=== PATIENT | female | born 1975 | race African-American/Black ===

== ENCOUNTER 2022-09-21 19:31 | Inpatient (IN) | payer OTHER, MEDICAID, SELFPAY ==
--- NOTE | ~2022-09-21 | XR_ITS ---
EXAMINATION: XR chest 1V portable Exam Date/Time: 09/26/2022 19:40 AIRCRAFT SYSTEMS REPAIRER HISTORY: PICC placement Comparison: CT abdomen and pelvis, same date. RESULT: Lines, tubes, and devices: New right upper extremity PICC, tip terminating at the cavoatrial junctio n. Lungs and pleura: Bibasilar atelectasis, otherwise clear. Cardiomediastinal silhouette: Stable. Other: No acute osseous or upper abdominal finding. IMPRESSION: Right upper extremity PICC, in good position. Reviewed, dictated and finalized at location K. RAFT SYSTEMS REPAIRER
--- NOTE | ~2022-09-21 | CT_ITS ---
EXAMINATION: CT guide absc cath placement DATE: 09/27/2022 14:39 INDICATION: Abdominal abscess. TECHNIQUE: The procedure including the risks, benefits, and alternatives was discussed with the patie nt. Risks discussed included bleeding and infection. The patient understood the risks and benefits an d agreed to proceed. The skin overlying the abdomen was prepped and draped in usual sterile fashion. Anesthetic was administered with 1% lidocaine subcutaneously. Moderate sedation was achieved with 1 mg Versed IV and 100 mcg fentanyl IV. An 18 gauge trochar needle was inserted into the abdominal absc ess with CT guidance. The needle was exchanged over a wire for 6 Togolese and 8 Togolese dilators and the n for an 8.5 Togolese pigtail catheter. The catheter was stitched to the skin, and a sterile dressing w as applied. The mA was adjusted according to patient size. Iterative reconstruction technique was emp loyed. The dose-length product was 327.63 mGy-cm. There were no immediate complications. FINDINGS: CT images demonstrate the catheter within the abdominal abscess. 5 mL fluid was aspirated f or testing. IMPRESSION: 1. Successful CT-guided abdominal abscess drainage. 2. 5 mL opaque, calloway fluid was sent for aerobic and anaerobic cultures. Reviewed, dictated and finalized at location A. TRIC TRACK SWITCH MAINTAINER
--- NOTE | ~2022-09-21 | CT_ITS ---
EXAMINATION: CT abdomen pelvis wo con DATE: 09/26/2022 10:01 INDICATION: diverticulitis c microperf TECHNIQUE: Computed tomography (CT) of the abdomen and pelvis was performed without intravenous contr ast. Automated exposure control and iterative reconstruction technique were employed. The dose-length product was 439.34 mGy-cm. COMPARISON: 09/22/2022. FINDINGS: Lower thorax: Bibasilar atelectasis. Liver: Normal. Biliary/Gallbladder: Gallbladder is absent. No bile duct dilation. Pancreas: No mass or duct dilation. Spleen: Normal. Adrenals:No mass. Kidneys: No mass, stone, or hydronephrosis. GI tract: Similar short segment wall thickening in the left/mid abdominal sigmoid colon. Inflammatory change involving an adjacent loop of small bowel. No small or large bowel dilation. Mild asymmetric wall thickening of the adjacent appendix, likely reactive. Mesentery/Peritoneum: Small volume free air in the upper, nondependent abdomen and mesentery. Increas ed inflammatory change in the mid/lower abdominal mesentery, with a new fluid and gas collection mirian uring 3.1 x 3.7x 4.2 cm adjacent to the thickened portion of the sigmoid in the area of prior micrope rforation. Inflammatory changes involve adjacent bowel loops, the adjacent appendix, and likely the p elvic organs. Retroperitoneum: No mass. Pelvis: Bladder wall thickening and surrounding inflammatory change. No significant free pelvic fluid . Soft Tissues: Soft tissues and body wall unremarkable. Bones: No acute osseous finding. IMPRESSION: Worsening findings of acute, complicated diverticulitis, with perforation, new small volume pneumoper itoneum, worsening inflammatory change, and a new 4.2 cm pericolonic gas and fluid collection which m ay represent early pericolonic abscess. Reviewed, dictated and finalized at location K. RVISOR RECLAMATION IMPRESSION: Worsening findings of acute, complicated diverticulitis, with perforation, new small volume pneumoperitoneum, worsening inflammatory change, and a new 4.2 cm pericolonic gas and fluid collection which may represent early pericolonic absc ess.
--- NOTE | ~2022-09-21 | CT_ITS ---
CT Abdomen and Pelvis with contrast. History: Periumbilical pain. Spiral CT of the abdomen and pelvis was performed after the administration of intravenous contrast. 1 00 cc of Omnipaque 350 was administered intravenously without complication. Dose reduction technique was used on this scan by utilizing automated exposure control and iterative reconstruction technique. The dose-length product (DLP) was 434.55 mGy-cm. Findings: Scans through the lung bases are clear. Small hiatal hernia noted. Several tiny scattered hepatic cysts are noted. Cholecystectomy clips present. The spleen, pancreas, adrenals and kidneys are within normal limits. No evidence of aortic aneurysm. No lymphadenopathy i s seen. There is no evidence of bowel obstruction. There is wall thickening of the sigmoid colon with pericol onic inflammatory change and several tiny bubbles of extraluminal air in this region. No mature/drain able abscess. There is also wall thickening of several adjacent small bowel loops, most likely reacti ve. Images through the pelvis were performed. Urinary bladder unremarkable. No adnexal mass evident. No a scites is seen. Impression: Inflammatory process in the left lower quadrant, most compatible with acute sigmoid diverticulitis wi th microperforation and small bubbles of free air, and surrounding inflammatory changes. Probable sec ondary, reactive wall thickening of adjacent small bowel loops. Primary small bowel enteritis felt to be less likely. No abscess evident at this time. Reviewed, dictated and finalized at [facility]. SERVICE CONTINUITY SUPERVISOR Impression: Inflammatory process in the left lower quadrant, most compatible with acute sig moid diverticulitis with microperforation and small bubbles of free air, and de [place] santos rrounding inflammatory changes. Probable secondary, reactive wall thickening of adjacent small bowel loops. Primary small bowel enteritis felt to be less like ly. No abscess evident at this time.
[2022-09-21 20:03] VITALS: BP 156/100; PULSE 82; RESP 18; TEMP 36.9; O2SAT 100
--- NOTE | 2022-09-21 22:19 | ED.ABDPAIN ---
HPI - Abdominal Pain General Chief Complaint: Abdominal Pain <JESUS Mcclain Last Filed: 09/22/22 02:50> Stated Complaint: abd pain <JESUS Mcclain Last Filed: 09/22/22 02:50> Time Seen by Provider: 09/21/22 22:05 <JESUS Mcclain Last Filed: 09/22/22 02:50> History of Present Illness HPI narrative: Patient is a 47-year-old female here for evaluation of abdominal pain over the past day. Patient states the pain is sharp and stabbing in nature and is located around her umbilicus. She also notes countless episodes of nausea and vomiting over the past day and has been unable to tolerate any p.o. Reports subjective fevers but has not taken her temperature. No diarrhea, constipation, urinary symptoms. Denies history of previous similar sensation. No history of abdominal surgeries. <JESUS Mcclain Last Filed: 09/22/22 02:50> Related Data Allergies/Adverse Reactions: Allergies Allergy/AdvReac Type Severity Reaction Status Date / Time No Known Allergies Allergy Verified 09/21/22 20:11 <JESUS Mcclain Last Filed: 09/22/22 02:50> Review of Systems Review of Systems: Gen: Reports chills. Eyes: Denies eye pain or visual change ENT: Denies congestion Respiratory: Denies shortness of breath or cough CV: Denies chest pain or palpitations GI: Reports abdominal pain, nausea and vomiting : denies burning, urgency, frequency or hematuria Musculoskeletal: Denies back pain or muscle pain Neuro: Denies numbness, tingling, weakness or focal weakness Skin: Denies rash Except as documented, all other systems reviewed and negative <JESUS Mcclain Last Filed: 09/22/22 02:50> Exam Narrative: APPEARANCE: Ill-appearing, lying on side of stretcher with drool coming out of the mouth holding emesis bag Head: Normocephalic and atraumatic. EYES: PERRLA/EOMI, conjunctivae clear NOSE: No nasal drainage EARS: External ear normal in appearance THROAT: Oropharynx is clear. Mucous membranes are moist. NECK: Supple. No adenopathy, no masses. RESPIRATORY: Airway patent, respirations nonlabored. Clear to auscultation bilaterally, no rales, rhonchi, wheezing. CARDIOVASCULAR: Regular rate and rhythm without murmurs, rubs, or gallops. ABDOMINAL: Tender to palpation in the epigastric/periumbilical region, involuntary guarding. MUSCULOSKELETAL: Extremities are warm and well-perfused. Moves all extremities well. No edema. NEURO: Normal speech. No focal neurologic deficits. SKIN: Skin is warm and dry. No rashes. PSYCHIATRIC: Normal affect/mood. <Za Garber PA-C - Last Filed: 09/22/22 02:50> Course CLOTH WASHER OPERATOR/PA Physician Supervision For this encounter, I have reviewed the mid-level provider documentation, treatment plan and medical decision making. I have had [id number] time with the patient. Physical exam revealed a 47-year-old female with a diffusely tender abdomen. Worse in the left lower quadrant. CT abdomen pelvis showed colitis with microperforations. Suspect diverticulitis. Patient was started on IV antibiotics, given fluid resuscitation and pain medication. Coordination of care involved calls to the surgeon Dr. Bae as well as the hospitalist Dr. Tucker. Patient will be admitted to the hospital for further management.All questions answered. Patient in agreement w/ disposition. <Royer Mcdaniel MD - Last Filed: 09/22/22 03:36> Vital Signs Vital signs: Vital Signs Temperature 98.5 F 09/21/22 20:03 Pulse Rate 82 09/21/22 20:03 Respiratory Rate 18 09/21/22 20:03 Blood Pressure 156/100 H 09/21/22 20:03 Pulse Oximetry 100 09/21/22 20:03 Oxygen Delivery Room Air 09/21/22 20:03 Temperature 98.5 F 09/21/22 20:03 Pulse Rate 80 09/22/22 02:34 Respiratory Rate 19 09/22/22 02:34 Blood Pressure 119/89 09/22/22 02:34 Pulse Oximetry 93 09/22/22 02:34 Oxygen Delivery Room Air
[2022-09-21 22:50] LABS: Basophils Absolute Auto 0.1 K/mm3 (0.0-0.1); Basophils Percent Auto 0.4 % (0.2-1.2); Eosinophils Percent Auto 0.1 % (0-4.4); Hematocrit 35.1 % (37.0-47.0); Hemoglobin 11.9 g/dL (12.0-15.0); Immature Granulocyte Absolute 0.07 K/mm3 (0.00-0.031); Immature Granulocyte Percent A 0.5 % (0-0.5); Lymphocytes Absolute Auto 0.42 K/mm3 (0.9-3.2); Lymphocytes Percent Auto 2.9 % (18.3-44.2); Mean Corpuscular HGB Conc 33.9 g/dl (32-36); Mean Corpuscular Volume 85.6 fl (80-100); Mean Platelet Volume 9.2 fl (7.4-10.4); Monocytes Absolute Auto 0.4 K/mm3 (0.1-0.6); Monocytes Percent Auto 2.4 % (2.6-8.5); Neutrophils Absolute Auto 13.6 K/mm3 (1.3-6.7); Neutrophils Percent Auto 93.7 % (45.5-73.1); Platelet Count Result 400 k/mm3 (150-375); White Blood Count 14.5 K/mm3 (4.5-10.0)
[2022-09-21 23:00] VITALS: BP 130/74; PULSE 80; RESP 14; O2SAT 98
[2022-09-21] MEDS: LACTATED RINGERS 1,000 ML 999 ML IV CONT (23:31)
[2022-09-21] MEDS: MORPHINE SULFATE (*CRX) 4 MG/ML INJ IV PUSH (23:33)
[2022-09-21] MEDS: FAMOTIDINE 20 MG/2 ML VIAL IV PUSH (23:33)
[2022-09-21] MEDS: ONDANSETRON INJ 4 MG/2 ML VIAL IV PUSH (23:33)
--- NOTE | 2022-09-22 | PC.NURSE ---
RN asked pt. for UA, pt. states she cannot go.
[2022-09-22 00:17] LABS: Alanine Aminotransferase 22 U/L (6-35); Albumin Level 4.9 g/dL (3.5-5.1); Alkaline Phosphatase 89 U/L (38-126); Anion Gap 9 mmol/L (8-16); Aspartate Amino Transferase 26 U/L (14-36); Bilirubin,Total 0.7 mg/dL (0.2-1.3); Blood Urea Nitrogen 14 mg/dL (7-17); Calcium 9.9 mg/dL (8.4-10.2); Carbon Dioxide 27 mmol/L (22-30); Chloride 101 mmol/L (98-107); Estimated CRCL calculation 83 ml/min; Estimated Glomerular Filt Rate > 60; Glucose 160 mg/dL (65-110); Lipase 32 U/L (23-300); Potassium 3.8 mmol/L (3.4-5.0); Sodium 137 mmol/L (137-145)
[2022-09-22 00:21] VITALS: BP 173/91; PULSE 75; RESP 14; O2SAT 100
[2022-09-22] MEDS: LACTATED RINGERS 1,000 ML 999 ML IV CONT (00:45)
[2022-09-22] MEDS: MORPHINE SULFATE (*CRX) 2 MG/ML INJ IV PUSH (00:45)
--- NOTE | 2022-09-22 01:00 | PC.NURSE ---
Pt. unable to provided urine sample.
[2022-09-22] MEDS: HYDROmorphone HCL INJ (*CRX) 1 MG/ML SYR IV PUSH ×5 (02:27→18:16)
[2022-09-22 02:29] LABS: Appearance Urine Clear (Clear); Bilirubin Urine Negative (Negative); Blood Urine Trace-lysed (Negative); Color Urine Yellow (Yellow); Glucose Urine UA Negative (Negative); Ketones Urine Negative (Negative); Leukocyte Esterase Ur Negative LEU/UL (Negative); Nitrate Urine Negative (Negative); Protein Urine 1+ mg/dL (Negative); Urobilinogen Urine 0.2 mg/dL (<2.0)
[2022-09-22 02:34] VITALS: BP 119/89; PULSE 80; RESP 19; O2SAT 93
[2022-09-22 02:35] LABS: Bacteria Urine Trace /hpf; Mucus Urine Rare /lpf; RBC Urine 0-2 /hpf (0-2); WBC Urine 0-3 /hpf
[2022-09-22 02:46] LABS: Add Urine Microscopic? YES
--- NOTE | 2022-09-22 02:46 | PM.IMHP ---
H&P: HPI History of Present Illness Date/Time: 09/22/22 02:46 Chief Complaint: Abdominal pain Narrative: 47-year-old female with known significant past medical history presents to the emergency room with abdominal pain for the last 2 weeks which has been worse in the last 3 days with nausea and vomiting, pain is diffusely localized. Denies any fevers, rigors, chills, denies any melena, bright red blood per rectum, no hematemesis. A CT of abdomen and pelvis was reported as: Impression: Inflammatory process in the left lower quadrant, most compatible with acute sigmoid diverticulitis with microperforation and small bubbles of free air, and surrounding inflammatory changes. Probable secondary, reactive wall thickening of adjacent small bowel loops. Primary small bowel enteritis felt to be less likely. No abscess evident at this time. Review of Systems Review of Systems: Abdominal pain, nausea, vomiting. Constitutional: Constitutional: Denies chills, Denies fever(s), Denies malaise, Denies night sweats and Reports poor appetite Eyes: Eyes: Denies change in vision ENT: Denies dysphagia and Denies odynophagia Cardiovascular: Cardiovascular: Denies chest pain, Denies leg edema, Denies lightheadedness and Denies palpitations Respiratory: Respiratory: Denies chest congestion, Denies cough, Denies excessive phlegm production, Denies pain on inspiration and Denies dyspnea on exertion Gastrointestinal: Gastrointestinal: Reports abdominal pain, Denies melena, Denies hematochezia, Denies coffee ground emesis, Denies dyspepsia, Denies diarrhea, Reports nausea and Reports vomiting Genitourinary: Genitourinary: Denies dysuria Musculoskeletal: Musculoskeletal: Denies back pain, Denies joint swelling and Denies muscle weakness Integumentary/Breasts: Skin/Breast: Denies rash Neurologic: Denies focal weakness and Denies Sensory deficit (Neuro) Psychiatric: Psychiatric: Reports no additional psychiatric complaints and Reports as per HPI Endocrine: Endocrine: Denies cold intolerance, Denies flushing, Denies heat intolerance, Denies polyphagia, Denies polydipsia and Denies palpitations Hematologic/Lymphatic: Hematologic/Lymphatic: Reports no additional hematologic/lymphatic complaints and Reports as per HPI Allergic/Immunologic: Allergic/Immunologic: Reports no additional allergic/immunologic complaints and Reports as per HPI [facility] Past Medical History Medical History No significant past medical history Surgical History Surgical History History of ankle surgery History of laparoscopic cholecystectomy History of tubal ligation Social History Social History Smoking status: Never smoker Second hand tobacco smoke exposure: No Alcohol intake: current Substance use: former Substance use type: marijuana Lack of Transportation: No Lack of Food: Never True Current Housing: I Have Housing Concerned About Future Housing: No Difficulty Paying Gas/Electric Bills: No Difficulty Paying for Meds: No Currently Unemployed: No Education: High School Diploma/GED Difficulty w/ Childcare or Family Care: No Occupation/Education: occupation Additional occupation/education comments: Works for [employer] Spiritual care concerns: No Meds Home Medications and Allergies Home Medications Medication Instructions Recorded Confirmed Type No Home Medications 09/22/22 09/22/22 History Allergies Allergy/AdvReac Type Severity Reaction Status Date / Time No Known Allergies Allergy Verified 09/21/22 20:11 Vital Signs Vital Signs - 24 hr 09/21/22 20:03 09/21/22 23:00 09/22/22 00:21 Temperature 98.5 F Pulse Rate 82 80 75 Respiratory Rate 18 14 14 Blood Pressure 156/100 H 130/74 173/91 H Pulse Oximetry 100 98 100 Oxygen Delivery Room
[2022-09-22 03:02] LABS: Lactic Acid Reflex 1.5 mmol/L (0.7-2.0)
[2022-09-22 03:30] LABS: Influenza A QL RT-PCR Negative (Negative); Influenza B QL RT-PCR Negative (Negative); SARS-CoV-2 RNA PCR Negative
[2022-09-22] MEDS: LACTATED RINGERS 1,000 ML 150 ML IV CONT (03:55)
[2022-09-22 04:39] VITALS: BMI 29.0
[2022-09-22 06:00] VITALS: BP 165/84; PULSE 78; RESP 14; TEMP 36.9; O2SAT 100
--- NOTE | 2022-09-22 09:45 | PM.IMPN ---
Progress Note: A&P Assessment and Plan (1) Diverticulitis: Code(s): K57.92 - Diverticulitis of intestine, part unspecified, without perforation or abscess without bleeding Status: Acute Assessment and Plan: CT of the abdomen and pelvis shows inflammatory process in the lower left quadrant compatible with acute sigmoid diverticulitis with micro perforation small bubbles of free air and inflammatory changes continue IV Zosyn for now general surgery consult Pain medications on board IV fluids NPO for now (2) Abdominal pain: Code(s): R10.9 - Unspecified abdominal pain Status: Acute Assessment and Plan: Likely secondary to diverticulitis Supportive care pain medications available (3) Nausea and vomiting: Code(s): R11.2 - Nausea with vomiting, unspecified Status: Acute Assessment and Plan: NPO except for ice chips seems to be resolved (4) Hypertension: Code(s): I10 - Essential (primary) hypertension Status: Acute Assessment and Plan: blood pressure slightly high at 148/72 on no home medications continue trend most likely elevated due to patient's pain and diverticulitis Time Spent With Patient Time: 51 minutes Time with patient: Greater than 35 minutes Subjective Date/time seen: 09/22/22944 Interval history: 09/22/22944 Patient seems to be ok. She is still having some pretty severe abdominal pain, which she rates a 10/10. She also stated that it starts in the middle then radiates all over. She denies any chest pain, shortness a breath, nausea, vomiting, diarrhea constipation. She stated that she does feel very weak. 09/22/22? 02:46 47-year-old female with known significant past medical history presents to the emergency room with abdominal pain for the last 2 weeks which has been worse in the last 3 days with nausea and vomiting Review of Systems Review of Systems: All systems reviewed & are unremarkable except as noted in HPI and below Exam Narrative: General: well-nourished, well-appearing 47-year-old female, sitting up in bed, comfortable, NARD Neuro: awake, alert and oriented x4, speech clear, no focal neuro deficits noted HEENMT: normocephalic, atraumatic, EOMI, sclerae anicteric, moist oral mucosa Respiratory: Clear to auscultation bilaterally without crackles, rhonchi or wheezes, nonlabored breathing Cardio: regular rate, regular rhythm with S1-S2 Abdomen: nondistended, no bowel sounds, soft, tender to palpation Extremities: no edema, erythema, or tenderness to palpation, DP pulses 2+ bilaterally Skin: no rashes or lesions, warm and dry Psych: appropriate mood and affect, judgment and insight intact Objective Data Vital Signs Vital Signs: Vital Signs - 24 hr 09/21/22 20:03 09/21/22 23:00 09/22/22 00:21 Temperature 98.5 F Pulse Rate 82 80 75 Respiratory Rate 18 14 14 Blood Pressure 156/100 H 130/74 173/91 H Pulse Oximetry 100 98 100 Oxygen Delivery Room Air 09/22/22 02:34 09/22/22 06:00 09/22/22 11:02 Temperature 98.4 F Pulse Rate 80 78 Respiratory Rate 19 14 Blood Pressure 119/89 165/84 H Pulse Oximetry 93 100 94 Oxygen Delivery Room Air 09/22/22 08:30 09/22/22 14:00 Temperature 97.7 F Pulse Rate 83 Respiratory Rate 14 Blood Pressure 148/72 H Pulse Oximetry 100 Oxygen Delivery Room Air Intake/Output Intake/Output: Intake & Output 09/19/22 09/20/22 09/21/22 09/22/22 23:59 23:59 23:59 23:59 Intake Total 2100 Balance 2100 Meds/Results Medications: Active Medications Generic Name Dose Route Start Last Admin Trade Name Freq PRN Reason Stop Dose Admin Hydromorphone HCl 1 mg 09/22/22 11:32 09/22/22 13:24 Hydromorphone Hcl Inj (*Crx) 1 Mg/Ml Syr IV PUSH 1 mg Q2H PRN Administration Pain Rated 7-10 Hydromorphone HCl 0.5 mg 09/22/22 11:28 Hydromorphone Hcl I
--- NOTE | 2022-09-22 09:54 | PM.CNGS ---
Assessment and Plan Assessment and plan (1) Diverticulitis of intestine with perforation without abscess: Code(s): K57.80 - Diverticulitis of intestine, part unspecified, with perforation and abscess without bleeding Status: Acute Assessment and Plan: CT reviewed and showed evidence of sigmoid diverticulitis with microperforation. No organized abscess noted. This is her first episode of diverticulitis. I discussed the CT results and pathophysiology of this disease process with the patient. We would recommend to continue with conservative management at this time. Continue broad-spectrum IV antibiotics, IV fluids, bowel rest, and analgesics as needed. I discussed with the patient that we try to avoid surgery in the acute phase as it comes with a higher risk of a colostomy, but this may need to be considered if she is getting worse with conservative treatment. Will continue to monitor with serial abdominal exams and labs. Plan I have discussed the patient's case and plan of care with Dr. Bae. Thank you for allowing us to see the patient in consultation and we will continue to follow along with you. History of Present Illness Consult details Consult date: 09/22/22 Reason for consult: other (Diverticulitis with perforation) Requesting physician: Za Garber PA-C Narrative: This is an otherwise healthy 47-year-old woman who presented to the ER overnight with complaints of lower abdominal pain, vomiting, and diarrhea x 2 days. She reports having a 3 day episode of vomiting and diarrhea about 3 weeks ago. This resolved with time. She had some upper abdominal cramping pain and thought she had gastroenteritis at that time. Her symptoms improved and she was feeling back to her baseline up until two days ago. She reports eating a large amount of pasta and chicken wings for a late dinner on Tuesday night. She woke up Tuesday morning with some suprapubic abdominal pain and general malaise. She initially thought this was due to her large meal the night before. She went to work and throughout the day her pain became more severe and she developed nausea, vomiting, and diarrhea. She went home and had innumerable episodes of vomiting and diarrhea through the night. She additionally reports generalized weakness after all the vomiting, and chills. Yesterday, her symptoms persisted and her significant other eventually called EMS. In the ER, she was found to have a white blood cell count of 14,500. CT scan of the abdomen and pelvis showed an inflammatory process in the left lower quadrant, consistent with acute sigmoid diverticulitis with microperforation and small bubbles of free air and surrounding inflammatory changes. No organized abscess seen. She was admitted to the Hospitalist service and started on IV Zosyn, IV fluids, analgesics, and made NPO. Our service has been consulted for the diverticulitis with microperforation. She is now seen on the medical floor. She is still having lower abdominal pain most focally in the suprapubic area. She has not noticed any improvement. No more vomiting since being admitted to the medical floor. She denies nausea this morning. She has not had any further diarrhea since admission. She does reports some blood-streaked appearance to her diarrhea but no hematochezia or melena. No coffee-ground or bloody emesis. She denies previous episodes of diverticulitis. No previous colonoscopy. No other specific complaints at this time. Review of Systems Review of Systems: All systems reviewed & are unremarkable except as noted in HPI and below Constitutional: Constitutional: Reports no additional constitutional complaints, Reports chills, Denies fever(s), Reports malaise and Reports weakness Eyes: Eyes: Reports no additional eye complaints ENT: Reports system reviewed and no additional complaints, except as documented and Denies dizziness Cardiovascular: Cardiovascular: Reports no additional cardiovascular complaints, Den
[2022-09-22 11:02] VITALS: O2SAT 94
[2022-09-22 11:16] LABS: Basophils Percent Auto 0.1 % (0.2-1.2); Hematocrit 31.5 % (37.0-47.0); Hemoglobin 10.8 g/dL (12.0-15.0); Immature Granulocyte Absolute 0.06 K/mm3 (0.00-0.031); Immature Granulocyte Percent A 0.4 % (0-0.5); Lymphocytes Absolute Auto 0.75 K/mm3 (0.9-3.2); Lymphocytes Percent Auto 5.4 % (18.3-44.2); Mean Corpuscular HGB Conc 34.3 g/dl (32-36); Mean Corpuscular Hemoglobin 28.3 pg (26-34); Mean Corpuscular Volume 82.7 fl (80-100); Mean Platelet Volume 8.7 fl (7.4-10.4); Monocytes Absolute Auto 0.6 K/mm3 (0.1-0.6); Monocytes Percent Auto 4.2 % (2.6-8.5); Neutrophils Absolute Auto 12.4 K/mm3 (1.3-6.7); Neutrophils Percent Auto 89.9 % (45.5-73.1); Platelet Count Result 338 k/mm3 (150-375); Red Blood Count 3.81 M/mm3 (4.2-5.4); Red Cell Distribution Width 14.7 % (11.5-14.5); White Blood Count 13.8 K/mm3 (4.5-10.0)
[2022-09-22 11:28] LABS: Alanine Aminotransferase 20 U/L (6-35); Albumin Level 4.5 g/dL (3.5-5.1); Alkaline Phosphatase 82 U/L (38-126); Anion Gap 5 mmol/L (8-16); Aspartate Amino Transferase 23 U/L (14-36); Bilirubin,Total 0.7 mg/dL (0.2-1.3); Blood Urea Nitrogen 11 mg/dL (7-17); Calcium 9.5 mg/dL (8.4-10.2); Carbon Dioxide 30 mmol/L (22-30); Chloride 102 mmol/L (98-107); Estimated CRCL calculation 82 ml/min; Estimated Glomerular Filt Rate > 60; Glucose 129 mg/dL (65-110); Magnesium 2.1 mg/dL (1.6-2.3); Potassium 3.5 mmol/L (3.4-5.0); Sodium 137 mmol/L (137-145)
[2022-09-22] MEDS: LACTATED RINGERS 1,000 ML 100 ML IV CONT (13:24)
[2022-09-22 14:00] VITALS: BP 148/72; PULSE 83; RESP 14; TEMP 36.5; O2SAT 100
--- NOTE | 2022-09-22 20:17 | PC.NURSE ---
Pt continues to have pain. Pt has been treated with IV tylenol and IV dilaudid. Pt was moved from 330-2 to 301 due to needing a private room. Pt is compliant with care. Pt is A&O 4. Pt participates and contributes in plan of care. Pt has no complaints at this time. Will continue to monitor pt.
[2022-09-22 22:00] VITALS: BP 140/86; PULSE 86; RESP 18; TEMP 36.3; O2SAT 100
[2022-09-22] MEDS: HYDROmorphone HCL INJ (*CRX) 1 MG/ML SYR 0.5 MG IV PUSH (22:00)
--- NOTE | 2022-09-22 22:17 | PC.NURSE ---
Spoke with Dr. Tucker at this time asking for something for this patient to help her sleep. New orders received for trazadone 50 mg po once
[2022-09-22] MEDS: traZODone HCL 50 MG TABLET PO (22:41)
[2022-09-23] MEDS: HYDROmorphone HCL INJ (*CRX) 1 MG/ML SYR IV PUSH ×7 (01:18→20:10)
[2022-09-23] MEDS: LACTATED RINGERS 1,000 ML 100 ML IV CONT (01:19)
[2022-09-23 06:00] VITALS: BP 134/94; PULSE 84; RESP 18; TEMP 36.4; O2SAT 100
[2022-09-23 06:15] LABS: Mean Corpuscular HGB Conc 33.3 g/dl (32-36); Mean Corpuscular Hemoglobin 27.8 pg (26-34); Mean Corpuscular Volume 83.3 fl (80-100); Platelet Count Result 321 k/mm3 (150-375); Red Cell Distribution Width 14.6 % (11.5-14.5); White Blood Count 10.3 K/mm3 (4.5-10.0)
[2022-09-23 06:41] LABS: Anion Gap 5 mmol/L (8-16); Blood Urea Nitrogen 9 mg/dL (7-17); Calcium 8.7 mg/dL (8.4-10.2); Carbon Dioxide 28 mmol/L (22-30); Chloride 101 mmol/L (98-107); Estimated CRCL calculation 82 ml/min; Estimated Glomerular Filt Rate > 60; Glucose 106 mg/dL (65-110); Potassium 3.2 mmol/L (3.4-5.0); Sodium 134 mmol/L (137-145)
[2022-09-23] MEDS: ENOXAPARIN 40 MG/0.4 ML SYRINGE SUB-Q (08:30)
--- NOTE | 2022-09-23 10:18 | PM.PNGS ---
Progress Note: A&P Assessment and Plan (1) Diverticulitis of intestine with perforation without abscess: Code(s): K57.80 - Diverticulitis of intestine, part unspecified, with perforation and abscess without bleeding Status: Acute Assessment and Plan: Still having a fair amount of abdominal pain and tenderness. WBC trending down, afebrile, and no tachycardia. Will try to add IV Ibuprofen to help with pain control. Will keep NPO with IV fluids Continue IV Zosyn Repeat labs tomorrow. May need to consider repeating a CT scan in the next 1-2 days if no improvement in her abdominal pain or exam Plan I have discussed the patient's case and plan of care with Dr. Bae. Subjective Subjective Date/Time Seen: 09/23/22 10:18 Patient reports: no new complaints, still having pain, flatus, no bowel movement and afebrile Interval history: Patient seen this morning and still complaining of lower abdominal pain. Her pain is about the same as yesterday. She does feel that the IV Tylenol is helping control her pain better than the Dilaudid. She denies any further nausea or vomiting since admission. Review of Systems Review of Systems: ROS unchanged Exam Const: General: awake and uncomfortable Orientation/consciousness: patient oriented x3 GI: Inspection: non-distended GI Palp: Yes Soft to palpation, Yes Tenderness to palpation present (GI) (diffusely tender, worse in the lower abdomen), Yes Guarding due to palpation present (GI) (LLQ, suprapubic) and Yes Rebound tenderness present Auscultation: Hyperactive bowel sounds present Objective Data Vital Signs Vital Signs: Vital Signs - 24 hr 09/22/22 11:02 09/22/22 14:00 09/22/22 22:00 Temperature 97.7 F 97.4 F L Pulse Rate 83 86 Respiratory Rate 14 18 Blood Pressure 148/72 H 140/86 Pulse Oximetry 94 100 100 Oxygen Delivery Room Air 09/22/22 20:00 09/23/22 06:00 Temperature 97.6 F Pulse Rate 84 Respiratory Rate 18 Blood Pressure 134/94 H Pulse Oximetry 100 Oxygen Delivery Room Air Intake/Output Intake/Output: Intake & Output 09/20/22 09/21/22 09/22/22 09/23/22 23:59 23:59 23:59 23:59 Intake Total 3400 50 Output Total 600 1350 Balance 2800 -1300 Meds/Results Medications: Active Medications Generic Name Dose Route Start Last Admin Trade Name Freq PRN Reason Stop Dose Admin Enoxaparin Sodium 40 mg 09/23/22 09:00 Enoxaparin 40 Mg/0.4 Ml Syringe SUB-Q DAILY MICHOACANO Hydromorphone HCl 1 mg 09/22/22 11:32 09/23/22 08:47 Hydromorphone Hcl Inj (*Crx) 1 Mg/Ml Syr IV PUSH 1 mg Q2H PRN Administration Pain Rated 7-10 Hydromorphone HCl 0.5 mg 09/22/22 11:28 09/22/22 22:00 Hydromorphone Hcl Inj (*Crx) 1 Mg/Ml Syr IV PUSH 0.5 mg Q2H PRN Administration Pain Rated 4-6 Piperacillin/Tazobactam/Dextrose 3.375 gm in 50 mls @ 100 mls/hr 09/22/22 09:00 09/23/22 08:48 Zosyn 3.375 Gm/D5w 50ml Pm IVPB 100 mls/hr Q6H MICHOACANO Administration Acetaminophen 1,000 mg in 100 mls @ 400 mls/hr 09/22/22 11:28 09/22/22 19:38 Ofirmev 1,000 Mg Ivpb IVPB 09/23/22 11:27 Infused Q6H PRN Infusion Pain Rated 1-3 Potassium Chloride 40 meq/ 520 mls @ 130 mls/hr 09/23/22 08:02 Sodium Chloride IVPB 09/23/22 12:01 ONCE ONE Potassium Chloride/Sodium Chloride 1,000 mls @ 100 mls/hr 09/23/22 10:05 Kcl 40 Meq/Ns IV CONT .Q10H [facility] Radiology Results: ITS Impressions Abdomen/Pelvis CT 09/22/22 05:53 Impression: Inflammatory process in the left lower quadrant, most compatible with acute sigmoid diverticulitis with microperforation and small bubbles of free air, and surrounding inflammatory changes. Probable secondary, reactive wall thickening of adjacent small bowel loops. Primary small bowel enteritis felt to be less likely. No abscess evident at this time. Labs Labs: Laboratory Results - last 24 hr 09/22/22 09/22/22 09/23/22 11:00 11:0
--- NOTE | 2022-09-23 10:30 | PM.IMPN ---
Progress Note: A&P Assessment and Plan (1) Diverticulitis: Code(s): K57.92 - Diverticulitis of intestine, part unspecified, without perforation or abscess without bleeding Status: Acute Assessment and Plan: ?CT of the abdomen and pelvis shows inflammatory process in the lower left quadrant compatible with acute sigmoid diverticulitis with micro perforation small bubbles of free air and inflammatory changes ?continue IV Zosyn for now ?general surgery consult ?Pain medications on board Consider some Ibprofen if possible for better pain control ?IV fluids, changed to KCL ?NPO for now (2) Abdominal pain: Code(s): R10.9 - Unspecified abdominal pain Status: Acute Assessment and Plan: Likely secondary to diverticulitis Supportive care pain medications available Continue NPO status (3) Hypertension: Code(s): I10 - Essential (primary) hypertension Status: Acute Assessment and Plan: ?blood pressure slightly high at 134/94 ?on no home medications ?continue trend ?most likely elevated due to patient's pain and diverticulitis (4) Hypokalemia: Code(s): E87.6 - Hypokalemia Status: Acute Assessment and Plan: K is 3.2 Replace with 40meq IV Change IV fluids to have potassium in it trend potassium Replace as indicated Time Spent With Patient Time: 47 minutes Time with patient: Greater than 35 minutes Subjective Date/time seen: 09/23/22 1030 Interval history: 09/23/22 1030 Patient is doing ok. She is still complaining of 10/10 pain. She also stated that she wanted to take a hot shower. She also wanted something to drink, however, talked to her about getting her pain better controlled before getting anything to eat. She denies any chest pain, shortness of breath, nausea, vomiting, diarrhea, or constipation. She denies having a BM but did say that she is passing gas. 09/22/22 0945 Patient seems to be ok. She is still having some pretty severe abdominal pain, which she rates a 10/10. She also stated that it starts in the middle then radiates all over. She denies any chest pain, shortness a breath, nausea, vomiting, diarrhea constipation. She stated that she does feel very weak. 09/22/22? 02:46 47-year-old female with known significant past medical history presents to the emergency room with abdominal pain for the last 2 weeks which has been worse in the last 3 days with nausea and vomiting Review of Systems Review of Systems: All systems reviewed & are unremarkable except as noted in HPI and below Exam Narrative: General: well-nourished, well-appearing 47-year-old female, sitting up in bed, comfortable, NARD Neuro: awake, alert and oriented x4, speech clear, no focal neuro deficits noted HEENMT: normocephalic, atraumatic, EOMI, sclerae anicteric, moist oral mucosa Respiratory: Clear to auscultation bilaterally without crackles, rhonchi or wheezes, nonlabored breathing Cardio: regular rate, regular rhythm with S1-S2 Abdomen: nondistended, normoactive bowel sounds, soft, nontender to palpation Extremities: no edema, erythema, or tenderness to palpation, DP pulses 2+ bilaterally Skin: no rashes or lesions, warm and dry Psych: appropriate mood and affect, judgment and insight intact Objective Data Vital Signs Vital Signs: Vital Signs - 24 hr 09/22/22 11:02 09/22/22 08:30 09/22/22 14:00 Temperature 97.7 F Pulse Rate 83 Respiratory Rate 14 Blood Pressure 148/72 H Pulse Oximetry 94 100 Oxygen Delivery Room Air Room Air 09/22/22 22:00 09/22/22 20:00 09/23/22 06:00 Temperature 97.4 F L 97.6 F Pulse Rate 86 84 Respiratory Rate 18 18 Blood Pressure 140/86 134/94 H Pulse Oximetry 100 100 Oxygen Delivery Room Air Intake/Output Intake/Output: Intake & Output 09/20/22 09/21/22 09/22/22 09/23/22 23:59 23:59 23:59 23:59 Intake To
[2022-09-23] MEDS: POTASSIUM CHLORIDE INJ 40 MEQ in SODIUM CHLORIDE 0.9% IV 500 ML 130 MEQ IVPB (11:12)
[2022-09-23 14:00] VITALS: BP 179/84; PULSE 80; RESP 18; TEMP 36.2; O2SAT 100
[2022-09-23] MEDS: SODIUM CHLORIDE 0.9% IV 250 ML 100 ML (14:30)
[2022-09-23] MEDS: IBUPROFEN IV 800 MG/200 ML 800 MG/200 ML BAG 400 MG IVPB (15:45)
[2022-09-23] MEDS: KCL 40 MEQ/0.9% SOD CHL 1,000 ML 100 ML IV CONT (15:46)
[2022-09-23] MEDS: ONDANSETRON INJ 4 MG/2 ML VIAL IV PUSH (20:09)
[2022-09-23 22:00] VITALS: BP 136/71; PULSE 82; RESP 17; TEMP 36.4; O2SAT 98
[2022-09-24] MEDS: HYDROmorphone HCL INJ (*CRX) 1 MG/ML SYR IV PUSH ×4 (02:39→22:40)
[2022-09-24 06:00] VITALS: BP 149/86; PULSE 78; RESP 17; TEMP 36.5; O2SAT 97
[2022-09-24] MEDS: KCL 40 MEQ/0.9% SOD CHL 1,000 ML 100 ML IV CONT (06:08)
[2022-09-24 06:14] LABS: Basophils Percent Auto 0.2 % (0.2-1.2); Eosinophils Percent Auto 0.3 % (0-4.4); Hematocrit 31.3 % (37.0-47.0); Hemoglobin 10.2 g/dL (12.0-15.0); Immature Granulocyte Absolute 0.04 K/mm3 (0.00-0.031); Immature Granulocyte Percent A 0.4 % (0-0.5); Lymphocytes Percent Auto 6.6 % (18.3-44.2); Mean Corpuscular HGB Conc 32.6 g/dl (32-36); Mean Corpuscular Hemoglobin 28.7 pg (26-34); Mean Corpuscular Volume 88.2 fl (80-100); Monocytes Absolute Auto 0.4 K/mm3 (0.1-0.6); Neutrophils Percent Auto 88.5 % (45.5-73.1); Platelet Count Result 335 k/mm3 (150-375); Red Blood Count 3.55 M/mm3 (4.2-5.4); Red Cell Distribution Width 14.9 % (11.5-14.5); White Blood Count 9.1 K/mm3 (4.5-10.0)
[2022-09-24 06:19] LABS: Alanine Aminotransferase 20 U/L (6-35); Albumin Level 3.7 g/dL (3.5-5.1); Alkaline Phosphatase 97 U/L (38-126); Anion Gap 6 mmol/L (8-16); Aspartate Amino Transferase 31 U/L (14-36); Bilirubin,Total 0.9 mg/dL (0.2-1.3); Blood Urea Nitrogen 6 mg/dL (7-17); Calcium 8.4 mg/dL (8.4-10.2); Carbon Dioxide 25 mmol/L (22-30); Chloride 104 mmol/L (98-107); Estimated CRCL calculation 92 ml/min; Estimated Glomerular Filt Rate > 60; Glucose 90 mg/dL (65-110); Magnesium 2.1 mg/dL (1.6-2.3); Potassium 3.5 mmol/L (3.4-5.0); Sodium 135 mmol/L (137-145)
[2022-09-24 06:22] VITALS: BP 149/86; PULSE 80
[2022-09-24] MEDS: ENOXAPARIN 40 MG/0.4 ML SYRINGE SUB-Q (08:08)
[2022-09-24] MEDS: KCL 20 MEQ/SW 100 ML 100 ML 50 MEQ IVPB (08:51)
--- NOTE | 2022-09-24 11:05 | PM.PNGS ---
Progress Note: A&P Assessment and Plan (1) Diverticulitis of intestine with perforation without abscess: Code(s): K57.80 - Diverticulitis of intestine, part unspecified, with perforation and abscess without bleeding Status: Acute Assessment and Plan: Start clear liquids today WBC now normalized Continue IV Zosyn Consider repeat CT if pain worsening Subjective Subjective Date/Time Seen: 09/24/22 11:05 Interval history: Patient mostly complaining of burning from IV fluids. Ibuprofen caused her stomach pain. She is moving her bowels. Tolerating clear liquids so far. No fevers. Exam GI: Inspection: non-distended GI Palp: Yes Soft to palpation, Yes Tenderness to palpation present (GI) (LLQ) and Yes Guarding due to palpation present (GI) (LLQ) Objective Data Vital Signs Vital Signs: Vital Signs - 24 hr 09/23/22 14:00 09/23/22 22:00 09/24/22 06:22 Temperature 36.2 C L 36.4 C Pulse Rate 80 82 80 Respiratory Rate 18 17 Blood Pressure 179/84 H 136/71 149/86 H Pulse Oximetry 100 98 Oxygen Delivery 09/24/22 06:00 09/24/22 08:45 Temperature 36.5 C Pulse Rate 78 Respiratory Rate 17 Blood Pressure 149/86 H Pulse Oximetry 97 Oxygen Delivery Room Air Intake/Output Intake/Output: Intake & Output 09/21/22 09/22/22 09/23/22 09/24/22 23:59 23:59 23:59 23:59 Intake Total 3400 855 1440 Output Total 600 1350 300 Balance 2800 -495 1140 Meds/Results Medications: Active Medications Generic Name Dose Route Start Last Admin Trade Name Freq PRN Reason Stop Dose Admin Acetaminophen 1,000 mg 09/24/22 11:05 Acetaminophen 500 Mg Tablet PO Q6H PRN Mild Pain (1-3) or Fever Enoxaparin Sodium 40 mg 09/23/22 09:00 09/24/22 08:08 Enoxaparin 40 Mg/0.4 Ml Syringe SUB-Q 40 mg DAILY MICHOACANO Administration Hydromorphone HCl 1 mg 09/22/22 11:32 09/24/22 10:49 Hydromorphone Hcl Inj (*Crx) 1 Mg/Ml Syr IV PUSH 1 mg Q2H PRN Administration Pain Rated 7-10 Hydromorphone HCl 0.5 mg 09/22/22 11:28 09/22/22 22:00 Hydromorphone Hcl Inj (*Crx) 1 Mg/Ml Syr IV PUSH 0.5 mg Q2H PRN Administration Pain Rated 4-6 Piperacillin/Tazobactam/Dextrose 3.375 gm in 50 mls @ 100 mls/hr 09/22/22 09:00 09/24/22 08:45 Zosyn 3.375 Gm/D5w 50ml Pm IVPB Infused Q6H MICHOACANO Infusion Potassium Chloride/Sodium Chloride 1,000 mls @ 100 mls/hr 09/23/22 10:05 09/24/22 06:52 Kcl 40 Meq/Ns IV CONT Not Given .Q10H MICHOACANO Lidocaine 1 patch 09/24/22 12:00 Lidocaine 5% Patch TRANSDERM DAILY MICHOACANO Ondansetron HCl 4 mg 09/23/22 19:59 09/23/22 20:09 Ondansetron Inj 4 Mg/2 Ml Vial IV PUSH 4 mg Q6H PRN Administration Nausea And Vomiting Radiology Results: ITS Impressions Abdomen/Pelvis CT 09/22/22 05:53 Impression: Inflammatory process in the left lower quadrant, most compatible with acute sigmoid diverticulitis with microperforation and small bubbles of free air, and surrounding inflammatory changes. Probable secondary, reactive wall thickening of adjacent small bowel loops. Primary small bowel enteritis felt to be less likely. No abscess evident at this time. Labs Labs: Laboratory Results - last 24 hr 09/24/22 09/24/22 05:38 05:38 WBC 9.1 RBC 3.55 L Hgb 10.2 L Hct 31.3 L MCV 88.2 D MCH 28.7 MCHC 32.6 RDW 14.9 H Plt Count 335 MPV 9.0 Immature Gran % (Auto) 0.4 Neut % (Auto) 88.5 H Lymph % (Auto) 6.6 L Terry % (Auto) 4.0 Eos % (Auto) 0.3 Baso % (Auto) 0.2 Lymph # (Auto) 0.60 L Terry # (Auto) 0.4 Eos # (Auto) 0.0 Baso # (Auto) 0.0 Abs Immat Gran (auto) 0.04 H Absolute Neuts (auto) 8.0 H Absolute Nucleated RBC 0.0 Nucleated RBC % 0.0 Sodium 135 L Potassium 3.5 Chloride 104 Carbon Dioxide 25 Anion Gap 6 L BUN 6 L Creatinine 0.70 Estim Creat Clear Calc 92 Estimated GFR > 60 Glucose 90 Calcium 8.4 Magnesium
--- NOTE | 2022-09-24 11:45 | PM.IMPN ---
Progress Note: A&P Assessment and Plan (1) Diverticulitis: Code(s): K57.92 - Diverticulitis of intestine, part unspecified, without perforation or abscess without bleeding Status: Acute Assessment and Plan: ?CT of the abdomen and pelvis shows inflammatory process in the lower left quadrant compatible with acute sigmoid diverticulitis with micro perforation small bubbles of free air and inflammatory changes ?continue IV Zosyn for now ?general surgery consult ?Pain medications on board Add Ibuprofen IV scheduled ?IV fluids, changed to KCL, stopped at this time ?NPO for now (2) Abdominal pain: Code(s): R10.9 - Unspecified abdominal pain Status: Acute Assessment and Plan: Likely secondary to diverticulitis Supportive care pain medications available Start clear liquids Seems to be better (3) Hypertension: Code(s): I10 - Essential (primary) hypertension Status: Acute Assessment and Plan: ?blood pressure slightly high at 149/86 ?on no home medications ?continue trend ?most likely elevated due to patient's pain and diverticulitis (4) Hypokalemia: Code(s): E87.6 - Hypokalemia Status: Acute Assessment and Plan: K is 3.5 Change IV fluids to have potassium in it trend potassium Replace as indicated Stop fluids at this point Time Spent With Patient Time: 48 minutes Subjective Date/time seen: 09/24/22 114 Interval history: 09/24/22 114 Patient is really not happy. She is stating that she is not feeling good. She also stated that she is having a burning sensation throughout her body. She stated that she is in extreme pain. She denies any chest pain, shortness of breath, nausea, vomiting, diarrhea, constipation, weakness or fatigue. She did state that she was able to sit in a chair, and she also stated that she had a BM this morning. Will stop the potassium as this is more than likely the cause for the burning and pain. Will also give her a dose of Reglan. 09/23/22 1030 Patient is doing ok. She is still complaining of 10/10 pain. She also stated that she wanted to take a hot shower. She also wanted something to drink, however, talked to her about getting her pain better controlled before getting anything to eat. She denies any chest pain, shortness of breath, nausea, vomiting, diarrhea, or constipation. She denies having a BM but did say that she is passing gas. 09/22/22 0945 Patient seems to be ok. She is still having some pretty severe abdominal pain, which she rates a 10/10. She also stated that it starts in the middle then radiates all over. She denies any chest pain, shortness a breath, nausea, vomiting, diarrhea constipation. She stated that she does feel very weak. 09/22/22? 02:46 47-year-old female with known significant past medical history presents to the emergency room with abdominal pain for the last 2 weeks which has been worse in the last 3 days with nausea and vomiting Review of Systems Review of Systems: All systems reviewed & are unremarkable except as noted in HPI and below Exam Narrative: General: well-nourished, well-appearing 47-year-old female, laying in bed, comfortable, NARD Neuro: awake, alert and oriented x4, speech clear, no focal neuro deficits noted HEENMT: normocephalic, atraumatic, EOMI, sclerae anicteric, moist oral mucosa Respiratory: Clear to auscultation bilaterally without crackles, rhonchi or wheezes, nonlabored breathing Cardio: regular rate, regular rhythm with S1-S2 Abdomen: distended, normoactive bowel sounds, soft, tender to palpation Extremities: no edema, erythema, or tenderness to palpation, DP pulses 2+ bilaterally Skin: no rashes or lesions, warm and dry Psych: appropriate mood and affect, judgment and insight intact Objective Data Vital Signs Vital Signs: Vital Signs - 24 hr 09/23/22 14
[2022-09-24] MEDS: METOCLOPRAMIDE HCL INJ 10 MG/2 ML VIAL IV PUSH (12:07)
[2022-09-24] MEDS: LIDOCAINE 5% PATCH 1 PATCH TRANSDERM (12:07)
[2022-09-24] MEDS: KETOROLAC 15 MG/ML VIAL (*BKC) IV PUSH ×2 (13:03→21:44)
[2022-09-24 13:47] VITALS: BP 150/78; PULSE 71; RESP 16; TEMP 36.8; O2SAT 99
[2022-09-24 22:00] VITALS: BP 167/93; PULSE 84; RESP 18; TEMP 36.6; O2SAT 100
[2022-09-25 06:00] VITALS: BP 152/78; PULSE 75; RESP 18; TEMP 36.6; O2SAT 100
[2022-09-25] MEDS: KETOROLAC 15 MG/ML VIAL (*BKC) IV PUSH ×3 (06:04→21:26)
[2022-09-25] MEDS: ONDANSETRON INJ 4 MG/2 ML VIAL IV PUSH (06:06)
[2022-09-25 06:51] LABS: Hematocrit 31.2 % (37.0-47.0); Hemoglobin 10.4 g/dL (12.0-15.0); Mean Corpuscular HGB Conc 33.3 g/dl (32-36); Mean Corpuscular Hemoglobin 28.3 pg (26-34); Mean Corpuscular Volume 84.8 fl (80-100); Mean Platelet Volume 8.9 fl (7.4-10.4); Platelet Count Result 385 k/mm3 (150-375); Red Blood Count 3.68 M/mm3 (4.2-5.4); Red Cell Distribution Width 14.6 % (11.5-14.5); White Blood Count 10.6 K/mm3 (4.5-10.0)
[2022-09-25 07:11] LABS: Anion Gap 9 mmol/L (8-16); Blood Urea Nitrogen 4 mg/dL (7-17); Calcium 8.6 mg/dL (8.4-10.2); Carbon Dioxide 26 mmol/L (22-30); Chloride 102 mmol/L (98-107); Estimated CRCL calculation 92 ml/min; Estimated Glomerular Filt Rate > 60; Glucose 100 mg/dL (65-110); Sodium 137 mmol/L (137-145)
[2022-09-25] MEDS: HYDROmorphone HCL INJ (*CRX) 1 MG/ML SYR IV PUSH ×4 (07:15→23:05)
[2022-09-25 07:28] LABS: CRP 25.2 mg/dL (<1.0)
--- NOTE | 2022-09-25 09:53 | PM.PNGS ---
Progress Note: A&P Assessment and Plan (1) Diverticulitis of intestine with perforation without abscess: Code(s): K57.80 - Diverticulitis of intestine, part unspecified, with perforation and abscess without bleeding Status: Acute Assessment and Plan: exam improved, advance to low fiber diet, encourage OOB/IS Subjective Subjective Date/Time Seen: 09/25/22 09:53 feels better, abd pain less severe, liu clears, very anxious about IV sticks Review of Systems Review of Systems: All systems reviewed & are unremarkable except as noted in HPI and below Exam Const: General: cooperative, comfortable and no acute distress Resp: Auscultation: clear to auscultation bilaterally Cardio: Rate: regular rate Rhythm: regular rhythm GI: Inspection: normal to inspection and non-distended GI Palp: Yes abdominal tenderness, Yes Soft to palpation, Yes Tenderness to palpation present (GI), No Guarding due to palpation present (GI) and No Rigid due to palpation Objective Data Vital Signs Vital Signs: Vital Signs - 24 hr 09/24/22 13:47 09/24/22 22:00 09/25/22 06:00 Temperature 36.8 C 36.6 C 36.6 C Pulse Rate 71 84 75 Respiratory Rate 16 18 18 Blood Pressure 150/78 H 167/93 H 152/78 H Pulse Oximetry 99 100 100 Intake/Output Intake/Output: Intake & Output 09/22/22 09/23/22 09/24/22 09/25/22 23:59 23:59 23:59 23:59 Intake Total 3400 855 2120 50 Output Total 600 0729 877 7055 Balance 2800 -495 1820 -1100 Meds/Results Medications: Active Medications Generic Name Dose Route Start Last Admin Trade Name Freq PRN Reason Stop Dose Admin Acetaminophen 1,000 mg 09/24/22 12:00 Acetaminophen 500 Mg Tablet PO Q6H PRN Mild Pain (1-3) or Fever Enoxaparin Sodium 40 mg 09/23/22 09:00 09/24/22 08:08 Enoxaparin 40 Mg/0.4 Ml Syringe SUB-Q 40 mg DAILY MICHOACANO Administration Hydromorphone HCl 1 mg 09/22/22 11:32 09/25/22 07:15 Hydromorphone Hcl Inj (*Crx) 1 Mg/Ml Syr IV PUSH 1 mg Q2H PRN Administration Pain Rated 7-10 Hydromorphone HCl 0.5 mg 09/22/22 11:28 09/22/22 22:00 Hydromorphone Hcl Inj (*Crx) 1 Mg/Ml Syr IV PUSH 0.5 mg Q2H PRN Administration Pain Rated 4-6 Piperacillin/Tazobactam/Dextrose 3.375 gm in 50 mls @ 100 mls/hr 09/22/22 09:00 09/25/22 03:43 Zosyn 3.375 Gm/D5w 50ml Pm IVPB Infused Q6H MICHOACANO Infusion Ketorolac Tromethamine 15 mg 09/24/22 17:01 09/25/22 06:04 Ketorolac 15 Mg/Ml Vial (*Bkc) IV PUSH 15 mg Q6H PRN Administration Breakthrough Pain Lidocaine 1 patch 09/24/22 12:00 09/24/22 12:07 Lidocaine 5% Patch TRANSDERM 1 patch DAILY MICHOACANO Administration Ondansetron HCl 4 mg 09/23/22 19:59 09/25/22 06:06 Ondansetron Inj 4 Mg/2 Ml Vial IV PUSH 4 mg Q6H PRN Administration Nausea And Vomiting Radiology Results: ITS Impressions Abdomen/Pelvis CT 09/22/22 05:53 Impression: Inflammatory process in the left lower quadrant, most compatible with acute sigmoid diverticulitis with microperforation and small bubbles of free air, and surrounding inflammatory changes. Probable secondary, reactive wall thickening of adjacent small bowel loops. Primary small bowel enteritis felt to be less likely. No abscess evident at this time. Labs Labs: Laboratory Results - last 24 hr 09/25/22 09/25/22 05:57 05:57 WBC 10.6 H RBC 3.68 L Hgb 10.4 L Hct 31.2 L MCV 84.8 MCH 28.3 MCHC 33.3 RDW 14.6 H Plt Count 385 H MPV 8.9 Sodium 137 Potassium 3.0 L Chloride 102 Carbon Dioxide 26 Anion Gap 9 BUN 4 L Creatinine 0.70 Estim Creat Clear Calc 92 Estimated GFR > 60 Glucose 100 Calcium 8.6 C-Reactive Protein 25.2 H
[2022-09-25] MEDS: LIDOCAINE 5% PATCH 1 PATCH TRANSDERM (10:08)
[2022-09-25] MEDS: ENOXAPARIN 40 MG/0.4 ML SYRINGE SUB-Q (10:08)
--- NOTE | 2022-09-25 12:45 | PM.IMPN ---
Progress Note: A&P Assessment and Plan (1) Diverticulitis: Code(s): K57.92 - Diverticulitis of intestine, part unspecified, without perforation or abscess without bleeding Status: Acute Assessment and Plan: ?CT of the abdomen and pelvis shows inflammatory process in the lower left quadrant compatible with acute sigmoid diverticulitis with micro perforation small bubbles of free air and inflammatory changes ?continue IV Zosyn for now ?general surgery consult ?Pain medications on board Toradol added x 3 doses ?IV fluids, changed to KCL, stopped at this time ?Advanced to low fiber (2) Abdominal pain: Code(s): R10.9 - Unspecified abdominal pain Status: Acute Assessment and Plan: Likely secondary to diverticulitis Supportive care pain medications available Advanced to clear liquids Seems to be better (3) Hypertension: Code(s): I10 - Essential (primary) hypertension Status: Acute Assessment and Plan: ?blood pressure slightly high at 152/78 ?on no home medications ?continue trend ?most likely elevated due to patient's pain and diverticulitis (4) Hypokalemia: Code(s): E87.6 - Hypokalemia Status: Acute Assessment and Plan: K is 3.0 will try to replete with oral potassium 80mcq PO once trend potassium Replace as indicated Stop fluids at this point Time Spent With Patient Time: 52 minutes Time with patient: Greater than 35 minutes Subjective Date/time seen: 09/25/22 1245 Interval history: 09/25/22 1245 Patient did have kind of An anxious Spell. Patient gets very anxious when they come to draw her blood. Patient stated that they were unable to get it in the are hurting her. Will hold all lab work at this time. She does still complain of some abdominal pain and is really skeptical about advancing her diet. She denies any chest pain, shortness a breath, weakness or fatigue. 09/24/22 1145 Patient is really not happy. She is stating that she is not feeling good. She also stated that she is having a burning sensation throughout her body. She stated that she is in extreme pain. She denies any chest pain, shortness of breath, nausea, vomiting, diarrhea, constipation, weakness or fatigue. She did state that she was able to sit in a chair, and she also stated that she had a BM this morning. Will stop the potassium as this is more than likely the cause for the burning and pain. Will also give her a dose of Reglan. 09/23/22 1030 Patient is doing ok. She is still complaining of 10/10 pain. She also stated that she wanted to take a hot shower. She also wanted something to drink, however, talked to her about getting her pain better controlled before getting anything to eat. She denies any chest pain, shortness of breath, nausea, vomiting, diarrhea, or constipation. She denies having a BM but did say that she is passing gas. 09/22/22 0945 Patient seems to be ok. She is still having some pretty severe abdominal pain, which she rates a 10/10. She also stated that it starts in the middle then radiates all over. She denies any chest pain, shortness a breath, nausea, vomiting, diarrhea constipation. She stated that she does feel very weak. 09/22/22? 02:46 47-year-old female with known significant past medical history presents to the emergency room with abdominal pain for the last 2 weeks which has been worse in the last 3 days with nausea and vomiting Review of Systems Review of Systems: All systems reviewed & are unremarkable except as noted in HPI and below Exam Narrative: General: well-nourished, well-appearing 47-year-old female, laying in bed, comfortable, NARD Neuro: awake, alert and oriented x4, speech clear, no focal neuro deficits noted HEENMT: normocephalic, atraumatic, EOMI, sclerae anicteric, moist oral mucosa Respiratory: Clear to auscu
[2022-09-25 14:00] VITALS: BP 162/86; PULSE 82; RESP 20; TEMP 36.6; O2SAT 100
--- NOTE | 2022-09-25 20:02 | PC.NURSE ---
Pt stated pain 8/. Dilaudid and toradol had already been given. Called [employer]CHNICIAN requesting breakthrough dose for pt, as she was stating increased pain from attempting eating solid food. When the one time 0.5mg dilaudid IVP was offered to pt, she stated she wanted to wait to get a shower. This RN offered a shower, but pt stated that she wanted to finish watching her movie. This RN non-administered the one time breakthrough dose at shift change, as pt still not ready and has a PRN IVP dilaudid dose available. PO K pt refused to take at the time, as she said that she would take later. Left dose available for night RN to give.
[2022-09-25 22:00] VITALS: BP 131/74; PULSE 88; RESP 18; TEMP 36.7; O2SAT 100
[2022-09-25] MEDS: POTASSIUM CHLORIDE INJ 40 MEQ in SODIUM CHLORIDE 0.9% IV 500 ML 130 MEQ IVPB (22:05)
[2022-09-26] MEDS: ONDANSETRON INJ 4 MG/2 ML VIAL IV PUSH (02:11)
[2022-09-26] MEDS: HYDROmorphone HCL INJ (*CRX) 1 MG/ML SYR IV PUSH ×6 (02:42→21:49)
[2022-09-26 06:00] VITALS: BP 132/71; PULSE 104; RESP 18; TEMP 37.2; O2SAT 99
--- NOTE | 2022-09-26 09:25 | PM.PNGS ---
Progress Note: A&P Assessment and Plan (1) Diverticulitis of intestine with perforation without abscess: Code(s): K57.80 - Diverticulitis of intestine, part unspecified, with perforation and abscess without bleeding Status: Acute Assessment and Plan: exam still largely benign, will back down to clears, cont IV abx, repeat CT Subjective Subjective Date/Time Seen: 09/26/22 09:25 increased pain overnight after eating chicken, episode of emesis Review of Systems Review of Systems: All systems reviewed & are unremarkable except as noted in HPI and below Exam Const: General: cooperative, no acute distress and uncomfortable Resp: Auscultation: clear to auscultation bilaterally Cardio: Rate: regular rate Rhythm: regular rhythm GI: Inspection: normal to inspection and non-distended GI Palp: Yes abdominal tenderness, Yes Soft to palpation, Yes Tenderness to palpation present (GI), No Guarding due to palpation present (GI) and No Rigid due to palpation Objective Data Vital Signs Vital Signs: Vital Signs - 24 hr 09/25/22 14:00 09/25/22 20:00 09/25/22 22:00 Temperature 36.6 C 36.7 C Pulse Rate 82 88 Respiratory Rate 20 18 Blood Pressure 162/86 H 131/74 Pulse Oximetry 100 100 Oxygen Delivery Room Air 09/26/22 06:00 Temperature 37.2 C Pulse Rate 104 H Respiratory Rate 18 Blood Pressure 132/71 Pulse Oximetry 99 Oxygen Delivery Intake/Output Intake/Output: Intake & Output 09/23/22 09/24/22 09/25/22 09/26/22 23:59 23:59 23:59 23:59 Intake Total 855 2120 2360 950 Output Total 5127 500 7631 700 Balance -495 1820 260 250 Meds/Results Medications: Active Medications Generic Name Dose Route Start Last Admin Trade Name Freq PRN Reason Stop Dose Admin Acetaminophen 1,000 mg 09/24/22 12:00 Acetaminophen 500 Mg Tablet PO Q6H PRN Mild Pain (1-3) or Fever Enoxaparin Sodium 40 mg 09/23/22 09:00 09/25/22 10:08 Enoxaparin 40 Mg/0.4 Ml Syringe SUB-Q 40 mg DAILY MICHOACANO Administration Hydromorphone HCl 1 mg 09/25/22 12:05 09/26/22 06:12 Hydromorphone Hcl Inj (*Crx) 1 Mg/Ml Syr IV PUSH 1 mg Q4H PRN Administration Pain Rated 7-10 Hydromorphone HCl 0.5 mg 09/26/22 08:01 Hydromorphone Hcl Inj (*Crx) 1 Mg/Ml Syr IV PUSH Q4H PRN Pain Rated 4-6 Piperacillin/Tazobactam/Dextrose 3.375 gm in 50 mls @ 100 mls/hr 09/22/22 09:00 09/26/22 02:44 Zosyn 3.375 Gm/D5w 50ml Pm IVPB 100 mls/hr Q6H MICHOACANO Administration Ketorolac Tromethamine 15 mg 09/25/22 21:00 09/25/22 21:26 Ketorolac 15 Mg/Ml Vial (*Bkc) IV PUSH 15 mg Q6H PRN Administration Breakthrough Pain Lidocaine 1 patch 09/24/22 12:00 09/25/22 10:08 Lidocaine 5% Patch TRANSDERM 1 patch DAILY MICHOACANO Administration Ondansetron HCl 4 mg 09/23/22 19:59 09/26/22 02:11 Ondansetron Inj 4 Mg/2 Ml Vial IV PUSH 4 mg Q6H PRN Administration Nausea And Vomiting Radiology Results: ITS Impressions Abdomen/Pelvis CT 09/22/22 05:53 Impression: Inflammatory process in the left lower quadrant, most compatible with acute sigmoid diverticulitis with microperforation and small bubbles of free air, and surrounding inflammatory changes. Probable secondary, reactive wall thickening of adjacent small bowel loops. Primary small bowel enteritis felt to be less likely. No abscess evident at this time.
[2022-09-26] MEDS: KETOROLAC 15 MG/ML VIAL (*BKC) IV PUSH (09:45)
--- NOTE | 2022-09-26 11:00 | PM.IMPN ---
Progress Note: A&P Assessment and Plan (1) Diverticulitis: Code(s): K57.92 - Diverticulitis of intestine, part unspecified, without perforation or abscess without bleeding Status: Acute Assessment and Plan: ?CT of the abdomen and pelvis shows inflammatory process in the lower left quadrant compatible with acute sigmoid diverticulitis with micro perforation small bubbles of free air and inflammatory changes ?continue IV Zosyn for now ?general surgery consult ?Pain medications on board Toradol added x 3 doses ?IV fluids, changed to KCL, stopped at this time ?Advanced to low fiber Added dicyclomine to help with the abdominal spasms (2) Abdominal pain: Code(s): R10.9 - Unspecified abdominal pain Status: Acute Assessment and Plan: Likely secondary to diverticulitis Supportive care pain medications available Advanced to clear liquids Gotten worse complaining of abdominal spasms Added dicyclomine (3) Hypertension: Code(s): I10 - Essential (primary) hypertension Status: Acute Assessment and Plan: ?blood pressure slightly high at 132/71 ?on no home medications ?continue trend ?most likely elevated due to patient's pain and diverticulitis (4) Hypokalemia: Code(s): E87.6 - Hypokalemia Status: Acute Assessment and Plan: K is 3.0, will need to be rechecked in the am will try to replete with oral potassium trend potassium Replace as indicated Stop fluids at this point Time Spent With Patient Time: 48 minutes Time with patient: Greater than 35 minutes Subjective Date/time seen: 09/26/22 12:38 Interval history: 09/25/22 1245 Patient did have kind of An anxious Spell. Patient gets very anxious when they come to draw her blood. Patient stated that they were unable to get it in the are hurting her. Will hold all lab work at this time. She does still complain of some abdominal pain and is really skeptical about advancing her diet. She denies any chest pain, shortness a breath, weakness or fatigue. 09/24/22 1145 Patient is really not happy. She is stating that she is not feeling good. She also stated that she is having a burning sensation throughout her body. She stated that she is in extreme pain. She denies any chest pain, shortness of breath, nausea, vomiting, diarrhea, constipation, weakness or fatigue. She did state that she was able to sit in a chair, and she also stated that she had a BM this morning. Will stop the potassium as this is more than likely the cause for the burning and pain. Will also give her a dose of Reglan. 09/23/22 1030 Patient is doing ok. She is still complaining of 10/10 pain. She also stated that she wanted to take a hot shower. She also wanted something to drink, however, talked to her about getting her pain better controlled before getting anything to eat. She denies any chest pain, shortness of breath, nausea, vomiting, diarrhea, or constipation. She denies having a BM but did say that she is passing gas. 09/22/22 0945 Patient seems to be ok. She is still having some pretty severe abdominal pain, which she rates a 10/10. She also stated that it starts in the middle then radiates all over. She denies any chest pain, shortness a breath, nausea, vomiting, diarrhea constipation. She stated that she does feel very weak. 09/22/22? 02:46 47-year-old female with known significant past medical history presents to the emergency room with abdominal pain for the last 2 weeks which has been worse in the last 3 days with nausea and vomiting Review of Systems Review of Systems: All systems reviewed & are unremarkable except as noted in HPI and below Exam Narrative: General: well-nourished, well-appearing 47-year-old female, laying in bed, comfortable, NARD Neuro: awake, alert and oriented x4, speech clear, no focal neuro d
[2022-09-26] MEDS: ENOXAPARIN 40 MG/0.4 ML SYRINGE SUB-Q (11:14)
[2022-09-26] MEDS: METOCLOPRAMIDE HCL INJ 10 MG/2 ML VIAL IV PUSH (13:39)
[2022-09-26 15:35] VITALS: BP 163/89; PULSE 88; RESP 18; TEMP 37.9; O2SAT 99
--- NOTE | 2022-09-26 18:22 | PC.NURSE ---
Pt c/o pain has increased since yesterday. Dr. Saucedo ordered CT abd which showed worsening condition of lower abd. Lewis and Sonny notified; both agree NPO for probably perc drain placement. Pt upset, anxious, very concerned. Pt has had multiple panic attacks over labs. Pt IV becoming more tender. Requested PICC line placement for lab draws and IVPBs for abx. Pt extremely anxious. Consent signed with very tearful and worried patient. Pt significant other in room supporting. 1500 zosyn held until PICC inserted.
[2022-09-26] MEDS: metroNIDAZOLE 500 MG/ISO 100ML 500 MG/100 ML BAG 100 MG IVPB (20:16)
[2022-09-26] MEDS: CENTRAL LINE FLUSH 10 ML IV PUSH (21:59)
[2022-09-26 22:00] VITALS: BP 175/93; PULSE 88; RESP 17; TEMP 37.2; O2SAT 98
[2022-09-27] VITALS (17 sets, daily range): BP systolic 138–180; BP diastolic 84–113; PULSE 78–98; RESP 12–20; TEMP 36.5–36.7; O2SAT 97–100
[2022-09-27] MEDS: metroNIDAZOLE 500 MG/ISO 100ML 500 MG/100 ML BAG 100 MG IVPB ×3 (03:23→20:16)
[2022-09-27] MEDS: HYDROmorphone HCL INJ (*CRX) 1 MG/ML SYR IV PUSH ×6 (03:24→20:15)
[2022-09-27] MEDS: CENTRAL LINE FLUSH 10 ML IV PUSH ×3 (06:38→22:00)
[2022-09-27 09:04] LABS: Hematocrit 30.3 % (37.0-47.0); Hemoglobin 9.8 g/dL (12.0-15.0); Mean Corpuscular HGB Conc 32.3 g/dl (32-36); Mean Corpuscular Hemoglobin 28.4 pg (26-34); Mean Corpuscular Volume 87.8 fl (80-100); Platelet Count Result 385 k/mm3 (150-375); Red Blood Count 3.45 M/mm3 (4.2-5.4); Red Cell Distribution Width 17.2 % (11.5-14.5); White Blood Count 9.4 K/mm3 (4.5-10.0)
[2022-09-27 10:32] LABS: INR 1.2; Prothrombin Time 14.5 Seconds (11.1-14.7)
[2022-09-27 10:33] LABS: Partial Thromboplastin Time 31.4 SECONDS (22.3-36.8)
--- NOTE | 2022-09-27 11:09 | PM.PNGS ---
Progress Note: A&P Assessment and Plan (1) Diverticulitis of intestine with perforation without abscess: Code(s): K57.80 - Diverticulitis of intestine, part unspecified, with perforation and abscess without bleeding Status: Acute Assessment and Plan: Repeat CT scan from yesterday reviewed and discussed with the patient, which showed worsening complicated diverticulitis with now a 4.2 cm pericolonic gas and fluid collection. This appears to be amenable to percutaneous drainage. Her abdominal pain has improved since yesterday. Labs today showed a normal WBC count. She is not tachycardic and is afebrile this morning. Discussed treatment options at this point. We will proceed with percutaneous drainage of the pericolonic abscess in Radiology today. Continue IV Zosyn and Flagyl. Repeat labs tomorrow Plan I have discussed the patient's case and plan of care with Dr. Bae. Subjective Subjective Date/Time Seen: 09/27/22 09:09 Patient reports: no new complaints, feels better, pain is less, tolerating liquids well, flatus, no bowel movement (last BM was yesterday) and afebrile (afebrile today, low grade temp of 100.2F yesterday around 1500) Interval history: Chart reviewed since last seen. She is still having some suprapubic abdominal pain, but reports much improved since yesterday. She is currently NPO for percutaneous drainage. She reports tolerating liquids well yesterday without nausea or vomiting. No other complaints at this time. Review of Systems Review of Systems: All systems reviewed & are unremarkable except as noted in HPI and below Exam Const: General: no acute distress and awake Orientation/consciousness: patient oriented x3 GI: Inspection: non-distended GI Palp: Yes Soft to palpation, Yes Tenderness to palpation present (GI) (across the lower abdomen most focally in the mid lower abdomen), No Guarding due to palpation present (GI) and No Rebound tenderness present Auscultation: normal bowel sounds Objective Data Vital Signs Vital Signs: Vital Signs - 24 hr 09/26/22 15:35 09/26/22 22:00 09/27/22 06:00 Temperature 100.2 F H 98.9 F 97.7 F Pulse Rate 88 88 98 Respiratory Rate 18 17 17 Blood Pressure 163/89 H 175/93 H 138/95 H Pulse Oximetry 99 98 98 Intake/Output Intake/Output: Intake & Output 09/24/22 09/25/22 09/26/22 09/27/22 23:59 23:59 23:59 23:59 Intake Total 2120 2360 2320 50 Output Total 300 2100 700 1400 Balance 8722 640 1573 -1350 Meds/Results Medications: Active Medications Generic Name Dose Route Start Last Admin Trade Name Freq PRN Reason Stop Dose Admin Acetaminophen 1,000 mg 09/24/22 12:00 Acetaminophen 500 Mg Tablet PO Q6H PRN Mild Pain (1-3) or Fever Dicyclomine HCl 20 mg 09/26/22 12:38 Dicyclomine Hcl 10 Mg Capsule PO QID PRN Abdominal Cramping Enoxaparin Sodium 40 mg 09/23/22 09:00 09/26/22 11:14 Enoxaparin 40 Mg/0.4 Ml Syringe SUB-Q 40 mg DAILY MICHOACANO Administration Hydromorphone HCl 0.5 mg 09/26/22 17:21 Hydromorphone Hcl Inj (*Crx) 1 Mg/Ml Syr IV PUSH Q2H PRN Pain Rated 4-6 Hydromorphone HCl 1 mg 09/26/22 17:21 09/27/22 08:42 Hydromorphone Hcl Inj (*Crx) 1 Mg/Ml Syr IV PUSH 1 mg Q2H PRN Administration Pain Rated 7-10 Piperacillin/Tazobactam/Dextrose 3.375 gm in 50 mls @ 100 mls/hr 09/22/22 09:00 09/27/22 08:24 Zosyn 3.375 Gm/D5w 50ml Pm IVPB 100 mls/hr Q6H MICHOACANO Administration Metronidazole 500 mg in 100 mls @ 100 mls/hr 09/26/22 20:00 09/27/22 03:23 Flagyl 500 Mg/Iso Soln 100 Ml IVPB 100 mls/hr Q8H MICHOACANO Administration Lidocaine 1 patch 09/24/22 12:00 09/26/22 16:21 Lidocaine 5% Patch TRANSDERM Not Given DAILY MICHOACANO Ondansetron HCl 4 mg 09/23/22 19:59 09/26/22 02:11 Ondansetron Inj 4 Mg/2 Ml Vial IV PUSH 4 mg Q6H PRN Administration Nausea And Vomiting Sodium Chloride 10 ml 09/26/22 22:00 09/27/22 06:38 Central Line Flu
[2022-09-27 11:45] LABS: Anion Gap 5 mmol/L (8-16); Blood Urea Nitrogen 4 mg/dL (7-17); Calcium 8.7 mg/dL (8.4-10.2); Carbon Dioxide 30 mmol/L (22-30); Chloride 104 mmol/L (98-107); Estimated CRCL calculation 106 ml/min; Estimated Glomerular Filt Rate > 60; Glucose 97 mg/dL (65-110); Potassium 5.2 mmol/L (3.4-5.0); Sodium 139 mmol/L (137-145)
--- NOTE | 2022-09-27 12:15 | P.PNIM_ITS ---
Progress Note: A&P Assessment and Plan (1) Diverticulitis: Code(s): K57.92 - Diverticulitis of intestine, part unspecified, without perforation or abscess without bleeding Status: Acute Assessment and Plan: Patient presented to the ED on 09/21/2022 for abdominal pain. Patient was found to have diverticulitis on CT abdomen pelvis. * CT of the abdomen and pelvis shows inflammatory process in the lower left qu adrant compatible with acute sigmoid diverticulitis with micro perforation small bubbles of free air and inflammatory changes * Patient receiving IV Zosyn and IV Flagyl * General surgery consulted and appreciate recommendations. * Pain medications on board. * Added dicyclomine to help with the abdominal spasms. * Patient undergoing drain placement on 09/27/2022 due to worsening diverticulitis on repeat CT scan. (2) Abdominal pain: Code(s): R10.9 - Unspecified abdominal pain Status: Acute Assessment and Plan: * Likely secondary to diverticulitis * Supportive care * pain medications available * Advanced diet as tolerated (3) Hypertension: Code(s): I10 - Essential (primary) hypertension Status: Acute Assessment and Plan: * ?blood pressure slightly high at 132/71 * ?on no home medications * monitor * ?most likely elevated due to patient's pain and diverticulitis (4) Hypokalemia: Code(s): E87.6 - Hypokalemia Status: Acute Assessment and Plan: * Potassium replenished as needed. * stable. Time Spent With Patient Time with patient: Greater than 35 minutes Subjective Date/time seen: 09/27/22 12:15 Interval history: Patient sitting in bed relaxing when I walked into the room. Patient having some anxiety about drain placement today. Discussed with patient that this should help with her pain significantly. Patient still having abdominal pain and diarrhea every once in a while although she has not had it today. Patient denies blood in the stool. Patient denies nausea, vomiting, fever, shortness of breath and chest pain. Review of Systems Review of Systems: All systems reviewed & are unremarkable except as noted in HPI and below Exam Narrative: GENERAL: Comfortable, no acute distress HENMT: moist mucous membranes EYES: EOM intact b/l NECK: no lymphadenopathy RESPIRATORY: clear to auscultation CARDIO: RRR GI: Hyperactive bowel sounds, mild abdominal distension, tenderness to palpation in the lower abdomen bilaterally, soft SKIN: no rashes EXTREMITIES: no edema, redness or tenderness Objective Data Vital Signs Vital Signs: Vital Signs - 24 hr 09/26/22 15:35 09/26/22 22:00 09/27/22 06:00 Temperature 100.2 F H 98.9 F 97.7 F Pulse Rate 88 88 98 Respiratory Rate 18 17 17 Blood Pressure 163/89 H 175/93 H 138/95 H Pulse Oximetry 99 98 98 Intake/Output Intake/Output: Intake & Output 09/24/22 09/25/22 09/26/22 09/27/22 23:59 23:59 23:59 23:59 Intake Total 2120 2360 2320 150 Output Total 300 2100 700 1400 Balance 0442 349 0909 -1250 Meds/Results Medications: Active Medications Generic Name Dose Route S
--- NOTE | 2022-09-27 12:15 | PM.IMPN ---
Progress Note: A&P Assessment and Plan (1) Diverticulitis: Code(s): K57.92 - Diverticulitis of intestine, part unspecified, without perforation or abscess without bleeding Status: Acute Assessment and Plan: Patient presented to the ED on 09/21/2022 for abdominal pain. Patient was found to have diverticulitis on CT abdomen pelvis. CT of the abdomen and pelvis shows inflammatory process in the lower left quadrant compatible with acute sigmoid diverticulitis with micro perforation small bubbles of free air and inflammatory changes Patient receiving IV Zosyn and IV Flagyl General surgery consulted and appreciate recommendations. Pain medications on board. Added dicyclomine to help with the abdominal spasms. Patient undergoing drain placement on 09/27/2022 due to worsening diverticulitis on repeat CT scan. (2) Abdominal pain: Code(s): R10.9 - Unspecified abdominal pain Status: Acute Assessment and Plan: Likely secondary to diverticulitis Supportive care pain medications available Advanced diet as tolerated (3) Hypertension: Code(s): I10 - Essential (primary) hypertension Status: Acute Assessment and Plan: ?blood pressure slightly high at 132/71 ?on no home medications monitor ?most likely elevated due to patient's pain and diverticulitis (4) Hypokalemia: Code(s): E87.6 - Hypokalemia Status: Acute Assessment and Plan: Potassium replenished as needed. stable. Time Spent With Patient Time with patient: Greater than 35 minutes Subjective Date/time seen: 09/27/22 12:15 Interval history: Patient sitting in bed relaxing when I walked into the room. Patient having some anxiety about drain placement today. Discussed with patient that this should help with her pain significantly. Patient still having abdominal pain and diarrhea every once in a while although she has not had it today. Patient denies blood in the stool. Patient denies nausea, vomiting, fever, shortness of breath and chest pain. Review of Systems Review of Systems: All systems reviewed & are unremarkable except as noted in HPI and below Exam Narrative: GENERAL: Comfortable, no acute distress HENMT: moist mucous membranes EYES: EOM intact b/l NECK: no lymphadenopathy RESPIRATORY: clear to auscultation CARDIO: RRR GI: Hyperactive bowel sounds, mild abdominal distension, tenderness to palpation in the lower abdomen bilaterally, soft SKIN: no rashes EXTREMITIES: no edema, redness or tenderness Objective Data Vital Signs Vital Signs: Vital Signs - 24 hr 09/26/22 15:35 09/26/22 22:00 09/27/22 06:00 Temperature 100.2 F H 98.9 F 97.7 F Pulse Rate 88 88 98 Respiratory Rate 18 17 17 Blood Pressure 163/89 H 175/93 H 138/95 H Pulse Oximetry 99 98 98 Intake/Output Intake/Output: Intake & Output 09/24/22 09/25/22 09/26/22 09/27/22 23:59 23:59 23:59 23:59 Intake Total 2120 2360 2320 150 Output Total 300 2100 700 1400 Balance 8258 152 2753 -1250 Meds/Results Medications: Active Medications Generic Name Dose Route Start Last Admin Trade Name Freq PRN Reason Stop Dose Admin Acetaminophen 1,000 mg 09/24/22 12:00 Acetaminophen 500 Mg Tablet PO Q6H PRN Mild Pain (1-3) or Fever Dicyclomine HCl 20 mg 09/26/22 12:38 Dicyclomine Hcl 10 Mg Capsule PO QID PRN Abdominal Cramping Enoxaparin Sodium 40 mg 09/23/22 09:00 09/26/22 11:14 Enoxaparin 40 Mg/0.4 Ml Syringe SUB-Q 40 mg DAILY MICHOACANO Administration Hydromorphone HCl 0.5 mg 09/26/22 17:21 Hydromorphone Hcl Inj (*Crx) 1 Mg/Ml Syr IV PUSH Q2H PRN Pain Rated 4-6 Hydromorphone HCl 1 mg 09/26/22 17:21 09/27/22 11:15 Hydromorphone Hcl Inj (*Crx) 1 Mg/Ml Syr IV PUSH 1 mg Q2H PRN Administration Pain Rated 7-10 Piperacillin/Tazobactam/Dextrose 3.375 gm in 50 mls @ 100 mls/hr
--- NOTE | 2022-09-27 13:50 | WPDMODSED ---
Moderate Sedation Note-Pt Data Patient Data Diagnosis: Abdominal abscess. Present Complaint: Abdominal abscess. Procedure to be performed/Plan: CT-guided abdominal abscess drainage. Allergies Allergy/AdvReac Type Severity Reaction Status Date / Time No Known Allergies Allergy Verified 09/21/22 20:11 Home Medications Medication Instructions Recorded Confirmed Type No Home Medications 09/22/22 09/22/22 History Current Medications: Active Medications Acetaminophen (Acetaminophen 500 Mg Tablet) 1,000 mg PO Q6H PRN PRN Reason: Mild Pain (1-3) or Fever Dicyclomine HCl (Dicyclomine Hcl 10 Mg Capsule) 20 mg PO QID PRN PRN Reason: Abdominal Cramping Enoxaparin Sodium (Enoxaparin 40 Mg/0.4 Ml Syringe) 40 mg SUB-Q DAILY [facility] Last Admin: 09/26/22 11:14 Dose: 40 mg Hydromorphone HCl (Hydromorphone Hcl Inj (*Crx) 1 Mg/Ml Syr) 0.5 mg IV PUSH Q2H PRN PRN Reason: Pain Rated 4-6 Hydromorphone HCl (Hydromorphone Hcl Inj (*Crx) 1 Mg/Ml Syr) 1 mg IV PUSH Q2H PRN PRN Reason: Pain Rated 7-10 Last Admin: 09/27/22 11:15 Dose: 1 mg Piperacillin/Tazobactam/Dextrose (Zosyn 3.375 Gm/D5w 50ml Pm) 3.375 gm in 50 mls @ 100 mls/hr IVPB Q6H [facility] Last Admin: 09/27/22 08:24 Dose: 100 mls/hr Metronidazole (Flagyl 500 Mg/Iso Soln 100 Ml) 500 mg in 100 mls @ 100 mls/hr IVPB Q8H [facility] Last Admin: 09/27/22 11:15 Dose: 100 mls/hr Lidocaine (Lidocaine 5% Patch) 1 patch TRANSDERM DAILY [facility] Last Admin: 09/26/22 16:21 Dose: Not Given Ondansetron HCl (Ondansetron Inj 4 Mg/2 Ml Vial) 4 mg IV PUSH Q6H PRN PRN Reason: Nausea And Vomiting Last Admin: 09/26/22 02:11 Dose: 4 mg Sodium Chloride (Central Line Flush) 10 ml IV PUSH Q8HR [facility] Last Admin: 09/27/22 06:38 Dose: 10 ml Sodium Chloride (Central Line Flush) 10 ml IV PUSH PRN PRN PRN Reason: with TPN bag changes Sodium Chloride (Central Line Flush) 20 ml IV PUSH PRN PRN PRN Reason: after blood draws Sedation/Anesthesia: No previous sedation/anesthesia problems (including family history). [facility] Past Medical History Medical History No significant past medical history Surgical History Surgical History History of ankle surgery History of laparoscopic cholecystectomy History of tubal ligation Social History Social History Smoking status: Never smoker Second hand tobacco smoke exposure: No Alcohol intake: current Substance use: former Substance use type: marijuana Lack of Transportation: No Lack of Food: Never True Current Housing: I Have Housing Concerned About Future Housing: No Difficulty Paying Gas/Electric Bills: No Difficulty Paying for Meds: No Currently Unemployed: No Education: High School Diploma/GED Difficulty w/ Childcare or Family Care: No Occupation/Education: occupation Additional occupation/education comments: Works for [employer]ination Spiritual care concerns: No Mod Sed Physical Exam Physical Exam Pre Procedural Exam: Normal: Airway, Lungs, Heart Rate and Heart Rhythm and Variation: Abdomen (Tenderness lower abdomen) Hours since solid foods: 12 Hours since liquid intake: 12 Mallampati Classification: class II Internal Medicine - PN: Obj Da Vital Signs Vital Signs: Vital Signs - 24 hr 09/26/22 15:35 09/26/22 22:00 09/27/22 06:00 Temperature 37.9 C H 37.2 C 36.5 C Pulse Rate 88 88 98 Respiratory Rate 18 17 17 Blood Pressure 163/89 H 175/93 H 138/95 H Pulse Oximetry 99 98 98 Intake/Output Intake/Output: Intake & Output 09/24/22 09/25/22 09/26/22 09/27/22 23:59 23:59 23:59 23:59 Intake Total 2120 2360 2320 150 Output Total 300 2100 700 1400 Balance 9984 836 8520 -1250 Meds/Results Medications: Active Medications Generic Name Dose Route Start Last Admin Trade Name Freq PRN Reason Stop Dose Admin Acetaminop
--- NOTE | 2022-09-27 14:37 | SUR.OPER ---
In CT room: 1335 Time Out: 1348 Procedure start time: 1358 Procedure end time: 1425 Out of room: 1437 Pt was NSR per monitor. Moderate sedation given: See VS flowsheet and Moderate Sedation Procedure Order sheet.
[2022-09-27] MEDS: ONDANSETRON INJ 4 MG/2 ML VIAL IV PUSH (14:57)
[2022-09-27] MEDS: KETOROLAC 30 MG/ML VIAL (*BKC) IV PUSH (15:40)
--- NOTE | 2022-09-27 19:35 | PC.NURSE ---
Prior to going to CT for Ct guided perc drain placement, female transport came out to ask if pt was indeed going for procedure. Apparently, when the transporter had asked pt, she didn't understand so pt asked for this RN. According to pt, transporter rolled her eyes, which aggravated pt. Pt then refused to go with that transporter. Requested a different transporter, so current one walked out of the room. This RN did hear pt state that she would beat her skinny ass . Pt went for procedure to CT. When she returned she stated, that she heard and felt everything. She was very upset and angry that she was told she would have sedation. I called CT who stated that she needed to be able to respond to commands. When I told pt, she stated that she is still very angry and in a 16/10 pain. Pt BP also elevated. Treated with IVP dilaudid. Rechecked pt BP and pain still high. Called MD for additional meds. MD ordered toradol but only wanted to monitor BP, as related to pain. Pt then sleeping. Rechecked BP occasionally without disturbing pt. Ran tylenol for pt. Let her know that shift change would be soon, but we would continue to monitor.
[2022-09-28] MEDS: HYDROmorphone HCL INJ (*CRX) 1 MG/ML SYR IV PUSH ×5 (01:24→20:19)
[2022-09-28] MEDS: metroNIDAZOLE 500 MG/ISO 100ML 500 MG/100 ML BAG 100 MG IVPB ×3 (04:25→20:19)
[2022-09-28 04:49] LABS: Hematocrit 26.9 % (37.0-47.0); Hemoglobin 9.1 g/dL (12.0-15.0); Mean Corpuscular HGB Conc 33.8 g/dl (32-36); Mean Corpuscular Hemoglobin 28.6 pg (26-34); Mean Corpuscular Volume 84.6 fl (80-100); Mean Platelet Volume 8.7 fl (7.4-10.4); Platelet Count Result 362 k/mm3 (150-375); Red Blood Count 3.18 M/mm3 (4.2-5.4); Red Cell Distribution Width 15.2 % (11.5-14.5); White Blood Count 8.3 K/mm3 (4.5-10.0)
[2022-09-28 05:06] LABS: Anion Gap 4 mmol/L (8-16); Blood Urea Nitrogen 7 mg/dL (7-17); Calcium 8.1 mg/dL (8.4-10.2); Carbon Dioxide 30 mmol/L (22-30); Chloride 98 mmol/L (98-107); Estimated CRCL calculation 106 ml/min; Estimated Glomerular Filt Rate > 60; Glucose 97 mg/dL (65-110); Potassium 3.9 mmol/L (3.4-5.0); Sodium 132 mmol/L (137-145)
[2022-09-28 05:18] LABS: CRP 21.5 mg/dL (<1.0)
[2022-09-28 06:00] VITALS: BP 155/88; PULSE 82; RESP 18; TEMP 36.4; O2SAT 99
[2022-09-28] MEDS: CENTRAL LINE FLUSH 10 ML IV PUSH ×3 (06:20→20:21)
[2022-09-28] MEDS: ENOXAPARIN 40 MG/0.4 ML SYRINGE SUB-Q (11:01)
--- NOTE | 2022-09-28 13:53 | P.PNIM_ITS ---
Progress Note: A&P Assessment and Plan (1) Diverticulitis: Code(s): K57.92 - Diverticulitis of intestine, part unspecified, without perforation or abscess without bleeding Status: Acute Assessment and Plan: Patient presented to the ED on 09/21/2022 for abdominal pain. Patient was found to have diverticulitis on CT abdomen pelvis. * CT of the abdomen and pelvis shows inflammatory process in the lower left qu adrant compatible with acute sigmoid diverticulitis with micro perforation small bubbles of free air and inflammatory changes * Patient receiving IV Zosyn and IV Flagyl * General surgery consulted and appreciate recommendations. * Pain medications on board. * Added dicyclomine to help with the abdominal spasms. * Patient undergoing drain placement on 09/27/2022 due to worsening diverticulitis on repeat CT scan. 09/28/22 * patient postop day 1 perc drain placement * patient's pain is much better today * General surgery following * cultures pending (2) Abdominal pain: Code(s): R10.9 - Unspecified abdominal pain Status: Acute Assessment and Plan: * Likely secondary to diverticulitis * Supportive care * pain medications available * Advanced diet as tolerated (3) Hypertension: Code(s): I10 - Essential (primary) hypertension Status: Acute Assessment and Plan: * ?on no home medications * monitor * ?most likely elevated due to patient's pain and diverticulitis (4) Hypokalemia: Code(s): E87.6 - Hypokalemia Status: Acute Assessment and Plan: * Potassium replenished as needed. * stable. Time Spent With Patient Time with patient: Greater than 35 minutes Subjective Date/time seen: 09/28/22 13:53 Interval history: Patient postop day 1 percutaneous drain placement. Patient had episode with the LIGHT RAIL SIGNAL TECHNICIAN this morning and she was not happy with health a LIGHT RAIL SIGNAL TECHNICIAN treated her. Due to this patient ran out into the nurse's station and was only wearing a blanket stating that she was very angry with how she has been treated. I personally when in the room and patient was receptive and calm. Spent over 30 minutes in patient's room discussing the incident. Patients pain is much better today. No fever, chest pain, sob, nausea, or vomiting. Review of Systems Review of Systems: All systems reviewed & are unremarkable except as noted in HPI and below Exam Narrative: GENERAL: Comfortable, no acute distress HENMT: moist mucous membranes EYES: EOM intact b/l NECK: no lymphadenopathy RESPIRATORY: clear to auscultation CARDIO: RRR GI: soft, tender, bowel sounds present, proceed to strain placement intact with dry bandages covering insertion site, brown fluid draining into bag. SKIN: no rashes EXTREMITIES: no edema, redness or tenderness Objective Data Vital Signs Vital Signs: Vital Signs - 24 hr 09/27/22 14:30 09/27/22 13:55 09/27/22 14:00 Temperature Pulse Rate 82 81 87 Respiratory Rate 17 17 17 Blood Pressure 173/96 H 165/108 H 165/100 H Pulse Oximetry 97 99 99 Oxygen Delivery Room Air Nasal Cannula Nasal Cannula Oxygen Flow Rate 3 3 09/27/22 14:05 09/27/22 14:10 09/27/22 14:15 Temperature Pulse Rate 87 85 84 Respiratory Rate 20 17 13 Blood Pressure 162/98
--- NOTE | 2022-09-28 13:53 | PM.IMPN ---
Progress Note: A&P Assessment and Plan (1) Diverticulitis: Code(s): K57.92 - Diverticulitis of intestine, part unspecified, without perforation or abscess without bleeding Status: Acute Assessment and Plan: Patient presented to the ED on 09/21/2022 for abdominal pain. Patient was found to have diverticulitis on CT abdomen pelvis. CT of the abdomen and pelvis shows inflammatory process in the lower left quadrant compatible with acute sigmoid diverticulitis with micro perforation small bubbles of free air and inflammatory changes Patient receiving IV Zosyn and IV Flagyl General surgery consulted and appreciate recommendations. Pain medications on board. Added dicyclomine to help with the abdominal spasms. Patient undergoing drain placement on 09/27/2022 due to worsening diverticulitis on repeat CT scan. 09/28/22 patient postop day 1 perc drain placement patient's pain is much better today General surgery following cultures pending (2) Abdominal pain: Code(s): R10.9 - Unspecified abdominal pain Status: Acute Assessment and Plan: Likely secondary to diverticulitis Supportive care pain medications available Advanced diet as tolerated (3) Hypertension: Code(s): I10 - Essential (primary) hypertension Status: Acute Assessment and Plan: ?on no home medications monitor ?most likely elevated due to patient's pain and diverticulitis (4) Hypokalemia: Code(s): E87.6 - Hypokalemia Status: Acute Assessment and Plan: Potassium replenished as needed. stable. Time Spent With Patient Time with patient: Greater than 35 minutes Subjective Date/time seen: 09/28/22 13:53 Interval history: Patient postop day 1 percutaneous drain placement. Patient had episode with the IT APPLICATIONS DEVELOPER this morning and she was not happy with health a IT APPLICATIONS DEVELOPER treated her. Due to this patient ran out into the nurse's station and was only wearing a blanket stating that she was very angry with how she has been treated. I personally when in the room and patient was receptive and calm. Spent over 30 minutes in patient's room discussing the incident. Patients pain is much better today. No fever, chest pain, sob, nausea, or vomiting. Review of Systems Review of Systems: All systems reviewed & are unremarkable except as noted in HPI and below Exam Narrative: GENERAL: Comfortable, no acute distress HENMT: moist mucous membranes EYES: EOM intact b/l NECK: no lymphadenopathy RESPIRATORY: clear to auscultation CARDIO: RRR GI: soft, tender, bowel sounds present, proceed to strain placement intact with dry bandages covering insertion site, brown fluid draining into bag. SKIN: no rashes EXTREMITIES: no edema, redness or tenderness Objective Data Vital Signs Vital Signs: Vital Signs - 24 hr 09/27/22 14:30 09/27/22 13:55 09/27/22 14:00 Temperature Pulse Rate 82 81 87 Respiratory Rate 17 17 17 Blood Pressure 173/96 H 165/108 H 165/100 H Pulse Oximetry 97 99 99 Oxygen Delivery Room Air Nasal Cannula Nasal Cannula Oxygen Flow Rate 3 3 09/27/22 14:05 09/27/22 14:10 09/27/22 14:15 Temperature Pulse Rate 87 85 84 Respiratory Rate 20 17 13 Blood Pressure 162/98 H 161/103 H 165/99 H Pulse Oximetry 98 99 99 Oxygen Delivery Nasal Cannula Nasal Cannula Nasal Cannula Oxygen Flow Rate 3 3 3 09/27/22 14:20 09/27/22 14:20 09/27/22 14:25 Temperature Pulse Rate 83 78 83 Respiratory Rate 12 14 12 Blood Pressure 180/99 H 166/99 H 180/99 H Pulse Oximetry 99 99 97 Oxygen Delivery Nasal Cannula Nasal Cannula Room Air Oxygen Flow Rate 3 3 09/27/22 14:35 09/27/22 15:00 09/27/22 15:15 Temperature 97.7 F Pulse Rate 85 86 Respiratory Rate 17 20 Blood Pressure 178/100 H 180/89 H 179/98 H Pulse Oximetry 98 97 Oxygen Delivery Room Air Oxygen Flow Rate 09/27/22 16:05 09/27/22 17:15 09/27/22 22:00 Temperature
--- NOTE | 2022-09-28 13:54 | PM.PNGS ---
Progress Note: A&P Assessment and Plan (1) Diverticulitis of intestine with perforation without abscess: Code(s): K57.80 - Diverticulitis of intestine, part unspecified, with perforation and abscess without bleeding Status: Acute Assessment and Plan: S/p percutaneous drain placement yesterday, cultures pending. Abdominal pain is improving. WBC remains normal and she is afebrile. Continue to monitor perc drain Continue IV Zosyn and metronidazole Advance to a full liquid diet Plan I have discussed the patient's case and plan of care with Dr. Bae. Subjective Subjective Date/Time Seen: 09/28/22 10:54 Patient reports: no new complaints, feels better, pain is less, tolerating liquids well, flatus, bowel movement and afebrile Interval history: Patient seen this morning and reportedly feeling better again today. Her previous abdominal pain has nearly resolved and she states that she primarily has discomfort and soreness at the area of the perc drain. She is tolerating clear liquids this morning. She also had a large liquid BM this morning. No other complaints at this time. Review of Systems Review of Systems: ROS unchanged Exam Const: General: comfortable and no acute distress Orientation/consciousness: patient oriented x3 GI: Inspection: non-distended and other (perc drain with calloway purulent drainage) GI Palp: Yes Soft to palpation, Yes Tenderness to palpation present (GI) (improved diffuse tenderness, mostly tender now in the mid to left lower abd), No Guarding due to palpation present (GI) and No Rebound tenderness present Auscultation: normal bowel sounds Objective Data Vital Signs Vital Signs: Vital Signs - 24 hr 09/27/22 14:30 09/27/22 13:55 09/27/22 14:00 Temperature Pulse Rate 82 81 87 Respiratory Rate 17 17 17 Blood Pressure 173/96 H 165/108 H 165/100 H Pulse Oximetry 97 99 99 Oxygen Delivery Room Air Nasal Cannula Nasal Cannula Oxygen Flow Rate 3 3 09/27/22 14:05 09/27/22 14:10 09/27/22 14:15 Temperature Pulse Rate 87 85 84 Respiratory Rate 20 17 13 Blood Pressure 162/98 H 161/103 H 165/99 H Pulse Oximetry 98 99 99 Oxygen Delivery Nasal Cannula Nasal Cannula Nasal Cannula Oxygen Flow Rate 3 3 3 09/27/22 14:20 09/27/22 14:20 09/27/22 14:25 Temperature Pulse Rate 83 78 83 Respiratory Rate 12 14 12 Blood Pressure 180/99 H 166/99 H 180/99 H Pulse Oximetry 99 99 97 Oxygen Delivery Nasal Cannula Nasal Cannula Room Air Oxygen Flow Rate 3 3 09/27/22 14:35 09/27/22 15:00 09/27/22 15:15 Temperature 97.7 F Pulse Rate 85 86 Respiratory Rate 17 20 Blood Pressure 178/100 H 180/89 H 179/98 H Pulse Oximetry 98 97 Oxygen Delivery Room Air Oxygen Flow Rate 09/27/22 16:05 09/27/22 17:15 09/27/22 22:00 Temperature 98.1 F Pulse Rate 80 Respiratory Rate 16 Blood Pressure 163/92 H 177/94 H 160/84 H Pulse Oximetry 99 Oxygen Delivery Oxygen Flow Rate 09/28/22 06:00 Temperature 97.6 F Pulse Rate 82 Respiratory Rate 18 Blood Pressure 155/88 H Pulse Oximetry 99 Oxygen Delivery Oxygen Flow Rate Intake/Output Intake/Output: Intake & Output 09/25/22 09/26/22 09/27/22 09/28/22 23:59 23:59 23:59 23:59 Intake Total 2360 2320 550 1150 Output Total 2100 700 1400 700 Balance 260 1620 -850 450 Meds/Results Medications: Active Medications Generic Name Dose Route Start Last Admin Trade Name Freq PRN Reason Stop Dose Admin Acetaminophen 1,000 mg 09/24/22 12:00 Acetaminophen 500 Mg Tablet PO Q6H PRN Mild Pain (1-3) or Fever Dicyclomine HCl 20 mg 09/26/22 12:38 Dicyclomine Hcl 10 Mg Capsule PO QID PRN Abdominal Cramping Enoxaparin Sodium 40 mg 09/23/22 09:00 09/28/22 11:01 Enoxaparin 40 Mg/0.4 Ml Syringe SUB-Q 40 mg DAILY MICHOACANO Administration Hydromorphone HCl 0.5 mg 09/26/22 17:21 Hydromorphone Hcl Inj (*Crx) 1 Mg/Ml Syr IV PUSH Q2H PRN Pain Rated 4-6 Hydr
[2022-09-28 14:00] VITALS: BP 148/82; PULSE 78; RESP 16; TEMP 36.3; O2SAT 99
--- NOTE | 2022-09-28 18:09 | PC.NURSE ---
Pt down to nurses' station approx. 0730, slammed her hand on the counter, voicing concerns over the attitude that her aide gave her and calling for the charge nurse. The aide had let her know that her diet was NPO. We had started giving her clears, but had not been able to officially advance pt diet order. Pt stated that the aide was no longer welcome in her room. She felt that the aide had given her an attitude . The charge and this RN clarified the aide was technically correct, and we were changing her official diet at that moment. Pt still upset with aide, but voiced understanding of diet situation. This RN placed a see RN before entering sign on door to limit pt frustrations. Patient advocate met with pt, as did surgery and hospitalist. Pt has voiced c/o pain throughout day r/t her jumping out of bed and walking to RN station this AM. Have treated with pain medication throughout the day. Will continue to monitor.
[2022-09-28 21:51] VITALS: BP 166/86; PULSE 80; RESP 16; TEMP 36.4; O2SAT 100
[2022-09-29] MEDS: HYDROmorphone HCL INJ (*CRX) 1 MG/ML SYR IV PUSH ×3 (00:01→06:16)
[2022-09-29] MEDS: metroNIDAZOLE 500 MG/ISO 100ML 500 MG/100 ML BAG 100 MG IVPB ×2 (04:22→11:11)
[2022-09-29] MEDS: CENTRAL LINE FLUSH 10 ML IV PUSH (05:37)
[2022-09-29 05:43] LABS: Hematocrit 28.4 % (37.0-47.0); Hemoglobin 9.3 g/dL (12.0-15.0); Mean Corpuscular HGB Conc 32.7 g/dl (32-36); Mean Corpuscular Hemoglobin 28.6 pg (26-34); Mean Corpuscular Volume 87.4 fl (80-100); Mean Platelet Volume 8.9 fl (7.4-10.4); Platelet Count Result 440 k/mm3 (150-375); Red Blood Count 3.25 M/mm3 (4.2-5.4); Red Cell Distribution Width 16.6 % (11.5-14.5); White Blood Count 8.3 K/mm3 (4.5-10.0)
[2022-09-29 06:00] VITALS: BP 178/93; PULSE 77; RESP 16; TEMP 36.4; O2SAT 98
[2022-09-29] MEDS: ENOXAPARIN 40 MG/0.4 ML SYRINGE SUB-Q (08:30)
--- NOTE | 2022-09-29 11:55 | PC.NURSE ---
Pt does not want to take Amlodipine at this time. Education provided. Hospitalist made aware.
--- NOTE | 2022-09-29 14:11 | P.PNIM_ITS ---
Progress Note: A&P Assessment and Plan (1) Diverticulitis: Code(s): K57.92 - Diverticulitis of intestine, part unspecified, without perforation or abscess without bleeding Status: Acute Assessment and Plan: Patient presented to the ED on 09/21/2022 for abdominal pain. Patient was found to have diverticulitis on CT abdomen pelvis. * CT of the abdomen and pelvis shows inflammatory process in the lower left qu adrant compatible with acute sigmoid diverticulitis with micro perforation small bubbles of free air and inflammatory changes * Patient receiving IV Zosyn and IV Flagyl * General surgery consulted and appreciate recommendations. * Pain medications on board. * Added dicyclomine to help with the abdominal spasms. * Patient undergoing drain placement on 09/27/2022 due to worsening diverticulitis on repeat CT scan. 09/28/22 * patient postop day 1 perc drain placement * patient's pain is much better today * General surgery following * cultures pending 09/29/22 * postop day 2 perc drain placement * patient's pain improving try to wean pain medication * cultures pending and no growth to date * attempt to call General surgery to deescalate antibiotics and waiting to hear back * diet advancement as tolerated (2) Abdominal pain: Code(s): R10.9 - Unspecified abdominal pain Status: Acute Assessment and Plan: see above (3) Hypertension: Code(s): I10 - Essential (primary) hypertension Status: Acute Assessment and Plan: * ?on no home medications * monitor * ?most likely elevated due to patient's pain and diverticulitis 09/29/22 * patient has blood pressure has been elevated most of the time during her hospital stay. * Will add 10 mg amlodipine. When discussing this with patient she stated that she will not take this medication as an outpatient. Discussed with her the risks and benefits of uncontrolled hypertension. Patient stated to me that she would have a close follow-up with her primary care provider regarding her high blood pressure. (4) Hypokalemia: Code(s): E87.6 - Hypokalemia Status: Acute Assessment and Plan: * Potassium replenished as needed. * stable. Time Spent With Patient Time with patient: Greater than 35 minutes Subjective Date/time seen: 09/29/22 14:11 Interval history: Patient doing much better today and is a lot more at ease. Patient with minimal pain today. Patient continuing to have diarrhea. Diarrhea could be due to diverticulitis or antibiotics. Patient does have some nausea with the eating but no vomiting. She denies fever, chest pain and shortness of breath. Review of Systems Review of Systems: All systems reviewed & are unremarkable except as noted in HPI and below Exam Narrative: GENERAL: Comfortable, no acute distress HENMT: moist mucous membranes EYES: EOM intact b/l NECK: no lymphadenopathy RESPIRATORY: clear to auscultation CARDIO: RRR GI: soft, tender, bowel sounds present, proceed to strain placement intact with dry bandages covering insertion site, brown fluid draining into bag. SKIN: no rashes EXTREMITIES: no edema, redness or tenderness Objective Data Vital Signs Vital Signs: Vital Signs - 24 hr 09/28/22 21:51 09/29/22 06:00 09/29/22 08:00 Temperature 97.6 F 97.6 F Pulse Rate 80 77 Respiratory Ra
--- NOTE | 2022-09-29 14:11 | PM.IMPN ---
Progress Note: A&P Assessment and Plan (1) Diverticulitis: Code(s): K57.92 - Diverticulitis of intestine, part unspecified, without perforation or abscess without bleeding Status: Acute Assessment and Plan: Patient presented to the ED on 09/21/2022 for abdominal pain. Patient was found to have diverticulitis on CT abdomen pelvis. CT of the abdomen and pelvis shows inflammatory process in the lower left quadrant compatible with acute sigmoid diverticulitis with micro perforation small bubbles of free air and inflammatory changes Patient receiving IV Zosyn and IV Flagyl General surgery consulted and appreciate recommendations. Pain medications on board. Added dicyclomine to help with the abdominal spasms. Patient undergoing drain placement on 09/27/2022 due to worsening diverticulitis on repeat CT scan. 09/28/22 patient postop day 1 perc drain placement patient's pain is much better today General surgery following cultures pending 09/29/22 postop day 2 perc drain placement patient's pain improving try to wean pain medication cultures pending and no growth to date attempt to call General surgery to deescalate antibiotics and waiting to hear back diet advancement as tolerated (2) Abdominal pain: Code(s): R10.9 - Unspecified abdominal pain Status: Acute Assessment and Plan: see above (3) Hypertension: Code(s): I10 - Essential (primary) hypertension Status: Acute Assessment and Plan: ?on no home medications monitor ?most likely elevated due to patient's pain and diverticulitis 09/29/22 patient has blood pressure has been elevated most of the time during her hospital stay. Will add 10 mg amlodipine. When discussing this with patient she stated that she will not take this medication as an outpatient. Discussed with her the risks and benefits of uncontrolled hypertension. Patient stated to me that she would have a close follow-up with her primary care provider regarding her high blood pressure. (4) Hypokalemia: Code(s): E87.6 - Hypokalemia Status: Acute Assessment and Plan: Potassium replenished as needed. stable. Time Spent With Patient Time with patient: Greater than 35 minutes Subjective Date/time seen: 09/29/22 14:11 Interval history: Patient doing much better today and is a lot more at ease. Patient with minimal pain today. Patient continuing to have diarrhea. Diarrhea could be due to diverticulitis or antibiotics. Patient does have some nausea with the eating but no vomiting. She denies fever, chest pain and shortness of breath. Review of Systems Review of Systems: All systems reviewed & are unremarkable except as noted in HPI and below Exam Narrative: GENERAL: Comfortable, no acute distress HENMT: moist mucous membranes EYES: EOM intact b/l NECK: no lymphadenopathy RESPIRATORY: clear to auscultation CARDIO: RRR GI: soft, tender, bowel sounds present, proceed to strain placement intact with dry bandages covering insertion site, brown fluid draining into bag. SKIN: no rashes EXTREMITIES: no edema, redness or tenderness Objective Data Vital Signs Vital Signs: Vital Signs - 24 hr 09/28/22 21:51 09/29/22 06:00 09/29/22 08:00 Temperature 97.6 F 97.6 F Pulse Rate 80 77 Respiratory Rate 16 16 Blood Pressure 166/86 H 178/93 H Pulse Oximetry 100 98 Oxygen Delivery Room Air Intake/Output Intake/Output: Intake & Output 09/26/22 09/27/22 09/28/22 09/29/22 23:59 23:59 23:59 23:59 Intake Total 2320 550 2920 1999 Output Total 700 1400 725 Balance 1620 -443 0482 1999 Meds/Results Medications: Active Medications Generic Name Dose Route Start Last Admin Trade Name Freq PRN Reason Stop Dose Admin Acetaminophen 1,000 mg 09/24/22 12:00 Acetaminophen 500 Mg Tablet PO Q6H PRN Mild Pain (1-3) or Fever Amlodipine Besylate 10 mg 0
--- NOTE | 2022-09-29 15:37 | PM.PNGS ---
Progress Note: A&P Assessment and Plan (1) Diverticulitis of intestine with perforation without abscess: Code(s): K57.80 - Diverticulitis of intestine, part unspecified, with perforation and abscess without bleeding Status: Acute Assessment and Plan: Patient continues to clinically improve. Advanced to a low fiber diet today. Okay to discharge the patient home and transition to oral antibiotics this afternoon if she is still tolerating her diet. Continue low fiber diet. Will keep the perc drain in place on discharge and follow-up with Dr. Bae in 1 week. Plan I have discussed the patient's case and plan of care with Dr. Bae. Subjective Subjective Date/Time Seen: 09/29/22 15:37 Patient reports: no new complaints, feels better, pain is less, tolerating liquids well, flatus, bowel movement (loose stools) and afebrile Interval history: Patient reportedly feeling much better again today. Her lower abdominal pain has resolved and now only reports some soreness at the drain site in the LLQ. She did have IV Dilaudid this morning but has not required any pain medication since. She is comfortable and tolerating activity well. No nausea or vomiting. Review of Systems Review of Systems: ROS unchanged Exam Const: General: comfortable and no acute distress Orientation/consciousness: patient oriented x3 GI: Inspection: non-distended and other (perc drain with dark calloway/brown output) GI Palp: Yes Soft to palpation, Yes Tenderness to palpation present (GI) (very mild TTP in mid to left lower abd near perc drain, much improved), No Guarding due to palpation present (GI) and No Rebound tenderness present Percussion: Yes normal to percussion Auscultation: normal bowel sounds Objective Data Vital Signs Vital Signs: Vital Signs - 24 hr 09/28/22 21:51 09/29/22 06:00 09/29/22 08:00 Temperature 97.6 F 97.6 F Pulse Rate 80 77 Respiratory Rate 16 16 Blood Pressure 166/86 H 178/93 H Pulse Oximetry 100 98 Oxygen Delivery Room Air Intake/Output Intake/Output: Intake & Output 09/26/22 09/27/22 09/28/22 09/29/22 23:59 23:59 23:59 23:59 Intake Total 2320 550 2920 2240 Output Total 700 1400 725 Balance 1620 -850 2195 2240 Meds/Results Medications: Active Medications Generic Name Dose Route Start Last Admin Trade Name Freq PRN Reason Stop Dose Admin Acetaminophen 1,000 mg 09/24/22 12:00 Acetaminophen 500 Mg Tablet PO Q6H PRN Mild Pain (1-3) or Fever Amlodipine Besylate 10 mg 09/29/22 09:00 09/29/22 11:56 Amlodipine Besylate 5 Mg Tablet PO Not Given QAM MICHOACANO Dicyclomine HCl 20 mg 09/26/22 12:38 Dicyclomine Hcl 10 Mg Capsule PO QID PRN Abdominal Cramping Enoxaparin Sodium 40 mg 09/23/22 09:00 09/29/22 08:30 Enoxaparin 40 Mg/0.4 Ml Syringe SUB-Q 40 mg DAILY MICHOACANO Administration Piperacillin/Tazobactam/Dextrose 3.375 gm in 50 mls @ 100 mls/hr 09/22/22 09:00 09/29/22 11:40 Zosyn 3.375 Gm/D5w 50ml Pm IVPB Infused Q6H MICHOACANO Infusion Metronidazole 500 mg in 100 mls @ 100 mls/hr 09/26/22 20:00 09/29/22 12:11 Flagyl 500 Mg/Iso Soln 100 Ml IVPB Infused Q8H MICHOACANO Infusion Lidocaine 1 patch 09/24/22 12:00 09/29/22 10:19 Lidocaine 5% Patch TRANSDERM Not Given DAILY MICHOACANO Lorazepam 1 mg 09/27/22 15:33 Lorazepam Inj (*Crx) 2 Mg/Ml Vial IV PUSH Q6H PRN Anxiety Ondansetron HCl 4 mg 09/23/22 19:59 09/27/22 14:57 Ondansetron Inj 4 Mg/2 Ml Vial IV PUSH 4 mg Q6H PRN Administration Nausea And Vomiting Oxycodone/Acetaminophen 1 tablet 09/29/22 11:39 Oxycodone/Acetaminophen (*Crx) 5-325 Mg Tablet PO Q4H PRN Pain Rated 4-6 Oxycodone/Acetaminophen 1 tab 09/29/22 11:39 Oxycodone/Acetaminophen (*Crx) 10-325 Mg Tablet PO Q4H PRN Pain Rated 7-10 Sodium Chloride 10 ml 09/26/22 22:00 09/29/22 05:37 Central Line Flush IV PUSH 10 ml Q8HR MICHOACANO Administration S
--- NOTE | 2022-09-29 16:00 | P.DS_ITS ---
DS: Admitting Diagnosis Discharge Date 09/29/22 Admitting Diagnosis diverticulitis DS: Discharge Diagnosis Discharge Diagnosis (1) Diverticulitis: Code(s): K57.92 - Diverticulitis of intestine, part unspecified, without perforation or abscess without bleeding Status: Acute Assessment and Plan: Patient presented to the ED on 09/21/2022 for abdominal pain. Patient was found to have diverticulitis on CT abdomen pelvis. * CT of the abdomen and pelvis shows inflammatory process in the lower left quadrant compatible with acute sigmoid diverticulitis with micro perforation small bubbles of free air and inflammatory changes * Patient receiving IV Zosyn and IV Flagyl * General surgery consulted and appreciate recommendations. * Pain medications on board. * Added dicyclomine to help with the abdominal spasms. * Patient undergoing drain placement on 09/27/2022 due to worsening diverticulitis on repeat CT scan. 09/28/22 * patient postop day 1 perc drain placement * patient's pain is much better today * General surgery following * cultures pending 09/29/22 * postop day 2 perc drain placement * patient's pain improving try to wean pain medication * cultures pending and no growth to date * called General surgery to deescalate antibiotics. They have seen patient and are okay to discharge tonight. * diet advancement as tolerated (2) Abdominal pain: Code(s): R10.9 - Unspecified abdominal pain Status: Acute Assessment and Plan: see above (3) Hypertension: Code(s): I10 - Essential (primary) hypertension Status: Acute Assessment and Plan: * ?on no home medications * monitor * ?most likely elevated due to patient's pain and diverticulitis 09/29/22 * patient has blood pressure has been elevated most of the time during her hospital stay. * Will add 10 mg amlodipine. When discussing this with patient she stated that she will not take this medication as an outpatient. Discussed with her the risks and benefits of uncontrolled hypertension. Patient stated to me that she would have a close follow-up with her primary care provider regarding her high blood pressure. (4) Hypokalemia: Code(s): E87.6 - Hypokalemia Status: Acute Assessment and Plan: * Potassium replenished as needed. * stable. DS: Summary Hospital Course Reason for hospitalization: diverticulitis Hospital Course: 47-year-old female presented to the ED on 09/21/2022 for evaluation of abdominal pain. Patient described the pain as stabbing in nature located around the umbilicus. Patient experience nausea, vomiting and diarrhea. Denies blood in stool. No fevers noted. CT abdomen pelvis revealed a diverticulitis patient was started on IV Zosyn And fluids. General surgery was consulted. patient was given a analgesics as needed. Patient did experience hypertension during her hospital stay and this was controlled with hydralazine as needed. During patient's stay she worsened the first couple days she was in the hospital. This prompted a subsequent CT scan Which revealed worsening diverticulitis with abscess. Flagyl added to patient's antibiotic regimen. General surgery decided for a percutaneous drain placement. patient had drain placed on 09/27/2022. P atient's pain much better controlled postoperatively. Discussed case with General surgery a couple times a worked with them in regards to deescalation of patient's antibiotics and pain medications. Patient's antibiotics de-escalated
--- NOTE | 2022-09-29 16:00 | PM.DS ---
DS: Admitting Diagnosis Discharge Date 09/29/22 Admitting Diagnosis diverticulitis DS: Discharge Diagnosis Discharge Diagnosis (1) Diverticulitis: Code(s): K57.92 - Diverticulitis of intestine, part unspecified, without perforation or abscess without bleeding Status: Acute Assessment and Plan: Patient presented to the ED on 09/21/2022 for abdominal pain. Patient was found to have diverticulitis on CT abdomen pelvis. CT of the abdomen and pelvis shows inflammatory process in the lower left quadrant compatible with acute sigmoid diverticulitis with micro perforation small bubbles of free air and inflammatory changes Patient receiving IV Zosyn and IV Flagyl General surgery consulted and appreciate recommendations. Pain medications on board. Added dicyclomine to help with the abdominal spasms. Patient undergoing drain placement on 09/27/2022 due to worsening diverticulitis on repeat CT scan. 09/28/22 patient postop day 1 perc drain placement patient's pain is much better today General surgery following cultures pending 09/29/22 postop day 2 perc drain placement patient's pain improving try to wean pain medication cultures pending and no growth to date called General surgery to deescalate antibiotics. They have seen patient and are okay to discharge tonight. diet advancement as tolerated (2) Abdominal pain: Code(s): R10.9 - Unspecified abdominal pain Status: Acute Assessment and Plan: see above (3) Hypertension: Code(s): I10 - Essential (primary) hypertension Status: Acute Assessment and Plan: ?on no home medications monitor ?most likely elevated due to patient's pain and diverticulitis 09/29/22 patient has blood pressure has been elevated most of the time during her hospital stay. Will add 10 mg amlodipine. When discussing this with patient she stated that she will not take this medication as an outpatient. Discussed with her the risks and benefits of uncontrolled hypertension. Patient stated to me that she would have a close follow-up with her primary care provider regarding her high blood pressure. (4) Hypokalemia: Code(s): E87.6 - Hypokalemia Status: Acute Assessment and Plan: Potassium replenished as needed. stable. DS: Summary Hospital Course Reason for hospitalization: diverticulitis Hospital Course: 47-year-old female presented to the ED on 09/21/2022 for evaluation of abdominal pain. Patient described the pain as stabbing in nature located around the umbilicus. Patient experience nausea, vomiting and diarrhea. Denies blood in stool. No fevers noted. CT abdomen pelvis revealed a diverticulitis patient was started on IV Zosyn And fluids. General surgery was consulted. patient was given a analgesics as needed. Patient did experience hypertension during her hospital stay and this was controlled with hydralazine as needed. During patient's stay she worsened the first couple days she was in the hospital. This prompted a subsequent CT scan Which revealed worsening diverticulitis with abscess. Flagyl added to patient's antibiotic regimen. General surgery decided for a percutaneous drain placement. patient had drain placed on 09/27/2022. Patient's pain much better controlled postoperatively. Discussed case with General surgery a couple times a worked with them in regards to deescalation of patient's antibiotics and pain medications. Patient's antibiotics de-escalated to p.o. Augmentin and Flagyl which will be continued as an outpatient. Patient will follow-up with General surgery for repeat scan and drain removal. Discussed with patient that getting a primary care provider and following up on hypertension would be in her best interest. Patient not interested in hypertensive medications and stated to me that she would not take them if I prescribe them. I discussed the risks for un
[2022-09-29] MEDS: oxyCODONE/ACETAMINOPHEN (*CRX) 5-325 MG TABLET 1 TABLET PO (16:38)
--- NOTE | 2022-09-29 18:20 | PC.NURSE ---
Addendum entered by Unique Castillo RN 09/29/22 18:21: Pt re-educated on the importance of taking all medications. Emptying perc drain and recording output. Reminded to keep all appts with MD's. Pt recommended to take blood pressure twice a day and give to her pcp so that they can talk about blood pressure medication in the future. Right now pt did not want any from us. Original Note: PICC line pulled. No issues. Pt re-rowan
== END 2022-09-29 17:50 | disposition home or self-care (01) | DRG 392 ==
LOC: ANHED 09-22 02:33 → ANH3MEDSUR 09-22 03:45
PROVIDERS: Emergency Medicine; Nurse Practitioner; Nurse Practitioner Family; Surgery; Admitting Provider Internal Medicine; Emergency Provider Physician Assistant; Visit Provider Internal Medicine Critical Care Medicine
DX: K57.20 Diverticulitis of large intestine with perforation and abscess without bleeding (principal); E87.6 Hypokalemia; I10 Essential (primary) hypertension; Z20.822 Contact with and (suspected) exposure to COVID-19
CPT/HCPCS: 36415; 36569; 71045; 74176; 74177; 75989; 80048; 80053; 81001; 83605; 83690; 83735; 85025; 85027; 85610; 85730; 86140; 87070; 87075; 87205; 87636; 96361; 96365; 96366; 96374; 96375; 96376; 99285; A9270; C1729; C1751; C1769; G0378; J0131; J1170; J1650; J1741; J1885; J2250; J2270; J2405; J2543; J2765; J3010; J3480; J7040; J7050; J7120; Q9967

== ENCOUNTER 2022-10-04 10:47 | Observation (INO) | payer OTHER, MEDICAID, SELFPAY ==
[2022-10-04] VITALS (8 sets, daily range): BP systolic 100–144; BP diastolic 57–79; PULSE 60–78; RESP 16–18; TEMP 36.4–36.7; O2SAT 97–100; BMI 29.7
--- NOTE | ~2022-10-04 | CT_ITS ---
EXAMINATION: CT abdomen pelvis w con DATE: 10/04/2022 17:24 INDICATION: Nonlocalized abdominal pain. TECHNIQUE: Computed tomography (CT) of the abdomen and pelvis was performed with 100 mL Omnipaque 350 intravenous contrast. Automated exposure control and iterative reconstruction technique were employe d. The dose-length product was 476.24 mGy-cm. COMPARISON: CT abdomen and pelvis 09/26/2022, 09/22/22 FINDINGS: The visualized portions of the lung bases demonstrated mild atelectasis. No pleural effusio n. The heart size is normal. No pericardial effusion. There is a small sliding hiatal hernia. There a re cysts in the liver measuring up to 8 mm. The spleen, pancreas, adrenal glands, and left kidney are normal. There is a 12 mm cyst in right kidney. There is a 2.9 cm dominant follicle in right ovary. T here is wall thickening of the sigmoid colon. There is scattered diverticula in the colon. The append ix measures 9 mm in diameter. There is a percutaneous drain near the sigmoid colon. There are no path ologically enlarged lymph nodes. There is no free intraperitoneal fluid. There is mild lumbar spondyl osis. IMPRESSION: 1. Sigmoid diverticulitis with perisigmoid drain. No residual abscess. 2. Appendiceal diameter of 9 mm, but no signs of appendiceal inflammation. Reviewed, dictated and finalized at location A. ING MACHINE OPERATOR
[2022-10-04 11:30] LABS: Basophils Absolute Auto 0.1 K/mm3 (0.0-0.1); Basophils Percent Auto 0.5 % (0.2-1.2); Eosinophils Absolute Auto 0.1 K/mm3 (0-0.3); Eosinophils Percent Auto 0.9 % (0-4.4); Hematocrit 30.3 % (37.0-47.0); Hemoglobin 10.1 g/dL (12.0-15.0); Immature Granulocyte Absolute 0.09 K/mm3 (0.00-0.031); Immature Granulocyte Percent A 0.9 % (0-0.5); Lymphocytes Absolute Auto 1.24 K/mm3 (0.9-3.2); Lymphocytes Percent Auto 11.8 % (18.3-44.2); Mean Corpuscular HGB Conc 33.3 g/dl (32-36); Mean Corpuscular Hemoglobin 27.7 pg (26-34); Mean Corpuscular Volume 83.2 fl (80-100); Monocytes Absolute Auto 0.4 K/mm3 (0.1-0.6); Monocytes Percent Auto 3.5 % (2.6-8.5); Neutrophils Absolute Auto 8.7 K/mm3 (1.3-6.7); Neutrophils Percent Auto 82.4 % (45.5-73.1); Platelet Count Result 590 k/mm3 (150-375); Red Blood Count 3.64 M/mm3 (4.2-5.4); Red Cell Distribution Width 15.5 % (11.5-14.5); White Blood Count 10.5 K/mm3 (4.5-10.0)
[2022-10-04 11:42] LABS: Alanine Aminotransferase 35 U/L (6-35); Albumin Level 4.1 g/dL (3.5-5.1); Alkaline Phosphatase 103 U/L (38-126); Anion Gap 4 mmol/L (8-16); Aspartate Amino Transferase 34 U/L (14-36); Bilirubin,Total 0.4 mg/dL (0.2-1.3); Blood Urea Nitrogen 6 mg/dL (7-17); Carbon Dioxide 30 mmol/L (22-30); Chloride 102 mmol/L (98-107); Estimated CRCL calculation 89 ml/min; Estimated Glomerular Filt Rate > 60; Glucose 112 mg/dL (65-110); Lipase 59 U/L (23-300); Potassium 2.9 mmol/L (3.4-5.0); Sodium 136 mmol/L (137-145)
[2022-10-04] MEDS: ONDANSETRON INJ 4 MG/2 ML VIAL IV PUSH (17:12)
[2022-10-04] MEDS: MORPHINE SULFATE (*CRX) 4 MG/ML INJ IV PUSH (17:12)
--- NOTE | 2022-10-04 18:42 | ED.ABDPAIN ---
HPI - Abdominal Pain General Chief Complaint: Abdominal Pain Stated Complaint: pt has diverticulitis, pain, recent surgery Time Seen by Provider: 10/04/22 16:42 History of Present Illness HPI narrative: Patient is a 47-year-old female who presents ER with abdominal pain. Increasing today. Associate with some nausea. Recently diagnosed with diverticulitis and had a drain placed for abscess. Patient was discharged 3 days ago with oral Augmentin and metronidazole. Patient developed increased pain and called her on-call general surgeon who recommended she come to the ER for evaluation. No fevers or chills or sweats. Pain of the abdomen is worse with any type of movement. Reports no increase in drainage from her abdominal drain but actually reports decreased drainage. No abnormalities with the drainage insertion site. Related Data Allergies Allergy/AdvReac Type Severity Reaction Status Date / Time No Known Allergies Allergy Verified 09/21/22 20:11 [facility] Past Medical History Medical History (Updated 10/04/22 @ 19:30 by Tomasz Laurent MD) Diverticulitis of intestine with perforation without abscess Surgical History Surgical History History of ankle surgery History of laparoscopic cholecystectomy History of tubal ligation Social History Social History Smoking status: Never smoker Second hand tobacco smoke exposure: No Alcohol intake: current Substance use: former Substance use type: marijuana Lack of Transportation: No Lack of Food: Never True Current Housing: I Have Housing Concerned About Future Housing: No Difficulty Paying Gas/Electric Bills: No Difficulty Paying for Meds: No Currently Unemployed: No Education: High School Diploma/GED Difficulty w/ Childcare or Family Care: No Occupation/Education: occupation Additional occupation/education comments: Works for [employer] Spiritual care concerns: No Exam Narrative: GENERAL: Uncomfortable-appearing, well-nourished, and in no acute distress. HEAD: Normocephalic, atraumatic. ENT: Mucous membranes moist. CHEST: Clear to auscultation. No respiratory distress. HEART: Regular rate and rhythm. Normal peripheral pulses. ABDOMEN: Soft, mild diffuse tenderness without guarding, nondistended, normal active bowel sounds. Only a small amount of drainage and her drain which is coming from mid abdomen. No surrounding cellulitis. EXTREMITIES: Normal range of motion. No edema. SKIN: Warm, dry, no rash. NEURO: Alert and oriented x3. PSYCH: Normal mood and affect. Course Course Emergency Course: Discussed case with general surgery. Recommend admission for failed outpatient antibiotics. Start Zosyn. Replace potassium. Admit to hospitalist service. Patient aware of diagnosis and treatment plan and shared decision-making occurred. Vital Signs Vital signs: Vital Signs Temperature 97.6 F 10/04/22 11:15 Pulse Rate 78 10/04/22 11:15 Respiratory Rate 16 10/04/22 11:15 Blood Pressure 100/57 L 10/04/22 11:15 Pulse Oximetry 100 10/04/22 11:15 Temperature 97.6 F 10/04/22 11:15 Pulse Rate 60 10/04/22 18:39 Respiratory Rate 16 10/04/22 18:39 Blood Pressure 100/57 L 10/04/22 11:15 Pulse Oximetry 100 10/04/22 18:39 MDM - Abdominal Pain Lab Data 10/04/22 11:23 10/04/22 11:23 Labs: Lab Results 10/04/22 10/04/22 Range/Units 11:23 11:23 WBC 10.5 H (4.5-10.0) K/mm3 RBC 3.64 L (4.2-5.4) M/mm3 Hgb 10.1 L (12.0-15.0) g/dL Hct 30.3 L (37.0-47.0) % MCV 83.2 (80-100) fl MCH 27.7 (26-34) pg MCHC 33.3 (32-36) g/dl RDW 15.5 H (11.5-14.5) % Plt Count 590 H (150-375) k/mm3 MPV 8.0 (7.4-10.4) fl Immature Gran % (Auto) 0.9 H (0-0.5) % Neut % (Auto) 82.4 H (45.5-73.1) % Lymph % (Auto) 11.8 L (18.3-44.2) % [place] % (Auto)
[2022-10-04] MEDS: KETOROLAC 30 MG/ML VIAL (*BKC) IV PUSH (19:00)
--- NOTE | 2022-10-04 19:14 | PC.NURSE ---
Hospitalist PA at bedside to assess pt.
--- NOTE | 2022-10-04 19:50 | PM.IMHP ---
H&P: HPI History of Present Illness Date/Time: 10/04/22 19:15 Chief Complaint: Abdominal pain. Narrative: This is a 47-year-old female with hypertension presented to the emergency department from home for evaluation of abdominal pain. Patient provides the following history. She was discharged from the hospital 5 days ago after a week-long stay in which she was admitted with acute sigmoid diverticulitis with micro perforation. She was started on broad-spectrum antibiotics and she underwent drain placement on 09/27/2022 due to worsening diverticulitis on CT scan. She was discharged with Augmentin and Flagyl and she has had both good and bad days since discharge. Her appetite has not been great though she has been trying to eat in small amounts. She continues to have nausea and occasional episodes of emesis. She continues to have loose stools but not in significant quantities. Occasionally she will notice blood or mucus in the stool. Her pain has been manageable with oxycodone however the last several days it has gotten increasingly worse in the left lower quadrant and after speaking with the surgeon she was told to come back into the emergency department. She still has the drain in place reports that her output has been minimal. She has not had fever, chills, or sweats. In the ED her labs were significant for a WBC of 10.5, sodium 136, potassium 2.9, creatinine 0.60, and normal LFTs. CT of the abdomen and pelvis showed findings of sigmoid diverticulitis with perisigmoid drain in place without residual abscess. She is being admitted in this setting for observation and surgery consultation. Review of Systems Review of Systems: Twelve systems were reviewed and are negative except for as per HPI. [facility] Past Medical History Medical History (Updated 10/04/22 @ 23:19 by Gwen Jonas PA-C) Diverticulitis of intestine with perforation and abscess (09/2022) Hypertension Surgical History Surgical History History of ankle surgery History of laparoscopic cholecystectomy History of tubal ligation Family History Family History (Updated 10/04/22 @ 23:16 by Gwen Jonas PA-C) Other Family history non-contributory Social History Social History (Updated 10/04/22 @ 23:16 by Gwen Jonas PA-C) Social History: Surrogate medical decision maker: Soheila Gabriel, mother. Code status: Full code. Smoking status: Never smoker Second hand tobacco smoke exposure: No Alcohol intake: current Alcohol use details: Alcohol use in moderation. Substance use: former Substance use type: marijuana Lack of Transportation: No Lack of Food: Never True Current Housing: I Have Housing Concerned About Future Housing: No Difficulty Paying Gas/Electric Bills: No Difficulty Paying for Meds: No Currently Unemployed: No Education: High School Diploma/GED Difficulty w/ Childcare or Family Care: No Occupation/Education: occupation Additional occupation/education comments: Works for [employer] Spiritual care concerns: No Meds Home Medications and Allergies Home Medications Medication Instructions Recorded Confirmed Type amoxicillin 875 mg-potassium 1 tablet PO Q12H #15 tabs 09/29/22 10/04/22 Rx clavulanate 125 mg tablet metronidazole 500 mg tablet 500 mg PO Q8H #22 tabs 09/29/22 10/04/22 Rx oxycodone-acetaminophen 5 mg-325 1 tablet PO Q6H PRN Pain Rated 4-6 09/29/22 10/04/22 Rx mg tablet #10 tabs Allergies Allergy/AdvReac Type Severity Reaction Status Date / Time No Known Allergies Allergy Verified 09/21/22 20:11 Vital Signs Vital Signs - 24 hr 10/04/22 11:15 10/04/22 18:39 Temperature 97.6 F Pulse Rate 78 60 Respiratory Rate 16 16 Blood Pressure 100/57 L Pulse Oximetry 100 100 Exam Narrative: General: Mildly ill-appearing female lying on her right side in bed. She has an emesis bag nearby. Weight: 81.2 kg.
[2022-10-04] MEDS: POTASSIUM CHLORIDE INJ 40 MEQ in SODIUM CHLORIDE 0.9% IV 500 ML 130 MEQ IVPB (20:24)
--- NOTE | 2022-10-04 22:03 | ADMGEN ---
This patient, Kiki Gabriel, was admitted to [facility] Surg Room 309-01. Patient/family oriented to hospital policies and general routines including ID bracelet, bed and alarms, visiting hours, pain management, procedures, bathroom and other care routines, personal items, smoking policy, room service/diet, and visiting hours. Information on how to activate the Rapid Response Team has been discussed. Patient/Family are encouraged to report perceived risks to care and to ask questions if they do not understand what they are told or what they should do.
[2022-10-04] MEDS: MORPHINE SULFATE (*CRX) 4 MG/ML INJ 2 MG IV PUSH (23:41)
[2022-10-04] MEDS: SODIUM CHLORIDE 0.9% IV 1,000 ML 100 ML IV CONT (23:41)
[2022-10-05] VITALS (8 sets, daily range): BP systolic 147–180; BP diastolic 75–100; PULSE 64–78; RESP 16–18; TEMP 36.1–37; O2SAT 99–100
[2022-10-05 00:07] LABS: Anion Gap 6 mmol/L (8-16); Blood Urea Nitrogen 7 mg/dL (7-17); Carbon Dioxide 30 mmol/L (22-30); Chloride 106 mmol/L (98-107); Estimated CRCL calculation 104 ml/min; Estimated Glomerular Filt Rate > 60; Glucose 110 mg/dL (65-110); Potassium 3.4 mmol/L (3.4-5.0); Sodium 142 mmol/L (137-145)
[2022-10-05] MEDS: MORPHINE SULFATE (*CRX) 4 MG/ML INJ 2 MG IV PUSH ×4 (06:21→20:33)
--- NOTE | 2022-10-05 12:45 | PM.IMPN ---
Progress Note: A&P Assessment and Plan (1) Sigmoid diverticulitis: Code(s): K57.32 - Diverticulitis of large intestine without perforation or abscess without bleeding Status: Acute Assessment and Plan: ?CT of the abdomen and pelvis shows Diverticulitis with perisigmoid drain, appendiceal diameter of 9mm without inflammation ?continue IV Zosyn ?general surgery consult ?Pain medications on board ?Clear liquids for now ?Added dicyclomine to help with the abdominal spasms Simethicone add for gas pains (2) Hypokalemia: Code(s): E87.6 - Hypokalemia Status: Acute Assessment and Plan: K is 3.4 trend potassium Replace as indicated (3) Hypertension: Code(s): I10 - Essential (primary) hypertension Status: Acute Assessment and Plan: blood pressure slightly high at 163/93 no home medications ?continue trend ?most likely elevated due to patient's pain and diverticulitis (4) Normocytic anemia: Code(s): D64.9 - Anemia, unspecified Status: Acute Assessment and Plan: H/H stable at 10.1/30.3 ?continue trend ?Consider anemia labs Continue to trend for now Plan 15 minutes in collaboration with general surgery Time Spent With Patient Time: 51 minutes Time with patient: Greater than 35 minutes Subjective Date/time seen: 10/05/22 12:45 Interval history: 10/05/22 1245 Patient is resting comfortably in bed. Patient stated she is having a little burning sensation especially at the insertion site of the drain. She currently denies any nausea, vomiting diarrhea or constipation. She did state that she was having little smears. She also stated that she feels like she is having a lot of gas. She currently looks okay. Currently rates her pain as a 6. She did state that it is a lot better than when she came in. 10/04/22? 19:15 This is a 47-year-old female with hypertension presented to the emergency department from home for evaluation of abdominal pain. Patient provides the following history. She was discharged from the hospital 5 days ago after a week-long stay in which she was admitted with acute sigmoid diverticulitis with micro perforation. She was started on broad-spectrum antibiotics and she underwent drain placement on 09/27/2022 due to worsening diverticulitis on CT scan. She was discharged with Augmentin and Flagyl and she has had both good and bad days since discharge. Her appetite has not been great though she has been trying to eat in small amounts. She continues to have nausea and occasional episodes of emesis. She continues to have loose stools but not in significant quantities. Occasionally she will notice blood or mucus in the stool. Her pain has been manageable with oxycodone however the last several days it has gotten increasingly worse in the left lower quadrant and after speaking with the surgeon she was told to come back into the emergency department. She still has the drain in place reports that her output has been minimal. She has not had fever, chills, or sweats. In the ED her labs were significant for a WBC of 10.5, sodium 136, potassium 2.9, creatinine 0.60, and normal LFTs. CT of the abdomen and pelvis showed findings of sigmoid diverticulitis with perisigmoid drain in place without residual abscess. She is being admitted in this setting for observation and surgery consultation. Review of Systems Review of Systems: All systems reviewed & are unremarkable except as noted in HPI and below Exam Narrative: General: well-nourished, well-appearing 47-year-old female, sitting up in bed, comfortable, NARD Neuro: awake, alert and oriented x4, speech clear, no focal neuro deficits noted HEENMT: normocephalic, atraumatic, EOMI, sclerae anicteric, moist oral mucosa Respiratory: Clear to auscultation bilaterally without crackles, rhonchi or wheezes, nonlabored breathing Cardio: regular rate, regul
--- NOTE | 2022-10-05 13:19 | PM.CNGS ---
Assessment and Plan Assessment and plan (1) Diverticulitis of intestine with perforation without abscess: Code(s): K57.80 - Diverticulitis of intestine, part unspecified, with perforation and abscess without bleeding Status: Acute Assessment and Plan: CT scan reviewed and appears her diverticulitis has improved with no residual fluid collection in the location of the percutaneous drain. She has not had any output from the perc drain in 3 days. Will continue to monitor the perc drain for now. I have also asked nursing to try and replace the drain bag itself as they are having issues with having gas fill up the suction bellow frequently this morning. I have changed the dressing and secured all connections. Overall, her abdominal pain and the diverticulitis seems to be improving. Her abdominal exam is benign without any peritoneal signs. It is not clear why she is having all of the nausea and vomiting, but this resolved by the time I saw the patient. We will continue the IV Zosyn for now and try a clear liquid diet to see if she can tolerate oral intake. Will also add oral analgesics for an option for pain control. We will repeat labs again tomorrow and monitor with serial abdominal exams. (2) Nausea and vomiting: Code(s): R11.2 - Nausea with vomiting, unspecified Status: Acute Assessment and Plan: Improved. She denies any nausea this morning and no vomiting since admission. Will try clear liquids today. Continue to monitor. Zofran ordered as needed. (3) Hypokalemia: Code(s): E87.6 - Hypokalemia Status: Acute Assessment and Plan: Had nausea and vomiting over the past few days and potassium was 2.9 on admission. This was replaced with 40 meq IV KCL. Potassium 3.4 this morning. Continue to monitor labs and replace as needed. (4) Hypertension: Code(s): I10 - Essential (primary) hypertension Status: Acute (5) Normocytic anemia: Code(s): D64.9 - Anemia, unspecified Status: Acute Plan I have discussed the patient's case and plan of care with Dr. Bae. Thank you for allowing us to see the patient in consultation and we will continue to follow along with you. History of Present Illness Consult details Consult date: 10/05/22 Reason for consult: other (Perforated diverticulitis with abscess) Requesting physician: Tomasz Laurent MD Narrative: This is a 47-year-old woman who is known to our service from a recent hospitalization for perforated diverticulitis with abscess from 09/21/22 - 09/29/22. She was treated with percutaneous drainage on 09/27/22 and antibiotics. She eventually improved and was discharged home on a low fiber diet and transitioned to oral antibiotics with Augmentin and Flagyl. Since being home, she reports emptying 20 cc from her drain on 09/30 and 10 cc on 10/01. Since then, she has not had any further output from the drain. She reports having nausea that she initially attributed to her Flagyl. She felt more nauseated after specifically taking this medication but felt she tolerated the Augmentin well. She stopped taking the Flagyl 3 days ago, but continued to taking the Augmentin as prescribed. She has continued to have nausea and had multiple episodes of vomiting over the past two days. She felt like she couldn't keep anything down. Yesterday, she also developed chills. She reports that the abdominal pain she had when presenting with diverticulitis on the last hospitalization has completely resolved. She now only has complaints of pain at the perc drain site in the LLQ and describes this as a burning pain. She also reports having some gas pains for the past few days, but mild. She has been passing flatus and reports loose stools since discharge, but only 1-2 daily. Her last BM was yesterday. Due to her nausea and vomiting and abdominal pian, she called the surgeon's office yesterday and was instructed to return to the ER. Labs showed a WBC count 10,500,
[2022-10-05] MEDS: HYDROcodone/acetaminophen (*CRX) 5-325 MG TABLET 1 TAB PO (13:49)
[2022-10-05] MEDS: SIMETHICONE 80 MG TAB.CHEW PO ×3 (13:49→20:33)
[2022-10-05 14:01] LABS: Appearance Urine Clear (Clear); Bilirubin Urine Negative (Negative); Blood Urine Negative (Negative); Color Urine Yellow (Yellow); Glucose Urine UA Negative (Negative); Ketones Urine Negative (Negative); Leukocyte Esterase Ur Negative LEU/UL (Negative); Nitrate Urine Negative (Negative); Protein Urine 1+ mg/dL (Negative); Urobilinogen Urine 0.2 mg/dL (<2.0)
[2022-10-05 14:09] LABS: Mucus Urine Rare /lpf; RBC Urine 0-2 /hpf (0-2); Squamous Epithelial Cell Urine Moderate /hpf (Few)
[2022-10-05 14:12] LABS: Add Urine Microscopic? YES
[2022-10-05] MEDS: DICYCLOMINE HCL 10 MG CAPSULE 20 MG PO (17:11)
[2022-10-06] MEDS: MORPHINE SULFATE (*CRX) 4 MG/ML INJ 2 MG IV PUSH ×2 (00:22→04:37)
[2022-10-06 05:51] VITALS: BP 143/82; PULSE 66; RESP 16; TEMP 36.3; O2SAT 100
[2022-10-06 07:30] LABS: Hematocrit 30.2 % (37.0-47.0); Hemoglobin 10.1 g/dL (12.0-15.0); Mean Corpuscular HGB Conc 33.4 g/dl (32-36); Mean Corpuscular Hemoglobin 28.3 pg (26-34); Mean Corpuscular Volume 84.6 fl (80-100); Mean Platelet Volume 8.3 fl (7.4-10.4); Platelet Count Result 595 k/mm3 (150-375); Red Blood Count 3.57 M/mm3 (4.2-5.4); Red Cell Distribution Width 15.7 % (11.5-14.5); White Blood Count 10.7 K/mm3 (4.5-10.0)
[2022-10-06 07:42] LABS: Anion Gap 4 mmol/L (8-16); Blood Urea Nitrogen 5 mg/dL (7-17); Calcium 8.5 mg/dL (8.4-10.2); Carbon Dioxide 29 mmol/L (22-30); Chloride 102 mmol/L (98-107); Estimated CRCL calculation 90 ml/min; Estimated Glomerular Filt Rate > 60; Glucose 99 mg/dL (65-110); Sodium 135 mmol/L (137-145)
[2022-10-06] MEDS: DICYCLOMINE HCL 10 MG CAPSULE 20 MG PO (08:50)
[2022-10-06] MEDS: SIMETHICONE 80 MG TAB.CHEW PO ×4 (08:50→20:00)
[2022-10-06 09:52] VITALS: BP 141/77; PULSE 77; RESP 16; TEMP 36.3; O2SAT 100
[2022-10-06] MEDS: POTASSIUM CHLORIDE 20 MEQ TABLET 40 MEQ PO (11:31)
--- NOTE | 2022-10-06 12:15 | PM.IMPN ---
Progress Note: A&P Assessment and Plan (1) Sigmoid diverticulitis: Code(s): K57.32 - Diverticulitis of large intestine without perforation or abscess without bleeding Status: Acute Assessment and Plan: ?CT of the abdomen and pelvis shows Diverticulitis with perisigmoid drain, appendiceal diameter of 9mm without inflammation ?continue IV Zosyn ?general surgery consult ?Pain medications on board ?Clear liquids for now ?Added dicyclomine to help with the abdominal spasms Simethicone add for gas pains Toradol x6 doses (2) Hypokalemia: Code(s): E87.6 - Hypokalemia Status: Acute Assessment and Plan: K is 3.0 replace with 40meq of potassium once trend potassium Replace as indicated (3) Hypertension: Code(s): I10 - Essential (primary) hypertension Status: Acute Assessment and Plan: blood pressure slightly high at 141/77 no home medications ?continue trend ?most likely elevated due to patient's pain and diverticulitis (4) Normocytic anemia: Code(s): D64.9 - Anemia, unspecified Status: Acute Assessment and Plan: H/H stable at 10.1/30.2 ?continue trend ?Consider anemia labs Continue to trend for now Time Spent With Patient Time: 48 minutes Time with patient: Greater than 35 minutes Subjective Date/time seen: 10/06/22 1215 Interval history: 10/06/22 1215 Patient is lying in bed. Patient stated that she is having some pretty significant pain in her abdomen especially around the drain site. She denies any chest pain, shortness a breath, nausea, vomiting. She did state that when she does get her major abdominal pain which she claims it to be gas she does have a little bit of chest pressure, however it resolves when the pain goes down as well. Patient is tolerating clear liquid diet. General surgery was in talking to the patient as well. 10/05/22 1245 Patient is resting comfortably in bed. Patient stated she is having a little burning sensation especially at the insertion site of the drain. She currently denies any nausea, vomiting diarrhea or constipation. She did state that she was having little smears. She also stated that she feels like she is having a lot of gas. She currently looks okay. Currently rates her pain as a 6. She did state that it is a lot better than when she came in. 10/04/22? 19:15 This is a 47-year-old female with hypertension presented to the emergency department from home for evaluation of abdominal pain. Patient provides the following history. She was discharged from the hospital 5 days ago after a week-long stay in which she was admitted with acute sigmoid diverticulitis with micro perforation. She was started on broad-spectrum antibiotics and she underwent drain placement on 09/27/2022 due to worsening diverticulitis on CT scan. She was discharged with Augmentin and Flagyl and she has had both good and bad days since discharge. Her appetite has not been great though she has been trying to eat in small amounts. She continues to have nausea and occasional episodes of emesis. She continues to have loose stools but not in significant quantities. Occasionally she will notice blood or mucus in the stool. Her pain has been manageable with oxycodone however the last several days it has gotten increasingly worse in the left lower quadrant and after speaking with the surgeon she was told to come back into the emergency department. She still has the drain in place reports that her output has been minimal. She has not had fever, chills, or sweats. In the ED her labs were significant for a WBC of 10.5, sodium 136, potassium 2.9, creatinine 0.60, and normal LFTs. CT of the abdomen and pelvis showed findings of sigmoid diverticulitis with perisigmoid drain in place without residual abscess. She is being admitted in this setting for observation and surgery consultation. Review of Systems
[2022-10-06] MEDS: KETOROLAC 15 MG/ML VIAL (*BKC) IV PUSH (12:24)
--- NOTE | 2022-10-06 13:50 | PM.PNGS ---
Progress Note: A&P Assessment and Plan (1) Diverticulitis of intestine with perforation without abscess: Code(s): K57.80 - Diverticulitis of intestine, part unspecified, with perforation and abscess without bleeding Status: Acute Assessment and Plan: Unclear why she continues to have a significant amount of abdominal pain. CT scan showed the diverticulitis had improved with no residual fluid collection. No other signs of worsening infection. Will try adjusting her pain medication to help with pain control. Continue IV Zosyn Monitor perc drain May be able to start advancing her diet if her pain improves. (2) Nausea and vomiting: Code(s): R11.2 - Nausea with vomiting, unspecified Status: Acute Assessment and Plan: Resolved. Tolerating clear liquids. (3) Hypokalemia: Code(s): E87.6 - Hypokalemia Status: Acute Assessment and Plan: Continue to monitor and replace as needed. Plan I have discussed the patient's case and plan of care with Dr. Bae. Subjective Subjective Date/Time Seen: 10/06/22 13:50 Patient reports: still having pain, tolerating liquids well, bowel movement (small loose BM this am) and afebrile Interval history: Patient still having abdominal pain that she does not feel is being controlled with the Morphine. She has received IV Morphine through the night and this morning. This has since been stopped. She reports cramping abdominal pain in the center of her abdomen and then burning pain at the site of the perc drain in the LLQ. She does not feel it is worse than yesterday, but just doesn't feel like any medications are helping the pain. She did feel that the Toradol helped last time she was admitted and is requesting this and the Dilaudid. She is tolerating clear liquids and denies any nausea. No vomiting since admission still. No other complaints at this time. Review of Systems Review of Systems: ROS unchanged Exam Const: General: comfortable and no acute distress Orientation/consciousness: patient oriented x3 GI: Inspection: non-distended GI Palp: Yes Soft to palpation, Yes Tenderness to palpation present (GI) (more diffusely tender today, but most focally in the LLQ), Yes Guarding due to palpation present (GI) (LLQ near perc drain) and No Rebound tenderness present Auscultation: normal bowel sounds Other: LLQ perc drain with scant amount of dark brown output in tubing, but no significant output in bag. Changed drainage bag at the bedside Objective Data Vital Signs Vital Signs: Vital Signs - 24 hr 10/05/22 16:00 10/05/22 18:30 10/05/22 20:00 Temperature 97.2 F L Pulse Rate 64 64 Respiratory Rate 16 16 Blood Pressure 180/100 H 170/98 H Pulse Oximetry 100 100 Oxygen Delivery Room Air 10/05/22 20:25 10/05/22 23:58 10/06/22 05:51 Temperature 97.0 F L 97.3 F L 97.4 F L Pulse Rate 78 68 66 Respiratory Rate 16 16 16 Blood Pressure 155/92 H 166/92 H 143/82 H Pulse Oximetry 100 99 100 Oxygen Delivery 10/06/22 09:52 10/06/22 08:50 Temperature 97.4 F L Pulse Rate 77 Respiratory Rate 16 Blood Pressure 141/77 H Pulse Oximetry 100 Oxygen Delivery Room Air Intake/Output Intake/Output: Intake & Output 10/03/22 10/04/22 10/05/22 10/06/22 23:59 23:59 23:59 23:59 Intake Total 50 2520 790 Balance 50 2520 790 Meds/Results Medications: Active Medications Generic Name Dose Route Start Last Admin Trade Name Freq PRN Reason Stop Dose Admin Acetaminophen 650 mg 10/04/22 23:22 Acetaminophen 325 Mg Tablet PO Q6H PRN Mild Pain (1-3) or Fever Hydrocodone Bitart/Acetaminophen 1 tab 10/04/22 23:22 10/05/22 13:49 Hydrocodone/Acetaminophen (*Crx) 5-325 Mg Tablet PO 1 tab Q6H PRN Administration Pain Rated 4-6 Hydrocodone Bitart/Acetaminophen 1 tab 10/05/22 13:24 Hydrocodone/Acetaminophen (*Crx) 10-325 Mg Tablet PO Q6H PRN Pain Rated 7-10 Dicyclomine HCl
[2022-10-06 14:58] VITALS: BP 146/96; PULSE 71; RESP 16; TEMP 36.3; O2SAT 100
[2022-10-06] MEDS: ACETAMINOPHEN 325 MG TABLET 650 MG PO (17:26)
[2022-10-06 20:00] VITALS: PULSE 78; RESP 18; O2SAT 100
[2022-10-06 22:00] VITALS: BP 150/98; PULSE 78; RESP 18; TEMP 36.5; O2SAT 100
[2022-10-07] MEDS: KETOROLAC 15 MG/ML VIAL (*BKC) IV PUSH ×2 (04:18→20:06)
[2022-10-07 06:00] VITALS: BP 150/98; PULSE 78; RESP 18; TEMP 36.5; O2SAT 100
[2022-10-07 06:41] LABS: Basophils Absolute Auto 0.1 K/mm3 (0.0-0.1); Basophils Percent Auto 0.6 % (0.2-1.2); Eosinophils Absolute Auto 0.2 K/mm3 (0-0.3); Eosinophils Percent Auto 1.7 % (0-4.4); Hematocrit 34.5 % (37.0-47.0); Hemoglobin 11.5 g/dL (12.0-15.0); Immature Granulocyte Absolute 0.04 K/mm3 (0.00-0.031); Immature Granulocyte Percent A 0.4 % (0-0.5); Lymphocytes Absolute Auto 1.59 K/mm3 (0.9-3.2); Lymphocytes Percent Auto 15.8 % (18.3-44.2); Mean Corpuscular HGB Conc 33.3 g/dl (32-36); Mean Corpuscular Hemoglobin 28.1 pg (26-34); Mean Corpuscular Volume 84.4 fl (80-100); Mean Platelet Volume 8.4 fl (7.4-10.4); Monocytes Absolute Auto 0.5 K/mm3 (0.1-0.6); Monocytes Percent Auto 5.1 % (2.6-8.5); Neutrophils Absolute Auto 7.7 K/mm3 (1.3-6.7); Neutrophils Percent Auto 76.4 % (45.5-73.1); Platelet Count Result 712 k/mm3 (150-375); Red Blood Count 4.09 M/mm3 (4.2-5.4); Red Cell Distribution Width 15.6 % (11.5-14.5)
[2022-10-07 06:57] LABS: Alanine Aminotransferase 26 U/L (6-35); Albumin Level 4.5 g/dL (3.5-5.1); Alkaline Phosphatase 97 U/L (38-126); Anion Gap 8 mmol/L (8-16); Aspartate Amino Transferase 23 U/L (14-36); Bilirubin,Total 0.7 mg/dL (0.2-1.3); Blood Urea Nitrogen 4 mg/dL (7-17); Calcium 9.4 mg/dL (8.4-10.2); Carbon Dioxide 31 mmol/L (22-30); Chloride 98 mmol/L (98-107); Estimated CRCL calculation 80 ml/min; Estimated Glomerular Filt Rate > 60; Glucose 103 mg/dL (65-110); Potassium 2.9 mmol/L (3.4-5.0); Sodium 137 mmol/L (137-145)
[2022-10-07 07:00] VITALS: BP 162/96; PULSE 78; RESP 14; TEMP 36.2; O2SAT 100
[2022-10-07] MEDS: POTASSIUM CHLORIDE 20 MEQ TABLET 40 MEQ PO (09:44)
[2022-10-07] MEDS: amLODIPine BESYLATE 5 MG TABLET 10 MG PO (09:44)
[2022-10-07] MEDS: POTASSIUM CHLORIDE INJ 40 MEQ in SODIUM CHLORIDE 0.9% IV 500 ML 130 MEQ IVPB (09:44)
[2022-10-07] MEDS: SIMETHICONE 80 MG TAB.CHEW PO ×4 (09:45→20:01)
--- NOTE | 2022-10-07 10:00 | PM.IMPN ---
Progress Note: A&P Assessment and Plan (1) Sigmoid diverticulitis: Code(s): K57.32 - Diverticulitis of large intestine without perforation or abscess without bleeding Status: Acute Assessment and Plan: ?CT of the abdomen and pelvis shows Diverticulitis with perisigmoid drain, appendiceal diameter of 9mm without inflammation ?continue IV Zosyn ?general surgery consult ?Pain medications on board ?advanced to full liquids ?Added dicyclomine to help with the abdominal spasms Simethicone add for gas pains Toradol x6 doses Drain removed (2) Hypokalemia: Code(s): E87.6 - Hypokalemia Status: Acute Assessment and Plan: K is 2.9 replace with 40meq of potassium PO and IV once trend potassium Replace as indicated (3) Hypertension: Code(s): I10 - Essential (primary) hypertension Status: Acute Assessment and Plan: blood pressure slightly high at 162/96 Add amlodipine 10mg PO daily no home medications ?continue trend ?most likely elevated due to patient's pain and diverticulitis (4) Normocytic anemia: Code(s): D64.9 - Anemia, unspecified Status: Acute Assessment and Plan: H/H stable at 11.5/34.5 ?continue trend ?Will hold on anemia labs while H/H continues to rise Continue to trend for now Time Spent With Patient Time: 56 minutes Time with patient: Greater than 35 minutes Subjective Date/time seen: 10/07/22 1000 Interval history: 10/07/22 1000 Patient is doing ok. She is denying any chest pain, shortness of breath, nausea, vomiting, diarrhea. She stated that she was able to have a BM last night and that she started her menstrual cycle. She currently denies any chest pain, shortness of breath, nausea, vomiting, diarrhea, constipation, weakness or fatigue. 10/06/22 1215 Patient is lying in bed. Patient stated that she is having some pretty significant pain in her abdomen especially around the drain site. She denies any chest pain, shortness a breath, nausea, vomiting. She did state that when she does get her major abdominal pain which she claims it to be gas she does have a little bit of chest pressure, however it resolves when the pain goes down as well. Patient is tolerating clear liquid diet. General surgery was in talking to the patient as well. 10/05/22 1245 Patient is resting comfortably in bed. Patient stated she is having a little burning sensation especially at the insertion site of the drain. She currently denies any nausea, vomiting diarrhea or constipation. She did state that she was having little smears. She also stated that she feels like she is having a lot of gas. She currently looks okay. Currently rates her pain as a 6. She did state that it is a lot better than when she came in. 10/04/22? 19:15 This is a 47-year-old female with hypertension presented to the emergency department from home for evaluation of abdominal pain. Patient provides the following history. She was discharged from the hospital 5 days ago after a week-long stay in which she was admitted with acute sigmoid diverticulitis with micro perforation. She was started on broad-spectrum antibiotics and she underwent drain placement on 09/27/2022 due to worsening diverticulitis on CT scan. She was discharged with Augmentin and Flagyl and she has had both good and bad days since discharge. Her appetite has not been great though she has been trying to eat in small amounts. She continues to have nausea and occasional episodes of emesis. She continues to have loose stools but not in significant quantities. Occasionally she will notice blood or mucus in the stool. Her pain has been manageable with oxycodone however the last several days it has gotten increasingly worse in the left lower quadrant and after speaking with the surgeon she was told to come back into the emergency department. She still has the drain in pl
--- NOTE | 2022-10-07 12:19 | PM.PNGS ---
Progress Note: A&P Assessment and Plan (1) Diverticulitis of intestine with perforation without abscess: Code(s): K57.80 - Diverticulitis of intestine, part unspecified, with perforation and abscess without bleeding Status: Acute Assessment and Plan: Much improved today. Her abdominal pain has resolved. She is moving her bowels. Will advance to a low fiber diet Perc drain removed by Dr. Bae today at the bedside. Okay from our standpoint to discharge the patient when medically stable. Will plan to switch her to oral antibiotics, likely moxifloxacin on discharge and follow-up with Dr. Bae in the next few weeks (2) Nausea and vomiting: Code(s): R11.2 - Nausea with vomiting, unspecified Status: Acute Assessment and Plan: Resolved. Advance to solid diet (3) Hypokalemia: Code(s): E87.6 - Hypokalemia Status: Acute Assessment and Plan: Continue to monitor and replace as needed. Plan I have discussed the patient's case and plan of care with Dr. Bae. Subjective Subjective Date/Time Seen: 10/07/22 11:19 Patient reports: no new complaints, feels better, pain is less, tolerating liquids well, flatus, bowel movement and afebrile Interval history: Patient feeling much better this morning. Reports tolerating full liquids. She also started passing more flatus and had a BM yesterday evening. Her cramping abdominal pain has subsided. She denies any pain at this time. She denies any nausea or vomiting. Exam Const: General: comfortable and no acute distress Orientation/consciousness: patient oriented x3 GI: Inspection: non-distended and other (perc drain with no output) GI Palp: Yes Soft to palpation, No Tenderness to palpation present (GI), No Guarding due to palpation present (GI) and No Rebound tenderness present Auscultation: normal bowel sounds Objective Data Vital Signs Vital Signs: Vital Signs - 24 hr 10/06/22 14:58 10/06/22 22:00 10/06/22 20:00 Temperature 97.3 F L 97.7 F Pulse Rate 71 78 78 Respiratory Rate 16 18 18 Blood Pressure 146/96 H 150/98 H Pulse Oximetry 100 100 100 Oxygen Delivery Room Air 10/07/22 06:00 10/07/22 07:00 10/07/22 08:00 Temperature 97.7 F 97.1 F L Pulse Rate 78 78 Respiratory Rate 18 14 Blood Pressure 150/98 H 162/96 H Pulse Oximetry 100 100 Oxygen Delivery Room Air Intake/Output Intake/Output: Intake & Output 10/04/22 10/05/22 10/06/22 10/07/22 23:59 23:59 23:59 23:59 Intake Total 50 2520 1660 50 Output Total 0 Balance 50 2520 1660 50 Meds/Results Medications: Active Medications Generic Name Dose Route Start Last Admin Trade Name Freq PRN Reason Stop Dose Admin Acetaminophen 650 mg 10/04/22 23:22 10/06/22 17:26 Acetaminophen 325 Mg Tablet PO 650 mg Q6H PRN Administration Mild Pain (1-3) or Fever Hydrocodone Bitart/Acetaminophen 1 tab 10/04/22 23:22 10/05/22 13:49 Hydrocodone/Acetaminophen (*Crx) 5-325 Mg Tablet PO 1 tab Q6H PRN Administration Pain Rated 4-6 Hydrocodone Bitart/Acetaminophen 1 tab 10/05/22 13:24 Hydrocodone/Acetaminophen (*Crx) 10-325 Mg Tablet PO Q6H PRN Pain Rated 7-10 Amlodipine Besylate 10 mg 10/07/22 09:00 10/07/22 09:44 Amlodipine Besylate 5 Mg Tablet PO 10 mg QAM MICHOACANO Administration Dicyclomine HCl 20 mg 10/05/22 14:32 10/06/22 08:50 Dicyclomine Hcl 10 Mg Capsule PO 20 mg QID PRN Administration Abdominal Cramping Piperacillin/Tazobactam/Dextrose 3.375 gm in 50 mls @ 100 mls/hr 10/07/22 03:00 10/07/22 09:47 Zosyn 3.375 Gm/D5w 50ml Pm IVPB 100 mls/hr Q6H MICHOACANO Administration Potassium Chloride 40 meq/ 520 mls @ 130 mls/hr 10/07/22 08:39 10/07/22 09:44 Sodium Chloride IVPB 10/07/22 12:38 130 mls/hr ONCE ONE Administration Ketorolac Tromethamine 15 mg 10/06/22 09:24 10/07/22 04:18 Ketorolac 15 Mg/Ml Vial (*Bkc) IV PUSH 15 mg Q6H PRN Administration
[2022-10-07] MEDS: HYDROcodone/acetaminophen (*CRX) 10-325 MG TABLET 1 TAB PO (12:31)
--- NOTE | 2022-10-07 13:56 | PM.DS ---
DS: Admitting Diagnosis Discharge Date 10/07/22 Admitting Diagnosis Hypokalemia, sigmoid diverticulitis DS: Discharge Diagnosis Discharge Diagnosis (1) Sigmoid diverticulitis: Code(s): K57.32 - Diverticulitis of large intestine without perforation or abscess without bleeding Status: Acute Assessment and Plan: ?CT of the abdomen and pelvis shows Diverticulitis with perisigmoid drain, appendiceal diameter of 9mm without inflammation ?continue IV Zosyn ?general surgery consult ?Pain medications on board ?advanced to full liquids ?Added dicyclomine to help with the abdominal spasms Simethicone add for gas pains Toradol x6 doses (2) Hypokalemia: Code(s): E87.6 - Hypokalemia Status: Acute Assessment and Plan: K is 2.9 replace with 40meq of potassium PO and IV once trend potassium Replace as indicated (3) Hypertension: Code(s): I10 - Essential (primary) hypertension Status: Acute Assessment and Plan: blood pressure slightly high at 162/96 Add amlodipine 10mg PO daily no home medications ?continue trend ?most likely elevated due to patient's pain and diverticulitis (4) Normocytic anemia: Code(s): D64.9 - Anemia, unspecified Status: Acute Assessment and Plan: H/H stable at 11.5/34.5 ?continue trend ?Will hold on anemia labs while H/H continues to rise Continue to trend for now DS: Summary Hospital Course Hospital Course: Patient is a 47 year old female with a past medical history of hypertension diverticulitis who presented the ED with complaints of abdominal pain. Patient recently been admitted and had a drain placed. Patient stated that her pain started to get worse and was not getting any better at home. CT scan from the 13 showed worsening diverticulitis however the CT scan from this visit showed no residual abscess. Patient was started on Zosyn here. She stated that most of her pain was more of a burning from the drain site. Patient was also having some lower abdominal pain. She stated that her pain has subsided since she has started her period. Potassium was noted to be a little low and patient has been given supplemental potassium. General surgery was consulted has been managing the drain. The drain was putting out very minimal drainage of purulent fluid. Currently patient is stable for discharge per labs and vital signs. Patient denies any current chest pain, shortness a breath, nausea, vomiting, diarrhea or constipation. Blood pressures were noted to be a little bit elevated and patient was started on amlodipine. Since seeing the patient drain has been removed by surgery. Status at Discharge Functional status at discharge: independent ambulation Overall status at discharge: patient is progressing back to baseline Time Spent with Patient Time attestation: Total time spent providing and/or coordinating discharge services: 54 minute Time spent: Greater than 30 minutes Specific discharge activities: Diagnostic testing, chart review, developing a treatment plan, education, care coordination documentation, physical exam, result review Exam Narrative: General: well-nourished, well-appearing 47-year-old female, sitting up in bed, comfortable, NARD Neuro: awake, alert and oriented x4, speech clear, no focal neuro deficits noted HEENMT: normocephalic, atraumatic, EOMI, sclerae anicteric, moist oral mucosa Respiratory: Clear to auscultation bilaterally without crackles, rhonchi or wheezes, nonlabored breathing Cardio: regular rate, regular rhythm with S1-S2 Abdomen: nondistended, normoactive bowel sounds, soft, nontender to palpation, drain present on the left side between the upper and lower quadrant Extremities: no edema, erythema, or tenderness to palpation, DP pulses 2+ bilaterally Skin: no rashes or lesions, warm and dry Psych: appropriate mood and affect, judgment and insight int
[2022-10-07 14:00] VITALS: BP 146/86; PULSE 95; RESP 12; TEMP 36.2; O2SAT 100
[2022-10-07 20:00] VITALS: PULSE 95; RESP 12; O2SAT 100
[2022-10-07 21:27] LABS: Potassium 3.9 mmol/L (3.4-5.0)
[2022-10-07 22:00] VITALS: BP 147/81; PULSE 85; RESP 14; TEMP 36.2; O2SAT 100
== END 2022-10-07 22:44 | disposition home or self-care (01) ==
LOC: ANHED 19:30 → ANH3MEDSUR 10-05 11:08
PROVIDERS: Nurse Practitioner; Nurse Practitioner Family; Physician Assistant; Admitting Provider Internal Medicine; Emergency Provider Emergency Medicine; Visit Provider Chiropractor
DX: K57.32 Diverticulitis of large intestine without perforation or abscess without bleeding (principal); E87.6 Hypokalemia; I10 Essential (primary) hypertension; D64.9 Anemia, unspecified; Z97.8 Presence of other specified devices; F10.90 Alcohol use, unspecified, uncomplicated; F12.90 Cannabis use, unspecified, uncomplicated; Z79.891 Long term (current) use of opiate analgesic; Z79.899 Other long term (current) drug therapy
CPT/HCPCS: 36415; 74177; 80048; 80053; 81001; 83690; 83735; 84132; 85025; 85027; 96361; 96365; 96366; 96367; 96375; 96376; 99285; A9270; G0378; J1885; J2270; J2405; J2543; J3480; J7030; J7040; Q9967

== ENCOUNTER 2023-05-05 13:07 | Inpatient (IN) | payer OTHER, MEDICAID, SELFPAY ==
--- NOTE | ~2023-05-05 | XR_ITS ---
XR abdomen/kub 1V 05/08/2023 10:59 INDICATION: Abdomen pain TECHNIQUE: KUB COMPARISON: CT dated 05/05/2023 FINDINGS: Bowel gas pattern is normal. Moderate colonic fecal loading. There is no evidence of free a ir, mass, organomegaly, ascites or obstruction. No abnormal calculi are seen. The bones appear inta ct. IMPRESSION: 1: No acute abdominal abnormality identified. Reviewed, dictated and finalized at location A.
--- NOTE | ~2023-05-05 | CT_ITS ---
EXAMINATION: CT abdomen pelvis w con DATE: 05/05/2023 17:46 INDICATION: Left lower quadrant abdominal pain, tenderness. Nausea, vomiting, diarrhea. History of di verticulitis. TECHNIQUE: Computed tomography (CT) of the abdomen and pelvis was performed with 100 CC Omnipaque 350 intravenous contrast. Automated exposure control and iterative reconstruction technique were employe d. Exam dose: 279.54 mGy-cm total exam DLP. COMPARISON: October 04, 2022 CT abdomen pelvis: Sigmoid diverticulitis with perisigmoid drain and no residual abscess was reported FINDINGS: The lung bases are clear of infiltrate or consolidation. Normal heart size. No pericardial or pleural effusion. Small sliding hiatal hernia. Multiple scattered small hypoattenuating lesions of the liver, most likely hepatic cysts; the largest measures approximately 8 mm. Status post cholecystectomy. This likely accounts for mild prominence of the intrahepatic and extrahe patic bile ducts. No pancreatic mass lesion, calcification or pancreatic duct dilatation. Normal splenic size. Normal morphology of the adrenal glands. 1.3 cm upper pole right renal cyst. The kidneys are otherwise unremarkable. No urinary tract calculus or hydroureteronephrosis. The uterus and adnexal areas are unremarkable. Normal caliber of the abdominal aorta. No intraperitoneal or retroperitoneal or pelvic mass lesion or adenopathy or ascites. Normal appendix. Mild colonic diverticulosis; no CT evidence of diverticulitis. No bowel obstruction, bowel wall thickening, pneumatosis or intraperitoneal free air. Transitional lumbosacral vertebral sacralization pseudoarthrosis on the left. IMPRESSION: Multiple hepatic probable cysts. Renal cysts Status post cholecystectomy Small sliding hiatal hernia Diverticulosis of the colon; no CT evidence of diverticulitis Normal appendix Reviewed, dictated and finalized at Location A. Reviewed, dictated and finalized at location A.
[2023-05-05 13:09] VITALS: BP 123/101; PULSE 114; RESP 18; TEMP 36.1; O2SAT 100
[2023-05-05 15:16] VITALS: BP 154/86; PULSE 55; RESP 18; TEMP 36.9; O2SAT 100
[2023-05-05 15:55] VITALS: BP 166/96; PULSE 50; RESP 14; O2SAT 100
--- NOTE | 2023-05-05 16:33 | PC.NURSE ---
Patient began vomiting. verbal order from Dr Huitron to give 4mg zofran IV.
--- NOTE | 2023-05-05 16:47 | ED.ABDPAIN ---
HPI - Abdominal Pain General Chief Complaint: Abdominal Pain Stated Complaint: ab pain, n/v Time Seen by Provider: 05/05/23 15:50 History of Present Illness HPI narrative: Patient is a 48-year-old female presenting with abdominal pain. Patient states that for the last several days she has had diffuse abdominal pain that is worse on the left associated with vomiting. States that she has had a bloody nose for 2 days that has completely resolved. No fevers or chills, chest pain, shortness of breath, dysuria. No melena, hematochezia, hematemesis. Related Data Home Medications Medication Instructions Recorded Confirmed No Home Medications 05/05/23 05/05/23 Allergies Allergy/AdvReac Type Severity Reaction Status Date / Time No Known Allergies Allergy Verified 05/05/23 15:52 Review of Systems Review of Systems: All systems reviewed & are unremarkable except as noted in HPI and below PMFSH Past Medical History Medical History (Updated 05/08/23 @ 05:04 by Michell Huitron MD) Diverticulitis of intestine with perforation and abscess (09/2022) Diverticulosis of colon Hypertension Surgical History Surgical History History of ankle surgery History of laparoscopic cholecystectomy History of tubal ligation Family History Family History Other Family history non-contributory Social History Social History Social History: Surrogate medical decision maker: Soheila Gabriel, mother. Code status: Full code. Smoking status: Never smoker Second hand tobacco smoke exposure: No Alcohol intake: former Alcohol use details: Alcohol use in moderation. Substance use: current Substance use type: marijuana Lack of Transportation: No Lack of Food: Never True Current Housing: I Have Housing Concerned About Future Housing: No Difficulty Paying Gas/Electric Bills: No Difficulty Paying for Meds: No Currently Unemployed: No Education: High School Diploma/GED Difficulty w/ Childcare or Family Care: No Occupation/Education: occupation Additional occupation/education comments: Works for [employer] Spiritual care concerns: No Exam Narrative: GENERAL: Well-appearing and in no acute distress. HEAD: Normocephalic, atraumatic. EYES: PERRLA and EOMI. ENT: Nares clear, no rhinorrhea or epistaxis. Mucous membranes moist. NECK: Supple. CHEST: Clear to auscultation. No respiratory distress. HEART: Regular rate and rhythm ABDOMEN: Soft, +LUQ/LLQ tenderness, no guarding or rebound EXTREMITIES: Normal range of motion. No edema. SKIN: Warm, dry, no rash. NEURO: No focal deficits. Alert and oriented x3. PSYCH: Normal mood and affect. Course Vital Signs Vital signs: Vital Signs Temperature 97 F L 05/05/23 13:09 Pulse Rate 114 H 05/05/23 13:09 Respiratory Rate 18 05/05/23 13:09 Blood Pressure 123/101 H 05/05/23 13:09 Pulse Oximetry 100 05/05/23 13:09 Oxygen Delivery Room Air 05/05/23 13:09 Temperature 98 F 05/08/23 03:35 Pulse Rate 63 05/08/23 04:00 Respiratory Rate 16 05/08/23 03:35 Blood Pressure 151/76 H 05/08/23 03:35 Pulse Oximetry 99 05/08/23 03:35 Oxygen Delivery Room Air 05/07/23 08:00 MDM - Abdominal Pain MDM Narrative Medical decision making narrative: Patient is a 48-year-old female presenting with abdominal pain and vomiting. Vital stable. Exam remarkable for the above. Blood work is unremarkable. CT abdomen pelvis shows no acute abnormalities. Patient continues to vomit despite IV Zofran and Reglan. EKG obtained prior to giving another QT prolonging medication and unfortunately it does show a prolonged QTc. Feel the patient would benefit from observation overnight as well as IV hydration. I spoke with the hospitalist who has accepted her for admission. Patient is agreeable wit
[2023-05-05 16:58] LABS: Basophils Absolute Auto 0.1 K/mm3 (0.0-0.1); Basophils Percent Auto 0.9 % (0.2-1.2); Hemoglobin 13.4 g/dL (12.0-15.0); Immature Granulocyte Absolute 0.02 K/mm3 (0.00-0.031); Immature Granulocyte Percent A 0.4 % (0-0.5); Lymphocytes Percent Auto 8.8 % (18.3-44.2); Mean Corpuscular HGB Conc 33.5 g/dl (32-36); Mean Corpuscular Hemoglobin 28.9 pg (26-34); Mean Corpuscular Volume 86.2 fl (80-100); Mean Platelet Volume 9.8 fl (7.4-10.4); Monocytes Absolute Auto 0.5 K/mm3 (0.1-0.6); Monocytes Percent Auto 7.9 % (2.6-8.5); Neutrophils Absolute Auto 4.7 K/mm3 (1.3-6.7); Platelet Count Result 346 k/mm3 (150-375); Red Blood Count 4.64 M/mm3 (4.2-5.4); Red Cell Distribution Width 14.6 % (11.5-14.5); White Blood Count 5.7 K/mm3 (4.5-10.0)
[2023-05-05 17:11] LABS: Alanine Aminotransferase 42 U/L (6-35); Albumin Level 5.2 g/dL (3.5-5.1); Alkaline Phosphatase 77 U/L (38-126); Anion Gap 12 mmol/L (8-16); Aspartate Amino Transferase 66 U/L (14-36); Blood Urea Nitrogen 13 mg/dL (7-17); Calcium 10.4 mg/dL (8.4-10.2); Carbon Dioxide 29 mmol/L (22-30); Chloride 101 mmol/L (98-107); Estimated CRCL calculation 77 ml/min; Estimated Glomerular Filt Rate > 60; Glucose 138 mg/dL (65-110); Lipase 44 U/L (23-300); Potassium 3.6 mmol/L (3.4-5.0); Sodium 142 mmol/L (137-145)
[2023-05-05 17:12] LABS: INR 0.9; Prothrombin Time 12.8 Seconds (11.1-14.7)
[2023-05-05 17:13] LABS: Partial Thromboplastin Time 24.9 SECONDS (22.3-36.8)
[2023-05-05] MEDS: SODIUM CHLORIDE 0.9% IV 1,000 ML 999 ML IV CONT (17:14)
[2023-05-05] MEDS: ONDANSETRON INJ 4 MG/2 ML VIAL IV PUSH (17:14)
[2023-05-05] MEDS: HYDROmorphone HCL INJ (*CRX) 1 MG/ML SYR 0.5 MG IV PUSH (17:20)
[2023-05-05] MEDS: METOCLOPRAMIDE HCL INJ 10 MG/2 ML VIAL IV PUSH (17:49)
[2023-05-05 18:30] VITALS: BP 158/90; PULSE 51; RESP 20; O2SAT 100
--- NOTE | 2023-05-05 19:38 | ECG_ITS ---
Measurements Intervals [place] Rate: 47 P: 46 [place]: 154 QRS: 52 QRSD: 103 T: 57 QT: 553 QTc: 493 Interpretive Statements SINUS BRADYCARDIA WITH SINUS ARRHYTHMIA PROLONGED QT INTERVAL ABNORMAL ECG NO PREVIOUS ECG AVAILABLE FOR COMPARISON Electronically Signed On 05-06-2023 6:17:15 CDT by Víctor Simon D.O.
--- NOTE | 2023-05-05 23:18 | PM.IMHP ---
H&P: HPI History of Present Illness Date/Time: 05/05/23 23:18 Chief Complaint: patient came to the ER for evaluation for her abdominal pain associated with nausea and vomiting Narrative: She is a 48 years old Afro[place] female who is here today for evaluation of her abdominal pain. She states that for last few days she is having diffuse abdominal pain which is worse on the left associated with nausea and vomiting. she also complains of patient nose for 2 days which has resolved. Workup was done in the ED including CT scan of the abdomen which was within acceptable limits. She is also requesting multiple pain meds. EKG was done which showed prolonged QT interval of 553. She has been given IV hydration and is being placed under observation for medical monitoring, close management and repeat EKG in am. Review of Systems Review of Systems: she denies any chest pain palpitations fever rigor chills dizziness loss of consciousness All systems reviewed & are unremarkable except as noted in HPI and below PMFSH Past Medical History Medical History (Updated 05/06/23 @ 02:00 by Marcelino Garcia MD) Diverticulitis of intestine with perforation and abscess (09/2022) Diverticulosis of colon Hypertension Surgical History Surgical History History of ankle surgery History of laparoscopic cholecystectomy History of tubal ligation Family History Family History Other Family history non-contributory Social History Social History Social History: Surrogate medical decision maker: Soheila Gabriel, mother. Code status: Full code. Smoking status: Never smoker Second hand tobacco smoke exposure: No Alcohol intake: former Alcohol use details: Alcohol use in moderation. Substance use: current Substance use type: marijuana Lack of Transportation: No Lack of Food: Never True Current Housing: I Have Housing Concerned About Future Housing: No Difficulty Paying Gas/Electric Bills: No Difficulty Paying for Meds: No Currently Unemployed: No Education: High School Diploma/GED Difficulty w/ Childcare or Family Care: No Occupation/Education: occupation Additional occupation/education comments: Works for [employer] Spiritual care concerns: No Meds Home Medications and Allergies Home Medications Medication Instructions Recorded Confirmed Type No Home Medications 05/05/23 05/05/23 History Allergies Allergy/AdvReac Type Severity Reaction Status Date / Time No Known Allergies Allergy Verified 05/05/23 15:52 Vital Signs Vital Signs - 24 hr 05/05/23 13:09 05/05/23 15:16 05/05/23 15:55 Temperature 36.1 C L 36.9 C Pulse Rate 114 H 55 L 50 L Respiratory Rate 18 18 14 Blood Pressure 123/101 H 154/86 H 166/96 H Pulse Oximetry 100 100 100 Oxygen Delivery Room Air 05/05/23 18:30 Temperature Pulse Rate 51 L Respiratory Rate 20 Blood Pressure 158/90 H Pulse Oximetry 100 Oxygen Delivery Exam Narrative: PHYSICAL EXAMINATION: Vital signs: Please see the chart General physical exam: patient feels weak and tired, she is asking for multiple pain meds, appears emotional Head/eyes: Atraumatic, EOMI, PERRLA ENT: Moist mucous membranes, nasal passages clear Neck: Supple, full range of motion, trachea midline CVS: S1 + S2, regular rate and rhythm, no murmurs Respiratory: Bilaterally fair air entry in both lung chavira, mild B/L crackles, symmetric chest expansion, no distress Abdomen: Soft, mild abdominal tenderness on deep palpation, bowel sounds +ve, no organomegaly Extremities: No clubbing, no cyanosis, no edema, no calf tenderness Musculoskeletal: Moves all, adequate range of motion, no muscle spasms Skin: Warm, dry, no jaundice, no cyanosis Neurological: Awake, alert, oriented x 3, cranial nerves II-XII intact, no focal
--- NOTE | 2023-05-05 23:45 | ADMGEN ---
This patient, Kiki Gabriel, was admitted to Medical Room 250-01. Patient/family oriented to hospital policies and general routines including ID bracelet, bed and alarms, visiting hours, pain management, procedures, bathroom and other care routines, personal items, smoking policy, room service/diet, and visiting hours. Information on how to activate the Rapid Response Team has been discussed. Patient/Family are encouraged to report perceived risks to care and to ask questions if they do not understand what they are told or what they should do.
[2023-05-05 23:46] VITALS: BMI 27.3
[2023-05-06] VITALS (11 sets, daily range): BP systolic 133–182; BP diastolic 71–91; PULSE 47–76; RESP 16–20; TEMP 35.9–37; O2SAT 99–100
[2023-05-06 00:16] LABS: Appearance Urine Clear (Clear); Bacteria Urine None Seen /hpf; Bilirubin Urine Negative (Negative); Blood Urine Trace (Negative); Color Urine Yellow (Yellow); Glucose Urine UA Negative (Negative); Ketones Urine 2+ mg/dL (Negative); Leukocyte Esterase Ur Negative LEU/UL (Negative); Nitrate Urine Negative (Negative); Non Pathogenic Casts 0-2; Protein Urine 2+ mg/dL (Negative); RBC Urine 0-2 /hpf (0-2); Specific Grav Ur 1.048 (1.001-1.035); Squamous Epithelial Cell Urine None seen /hpf (Few); WBC Urine 0-5 /hpf; pH Urine 5.5 (5.0-9.0)
[2023-05-06 00:17] LABS: Add Urine Microscopic? YES
--- NOTE | 2023-05-06 00:36 | PC.NURSE ---
patient refused to wrap IV site and wear the service learning coordinator while in the shower. Patient stated fuck you I want a new nurse and stated that if she doesn't get medication she wants she will sit in the shower all night for pain relief. Charge nurse and [employer] Continuous Process were made aware of the situtation.
--- NOTE | 2023-05-06 01:04 | PC.NURSE ---
Patient refuses to wear telemetry despite explanation of the possible risks involved.
--- NOTE | 2023-05-06 01:19 | PC.NURSE ---
Pt keeps going into the shower and taking off her heart monitor. Spoke to pt about needing to keep her heart monitor on. Pt continues to take it off and get into the shower.
--- NOTE | 2023-05-06 01:22 | PC.NURSE ---
Patient continues to remove telemetry when entering the shower.
[2023-05-06] MEDS: LORazepam INJ (*CRX) 2 MG/ML VIAL 0.5 MG IV PUSH (02:00)
[2023-05-06] MEDS: SODIUM CHLORIDE 0.9% IV 1,000 ML 100 ML IV CONT ×2 (02:06→16:40)
--- NOTE | 2023-05-06 03:27 | PC.NURSE ---
patient removed telemetry leads again to get in the shower despite being given a water proof bag to place the box in and keep within the shower.
--- NOTE | 2023-05-06 03:29 | PC.NURSE ---
Pt disconnected her IV and removed her heart monitor again went into the shower. Multiple conversation have taken place about the need for the heart monitor but pt continues to remove it. Pt is alert and oriented.
--- NOTE | 2023-05-06 03:54 | PC.NURSE ---
Pt still in the shower. Waiting for patient to get out of the shower to reconnect tele, IV fluids and to give her medication.
--- NOTE | 2023-05-06 04:17 | PC.NURSE ---
Tele reapplied and IV fluids restarted. Pt refused all po medication.
--- NOTE | 2023-05-06 04:27 | PC.NURSE ---
patient removed telemetry leads and disconnected the IV infusion to get in the shower despite repeated conversations warning her about safety and providing care.
--- NOTE | 2023-05-06 04:28 | PC.NURSE ---
Pt went into the shower again and removed the tele and had RN remove the fluids. RN spoke with Dr Garcia stated that he was not going to order any more medication at this time. Pt aware.
[2023-05-06 06:05] LABS: Basophils Percent Auto 0.2 % (0.2-1.2); Hematocrit 36.7 % (37.0-47.0); Hemoglobin 12.5 g/dL (12.0-15.0); Immature Granulocyte Absolute 0.01 K/mm3 (0.00-0.031); Immature Granulocyte Percent A 0.2 % (0-0.5); Lymphocytes Percent Auto 12.1 % (18.3-44.2); Mean Corpuscular HGB Conc 34.1 g/dl (32-36); Mean Corpuscular Hemoglobin 28.4 pg (26-34); Mean Corpuscular Volume 83.4 fl (80-100); Mean Platelet Volume 9.3 fl (7.4-10.4); Monocytes Absolute Auto 0.5 K/mm3 (0.1-0.6); Monocytes Percent Auto 8.3 % (2.6-8.5); Neutrophils Absolute Auto 4.6 K/mm3 (1.3-6.7); Neutrophils Percent Auto 79.2 % (45.5-73.1); Platelet Count Result 312 k/mm3 (150-375); Red Cell Distribution Width 13.7 % (11.5-14.5); White Blood Count 5.8 K/mm3 (4.5-10.0)
[2023-05-06 06:22] LABS: Alanine Aminotransferase 39 U/L (6-35); Albumin Level 4.9 g/dL (3.5-5.1); Alkaline Phosphatase 70 U/L (38-126); Anion Gap 12 mmol/L (8-16); Aspartate Amino Transferase 42 U/L (14-36); Bilirubin,Total 0.5 mg/dL (0.2-1.3); Blood Urea Nitrogen 13 mg/dL (7-17); Calcium 9.4 mg/dL (8.4-10.2); Carbon Dioxide 29 mmol/L (22-30); Chloride 99 mmol/L (98-107); Estimated CRCL calculation 77 ml/min; Estimated Glomerular Filt Rate > 60; Glucose 120 mg/dL (65-110); Magnesium 2.1 mg/dL (1.6-2.3); Phosphorus 4.3 mg/dL (2.5-4.5); Potassium 2.9 mmol/L (3.4-5.0); Sodium 140 mmol/L (137-145)
--- NOTE | 2023-05-06 07:00 | ECG_ITS ---
Measurements Intervals [place] Rate: 56 P: 56 [place]: 160 QRS: 59 QRSD: 97 T: 63 QT: 495 QTc: 478 Interpretive Statements SINUS BRADYCARDIA PROLONGED QT INTERVAL ABNORMAL ECG COMPARED TO ECG 05/05/2023 19:45:42 HEART RATE HAS INCREASED Electronically Signed On 05-06-2023 10:59:30 CDT by Víctor Simon D.O.
--- NOTE | 2023-05-06 07:09 | PM.IMPN ---
Progress Note: A&P Assessment and Plan (1) Hypertension: Code(s): I10 - Essential (primary) hypertension Status: Acute Assessment and Plan: Not currently on any home medications. Last admission in 09/2022 our hospitalist team started her on amlodipine 10 mg at discharge but it appears she has not been taking it. Blood pressures reviewed. SBP 180-140's/70-80's Unclear if she follows with a PCP, will ask during rounds. (2) Nausea and vomiting: Code(s): R11.2 - Nausea with vomiting, unspecified Status: Acute Assessment and Plan: No emesis documented overnight Unable to give most anti-emetics due to her prolonged QTc Gave 1 time ativan for nausea IM tigan every 6 hours as needed for N/V Currently full liquid diet. Can advance to regular diet at lunch if she tolerates breakfast. (3) Abdominal pain: Code(s): R10.9 - Unspecified abdominal pain Status: Acute Assessment and Plan: Unclear etiology Has a history of diverticulitis but CT of her abdomen did not demonstrate that this admission. CT shows multiple hepatic probable cysts and renal cysts, normal appendix, diverticulosis, and small sliding hiatal hernia. There were concerns for drug seeking behaviors per silver designer note as patient was requesting multiple different pain medications. She received morphine and Dilaudid in the ED. Currently Tylenol is ordered for pain, added toradol (4) QT prolongation: Code(s): R94.31 - Abnormal electrocardiogram [ECG] [EKG] Status: Acute Assessment and Plan: EKG 05/05 sinus bradycardia iwth sinus arrhythmia Prolonged QT interval 553, QTc 493 Repeat EKG this morning. Subjective Date/time seen: 05/06/23 07:10 Interval history: HPI obtained from the chart, Chief Complaint: Patient came to the ER for evaluation for her abdominal pain associated with nausea and vomiting Narrative: She is a 48 years old? Afro-[place] female who is here today for evaluation of her abdominal pain.? She states that for last few days she is having diffuse abdominal pain which is worse on the left associated with nausea and vomiting. ? she also complains of patient nose for 2 days which has resolved. Workup was done in the ED including CT scan of the abdomen which was within acceptable limits.? She is also requesting multiple pain meds. ? EKG was done which showed prolonged QT interval of 553.? She has been given IV hydration and is being? placed under observation for medical monitoring, close management and repeat EKG in am. Interval history: 05/06-Provider was contacted by the nursing needle process felt goods supervisor about patient being in the shower all night and into the morning. She is refusing to leave the shower because she is nauseated and having pain. I ordered Toradol and Ativan 1 x. Patient was seen this afternoon and she is asleep in bed. She does not wake for my exam. Review of Systems Review of Systems: All systems reviewed & are unremarkable except as noted in HPI and below Exam Narrative: General: asleep, well nourished, appears stated age. HEENT: normocephalic, atraumatic. Mucous membranes moist. EOMI, PERRLA, bilateral sclera anicteric, no conjunctival injection. Neck supple without JVD, lymphadenopathy, or bruit. Respiratory: clear to auscultation bilaterally. No rales/rhonic/wheezes. Cardiovascular: Regular rate and rhythm, normal S1-S2 upon auscultation. No murmurs, rubs, or clicks. PMI is nondisplaced, capillary re-fill less than 3 second. Abdomen: Extremities: No cyanosis, clubbing, or edema present. Pulses are palpable 2/2. Active ROM to all four extremities. Neuro: Asleep, unable to complete Skin: Warm, dry, and intact, without rash, erythema, or lesion. Lines: PIV Incisions: N/A Psych: asleep, deferred Exam was not able to be completed in its entirety due to patient being asleep from IV ativan. Objective Data Vital Signs Vital Signs: Vital Signs - 24 hr 0
--- NOTE | 2023-05-06 10:25 | PC.NURSE ---
Patients RN called this slot shift supervisor to discuss patients care. This RN spoke with Marleny the patients provider about her compalints about pain and nausea as well as refusing fluids and telementry monitoring. This RN spoke with patient about need for telementry montioring due to high QTC interval as well as discussed the limitations of some medications due to the impact of QTC. Patient asking for toradol for pain stating it has helped in the past. Spoke with provider Marleny about this who entered medications to address patients complaints of both nausea and pain. See MAR. Pt still refusing telementry monitoring at this time. Patients nurse updated.
[2023-05-06] MEDS: POTASSIUM CHLORIDE 20 MEQ ER TABLET 40 MEQ PO (11:13)
[2023-05-06] MEDS: KETOROLAC 30 MG/ML VIAL (*BKC) IV PUSH (11:14)
[2023-05-06] MEDS: LORazepam INJ (*CRX) 2 MG/ML VIAL IV PUSH (11:15)
[2023-05-06] MEDS: LIDOCAINE HCL 1% LOCAL INJ 2 ML AMPUL 5 ML INFILTRATE (14:25)
--- NOTE | 2023-05-06 19:31 | PC.NURSE ---
Patient intermittently wore telemetry throughout day. Multiple education attempts made for importance of use.
[2023-05-06] MEDS: KETOROLAC 30 MG/ML VIAL (*BKC) 15 MG IV PUSH (20:11)
[2023-05-06] MEDS: SALINE LOCK FLUSH 10 ML IV PUSH (20:13)
[2023-05-07] VITALS: BP 159/68; PULSE 50; PULSE 63; RESP 20; TEMP 37.2; O2SAT 100
[2023-05-07] MEDS: LORazepam INJ (*CRX) 2 MG/ML VIAL 1 MG IV PUSH ×2 (00:13→23:46)
[2023-05-07 04:00] VITALS: BP 159/85; PULSE 59; PULSE 60; RESP 20; TEMP 36.6; O2SAT 100
[2023-05-07] MEDS: SALINE LOCK FLUSH 10 ML IV PUSH ×3 (05:16→21:25)
--- NOTE | 2023-05-07 06:55 | PM.IMPN ---
Progress Note: A&P Assessment and Plan (1) Hypertension: Code(s): I10 - Essential (primary) hypertension Status: Acute Assessment and Plan: Not currently on any home medications. Last admission in 09/2022 our hospitalist team started her on amlodipine 10 mg at discharge but it appears she has not been taking it. Adding amlodipine 5 mg PO daily while inpatient Blood pressures reviewed. SBP 180-140's/70-80's Unclear if she follows with a PCP, will ask during rounds. (2) Nausea and vomiting: Code(s): R11.2 - Nausea with vomiting, unspecified Status: Acute Assessment and Plan: Current marijuana user--may be cyclic vomiting syndrome No emesis documented overnight Unable to give most anti-emetics due to her prolonged QTc Gave 1 time ativan for nausea IM tigan every 6 hours as needed for N/V Currently full liquid diet. Yesterday, 05/06 she had at least two episodes of vomiting that were known. Her potassium is low again today. Replace with 40 meq PO K+ and 40 meq K+ IV. Repeat K+ level at 1400. (3) Abdominal pain: Code(s): R10.9 - Unspecified abdominal pain Status: Acute Assessment and Plan: Unclear etiology Has a history of diverticulitis but CT of her abdomen did not demonstrate that this admission. CT shows multiple hepatic probable cysts and renal cysts, normal appendix, diverticulosis, and small sliding hiatal hernia. There were concerns for drug seeking behaviors per gis physical scientist note as patient was requesting multiple different pain medications. She received morphine and Dilaudid in the ED. Currently Tylenol is ordered for pain, added Toradol Slow downtrend of Hbg 13.4->12.5->11.2 today She reports coffee ground emesis. Added IV Protonix BID. Consulted GI today. Recommendations are appreciated. (4) QT prolongation: Code(s): R94.31 - Abnormal electrocardiogram [ECG] [EKG] Status: Acute Assessment and Plan: EKG 05/05 sinus bradycardia with sinus arrhythmia Prolonged QT interval 553, QTc 493 Repeat EKG on 05/06 with resolution of prolonged interval EKG 05/07 with SB and continued resolution of prolonged QT interval Plan Feeding:Full liquid diet Analgesia:Tylenol and Toradol Thromboembolic prophylaxis: SCDs Ulcer prophylaxis: Protonix BID Glycemic control: N/A Bowel regimen: N/A Lines: PIV Antibiotics: N/A Change IV fluids to LR at 100 ml per hour Replace electrolytes and recheck BMP this afternoon Monitor emesis for coffee grounds/renato blood Added Compazine for nausea now that QT has resolved. Add protonix BID for epigastric pain GI consult Subjective Date/time seen: 05/07/23 06:55 Interval history: HPI obtained from the chart, Chief Complaint: Patient came to the ER for evaluation for her abdominal pain associated with nausea and vomiting Narrative: She is a 48 years old? Afro-[place] female who is here today for evaluation of her abdominal pain.? She states that for last few days she is having diffuse abdominal pain which is worse on the left associated with nausea and vomiting. ? she also complains of patient nose for 2 days which has resolved. Workup was done in the ED including CT scan of the abdomen which was within acceptable limits.? She is also requesting multiple pain meds. ? EKG was done which showed prolonged QT interval of 553.? She has been given IV hydration and is being? placed under observation for medical monitoring, close management and repeat EKG in am. Interval history: 05/06-Provider was contacted by the nursing bakery machine mechanic supervisor about patient being in the shower all night and into the morning. She is refusing to leave the shower because she is nauseated and having pain. I ordered Toradol and Ativan 1 x. Patient was seen this afternoon and she is asleep in bed. She does not wake for my exam. 05/07-Provider was called to the bedside for bradycardia on the monitor, HR in the 30's. Patient is seen lying in be
[2023-05-07 08:00] VITALS: BP 151/73; PULSE 58; PULSE 90; RESP 18; TEMP 37; O2SAT 100
[2023-05-07] MEDS: LACTATED RINGERS 1,000 ML 100 ML IV CONT (08:38)
[2023-05-07] MEDS: POTASSIUM CHLORIDE 20 MEQ ER TABLET 40 MEQ PO (08:54)
[2023-05-07] MEDS: amLODIPine BESYLATE 5 MG TABLET PO (08:55)
[2023-05-07] MEDS: KETOROLAC 30 MG/ML VIAL (*BKC) 15 MG IV PUSH ×3 (09:01→21:25)
--- NOTE | 2023-05-07 11:07 | ECG_ITS ---
Measurements Intervals [place] Rate: 51 P: 41 [place]: 148 QRS: 42 QRSD: 98 T: 68 QT: 489 QTc: 454 Interpretive Statements SINUS BRADYCARDIA BORDERLINE ST-T WAVE ABNORMALITY- HIGH LATERAL LEADS BORDERLINE ECG COMPARED TO ECG 05/06/2023 10:34:01 PROLONGED QT INTERVAL NO LONGER PRESENT Electronically Signed On 05-07-2023 14:40:07 CDT by Víctor Simon D.O.
[2023-05-07 11:30] LABS: Basophils Percent Auto 0.5 % (0.2-1.2); Eosinophils Percent Auto 0.2 % (0-4.4); Hematocrit 33.8 % (37.0-47.0); Hemoglobin 11.2 g/dL (12.0-15.0); Immature Granulocyte Absolute 0.01 K/mm3 (0.00-0.031); Immature Granulocyte Percent A 0.2 % (0-0.5); Lymphocytes Percent Auto 30.4 % (18.3-44.2); Mean Corpuscular HGB Conc 33.1 g/dl (32-36); Mean Corpuscular Hemoglobin 28.4 pg (26-34); Mean Corpuscular Volume 85.6 fl (80-100); Monocytes Absolute Auto 0.4 K/mm3 (0.1-0.6); Monocytes Percent Auto 10.1 % (2.6-8.5); Neutrophils Absolute Auto 2.5 K/mm3 (1.3-6.7); Neutrophils Percent Auto 58.6 % (45.5-73.1); Platelet Count Result 251 k/mm3 (150-375); Red Blood Count 3.95 M/mm3 (4.2-5.4); Red Cell Distribution Width 14.2 % (11.5-14.5); White Blood Count 4.3 K/mm3 (4.5-10.0)
[2023-05-07 11:45] LABS: Appearance Urine Cloudy (Clear); Bacteria Urine 1+ /hpf; Bilirubin Urine Negative (Negative); Blood Urine Negative (Negative); Color Urine Yellow (Yellow); Glucose Urine UA Negative (Negative); Ketones Urine 1+ mg/dL (Negative); Leukocyte Esterase Ur Trace LEU/UL (Negative); Mucus Urine Present /lpf; Nitrate Urine Negative (Negative); Protein Urine 1+ mg/dL (Negative); RBC Urine 0-2 /hpf (0-2); Specific Grav Ur 1.017 (1.001-1.035); Squamous Epithelial Cell Urine Moderate /hpf (Few); Urobilinogen Urine 0.2 mg/dL (<2.0); pH Urine 5.5 (5.0-9.0)
[2023-05-07 11:46] LABS: Anion Gap 8 mmol/L (8-16); Blood Urea Nitrogen 14 mg/dL (7-17); Calcium 8.5 mg/dL (8.4-10.2); Carbon Dioxide 30 mmol/L (22-30); Chloride 100 mmol/L (98-107); Estimated CRCL calculation 77 ml/min; Estimated Glomerular Filt Rate > 60; Glucose 99 mg/dL (65-110); Lipase 126 U/L (23-300); Magnesium 2.1 mg/dL (1.6-2.3); Sodium 138 mmol/L (137-145)
[2023-05-07 11:47] LABS: Add Urine Microscopic? YES
[2023-05-07 11:57] LABS: Troponin I < 0.012 ng/mL (0.000-0.034)
[2023-05-07 12:00] VITALS: BP 137/69; PULSE 56; PULSE 62; RESP 20; TEMP 36.8; O2SAT 100
--- NOTE | 2023-05-07 13:30 | PC.NURSE ---
Pt in shower. Pt has been told to not shower without letting a nurse know and that we need to wrap her iv so that it does not get wet. Pt aware that if IV comes out we have to place a new line.
[2023-05-07] MEDS: POTASSIUM CHLORIDE INJ 40 MEQ in SODIUM CHLORIDE 0.9% IV 500 ML 130 MEQ IVPB (14:14)
[2023-05-07] MEDS: PANTOPRAZOLE SODIUM IV 40 MG VIAL IV PUSH ×2 (14:15→21:25)
[2023-05-07 16:00] VITALS: PULSE 53
[2023-05-07 20:00] VITALS: BP 143/87; PULSE 55; PULSE 65; RESP 20; TEMP 36.4; O2SAT 100
[2023-05-07 21:39] LABS: Potassium 3.9 mmol/L (3.4-5.0)
[2023-05-08] VITALS (7 sets, daily range): BP systolic 118–167; BP diastolic 61–88; PULSE 46–73; RESP 6–20; TEMP 36.6–37.2; O2SAT 96–100
[2023-05-08] MEDS: SALINE LOCK FLUSH 10 ML IV PUSH ×3 (05:07→20:53)
[2023-05-08] MEDS: LACTATED RINGERS 1,000 ML 100 ML IV CONT ×2 (05:11→16:11)
--- NOTE | 2023-05-08 06:30 | PM.IMPN ---
Progress Note: A&P Assessment and Plan (1) Hypertension: Code(s): I10 - Essential (primary) hypertension Status: Acute Assessment and Plan: Not currently on any home medications. Last admission in 09/2022 our hospitalist team started her on amlodipine 10 mg at discharge but it appears she has not been taking it. Adding amlodipine 5 mg PO daily while inpatient Blood pressures reviewed. SBP 180-140's/70-80's Unclear if she follows with a PCP, will ask during rounds. (2) Nausea and vomiting: Code(s): R11.2 - Nausea with vomiting, unspecified Status: Acute Assessment and Plan: Current marijuana user--may be cyclic vomiting syndrome No emesis documented overnight Currently full liquid diet. Yesterday, 05/06 she had at least two episodes of vomiting that were known. Her potassium is low again today. Replace with 40 meq PO K+ and 40 meq K+ IV. Repeat K+ level at 1400. QT interval has resolved. Compazine prn for nausea. Patient had 1 episode of vomiting over night per her reports. No bowel movement for a few days. KUB ordered. (3) Abdominal pain: Code(s): R10.9 - Unspecified abdominal pain Status: Acute Assessment and Plan: Unclear etiology Has a history of diverticulitis but CT of her abdomen did not demonstrate that this admission. CT shows multiple hepatic probable cysts and renal cysts, normal appendix, diverticulosis, and small sliding hiatal hernia. There were concerns for drug seeking behaviors per slotter operator note as patient was requesting multiple different pain medications. She received morphine and Dilaudid in the ED. Currently Tylenol is ordered for pain, added Toradol Slow downtrend of Hbg 13.4->12.5->11.2 today She reports coffee ground emesis. Added IV Protonix BID. Consulted GI today. Recommendations are appreciated. (4) QT prolongation: Code(s): R94.31 - Abnormal electrocardiogram [ECG] [EKG] Status: Acute Assessment and Plan: EKG 05/05 sinus bradycardia with sinus arrhythmia Prolonged QT interval 553, QTc 493 Repeat EKG on 05/06 with resolution of prolonged interval EKG 05/07 with SB and continued resolution of prolonged QT interval Suspect it was related to hypokalemia initially. Plan Feeding:Full liquid diet Analgesia:Tylenol and Toradol Thromboembolic prophylaxis: SCDs Ulcer prophylaxis: Protonix BID Glycemic control: N/A Bowel regimen: N/A Lines: PIV Antibiotics: N/A Change IV fluids to LR at 100 ml per hour Monitor emesis for coffee grounds/renato blood Added Compazine for nausea now that QT has resolved. Add protonix BID for epigastric pain GI consult Subjective Date/time seen: 05/08/23 06:30 Interval history: HPI obtained from the chart, Chief Complaint: Patient came to the ER for evaluation for her abdominal pain associated with nausea and vomiting Narrative: She is a 48 years old? Afro-Cam[place] female who is here today for evaluation of her abdominal pain.? She states that for last few days she is having diffuse abdominal pain which is worse on the left associated with nausea and vomiting. ? she also complains of patient nose for 2 days which has resolved. Workup was done in the ED including CT scan of the abdomen which was within acceptable limits.? She is also requesting multiple pain meds. ? EKG was done which showed prolonged QT interval of 553.? She has been given IV hydration and is being? placed under observation for medical monitoring, close management and repeat EKG in am. Interval history: 05/06-Provider was contacted by the nursing decorating supervisor about patient being in the shower all night and into the morning. She is refusing to leave the shower because she is nauseated and having pain. I ordered Toradol and Ativan 1 x. Patient was seen this afternoon and she is asleep in bed. She does not wake for my exam. 05/07-Provider was called to the bedside for bradycardia on the monitor, HR in the
[2023-05-08] MEDS: PANTOPRAZOLE SODIUM IV 40 MG VIAL IV PUSH ×2 (08:18→20:53)
[2023-05-08] MEDS: KETOROLAC 30 MG/ML VIAL (*BKC) 15 MG IV PUSH ×2 (08:18→16:10)
[2023-05-08] MEDS: amLODIPine BESYLATE 5 MG TABLET PO (08:18)
[2023-05-08 09:10] LABS: Eosinophils Percent Auto 0.8 % (0-4.4); Hematocrit 34.6 % (37.0-47.0); Hemoglobin 11.4 g/dL (12.0-15.0); Lymphocytes Absolute Auto 2.02 K/mm3 (0.9-3.2); Lymphocytes Percent Auto 52.9 % (18.3-44.2); Mean Corpuscular HGB Conc 32.9 g/dl (32-36); Mean Platelet Volume 9.1 fl (7.4-10.4); Monocytes Absolute Auto 0.3 K/mm3 (0.1-0.6); Monocytes Percent Auto 8.6 % (2.6-8.5); Neutrophils Absolute Auto 1.4 K/mm3 (1.3-6.7); Neutrophils Percent Auto 36.7 % (45.5-73.1); Platelet Count Result 267 k/mm3 (150-375); Red Blood Count 4.07 M/mm3 (4.2-5.4); Red Cell Distribution Width 13.8 % (11.5-14.5); White Blood Count 3.8 K/mm3 (4.5-10.0)
[2023-05-08 09:17] LABS: Anion Gap 5 mmol/L (8-16); Blood Urea Nitrogen 9 mg/dL (7-17); Calcium 8.7 mg/dL (8.4-10.2); Carbon Dioxide 28 mmol/L (22-30); Chloride 105 mmol/L (98-107); Estimated CRCL calculation 77 ml/min; Estimated Glomerular Filt Rate > 60; Glucose 87 mg/dL (65-110); Lipase 124 U/L (23-300); Magnesium 2.1 mg/dL (1.6-2.3); Potassium 3.6 mmol/L (3.4-5.0); Sodium 138 mmol/L (137-145)
--- NOTE | 2023-05-08 12:20 | WPDGICN ---
Assessment and Plan Assessment and plan (1) Intractable nausea and vomiting: Code(s): R11.2 - Nausea with vomiting, unspecified Status: Acute Assessment and Plan: on medical treatment ? cyclic vomiting, she says that not longer using marihuana egd in am (2) Abdominal pain: Code(s): R10.9 - Unspecified abdominal pain Status: Acute Assessment and Plan: CT scan reviewed (3) Hypertension: Code(s): I10 - Essential (primary) hypertension Status: Acute Assessment and Plan: started on treatment during this hospitalization (4) Weight loss: Code(s): R63.4 - Abnormal weight loss Status: Acute Assessment and Plan: previous admission with complicated diverticulitis she still has not had a colonoscopy, will do one tomorrow (5) Diverticulosis of colon: Code(s): K57.30 - Diverticulosis of large intestine without perforation or abscess without bleeding Status: Acute (6) Hypokalemia: Code(s): E87.6 - Hypokalemia Status: Acute Assessment and Plan: treated GI Consult Note Consult date/time: 05/08/23 12:20 Reason for consult: n/v, abdominal pain, weight loss HPI: Kiki Gabriel is a 48 year old female with history of diverticulitis complicated with microperforation that required percutaneous drainage 09/2022 (never had colonoscopy), also marihuana use (she says that has not used for few months now) and previous hospitalization for recurrent nausea and vomiting. She came to ER with 2 days of diffuse abdominal pain and nausea and vomiting, also had bloody nose. CT scan of the abdomen reviewed, normal appendix, diverticulosis, and small sliding hiatal hernia. She has been requiring pain meds, also taking hot showers because of pain and nausea. Treated for hypokalemia. Review of Systems Constitutional: Constitutional: Denies chills Eyes: Eyes: Denies blurry vision ENT: Reports Normal hearing present Cardiovascular: Cardiovascular: Denies chest pain Respiratory: Respiratory: Denies cough Gastrointestinal: Gastrointestinal: Reports abdominal pain, Reports nausea and Reports vomiting Genitourinary: Genitourinary: Denies hematuria Musculoskeletal: Musculoskeletal: Denies neck pain Integumentary/Breasts: Skin/Breast: Denies rash Neurologic: Denies Abnormal speech present Psychiatric: Psychiatric: Reports anxiety PMFSH Past Medical History Medical History (Updated 05/08/23 @ 12:25 by Mika Torres MD) Diverticulitis of intestine with perforation and abscess (09/2022) Diverticulosis of colon Hypertension Weight loss Surgical History Surgical History History of ankle surgery History of laparoscopic cholecystectomy History of tubal ligation Family History Family History Other Family history non-contributory Social History Social History Social History: Surrogate medical decision maker: Soheila Gabriel, mother. Code status: Full code. Smoking status: Never smoker Second hand tobacco smoke exposure: No Alcohol intake: former Alcohol use details: Alcohol use in moderation. Substance use: current Substance use type: marijuana Lack of Transportation: No Lack of Food: Never True Current Housing: I Have Housing Concerned About Future Housing: No Difficulty Paying Gas/Electric Bills: No Difficulty Paying for Meds: No Currently Unemployed: No Education: High School Diploma/GED Difficulty w/ Childcare or Family Care: No Occupation/Education: occupation Additional occupation/education comments: Works for [employer] Spiritual care concerns: No Meds Home Medications and Allergies Home Medications Medication Instructions Recorded Confirmed Type No Home Medications 05/05/23 05/05/23 History Allergi
[2023-05-08] MEDS: BISACODYL 5 MG TABLET EC 20 MG PO (16:10)
[2023-05-08] MEDS: polyethylene glycoL 3350 238 GM BOTTLE PO (16:10)
[2023-05-08 18:42] LABS: Appearance Urine Clear (Clear); Bilirubin Urine Negative (Negative); Blood Urine Negative (Negative); Color Urine Yellow (Yellow); Glucose Urine UA Negative (Negative); Ketones Urine Negative (Negative); Leukocyte Esterase Ur Negative LEU/UL (NEGATIVE); Nitrate Urine Negative (Negative); Protein Urine Negative (Negative); Specific Grav Ur 1.006 (1.001-1.035)
[2023-05-08 18:44] LABS: Add Urine Microscopic? NO
[2023-05-09] VITALS (9 sets, daily range): BP systolic 132–181; BP diastolic 70–108; PULSE 58–78; RESP 16–22; TEMP 36.1–37.2; O2SAT 99–100
[2023-05-09] MEDS: MAGNESIUM CITRATE 300 ML BTL PO (01:14)
[2023-05-09] MEDS: LORazepam INJ (*CRX) 2 MG/ML VIAL 1 MG IV PUSH (01:14)
[2023-05-09] MEDS: LACTATED RINGERS 1,000 ML 100 ML IV CONT (01:29)
[2023-05-09 05:43] LABS: Eosinophils Absolute Auto 0.1 K/mm3 (0-0.3); Eosinophils Percent Auto 1.6 % (0-4.4); Hematocrit 34.6 % (37.0-47.0); Hemoglobin 11.7 g/dL (12.0-15.0); Immature Granulocyte Absolute 0.01 K/mm3 (0.00-0.031); Immature Granulocyte Percent A 0.3 % (0-0.5); Lymphocytes Absolute Auto 2.01 K/mm3 (0.9-3.2); Lymphocytes Percent Auto 52.1 % (18.3-44.2); Mean Corpuscular HGB Conc 33.8 g/dl (32-36); Mean Corpuscular Hemoglobin 28.4 pg (26-34); Mean Platelet Volume 9.1 fl (7.4-10.4); Monocytes Absolute Auto 0.3 K/mm3 (0.1-0.6); Monocytes Percent Auto 7.5 % (2.6-8.5); Neutrophils Absolute Auto 1.5 K/mm3 (1.3-6.7); Neutrophils Percent Auto 37.5 % (45.5-73.1); Platelet Count Result 279 k/mm3 (150-375); Red Blood Count 4.12 M/mm3 (4.2-5.4); Red Cell Distribution Width 13.7 % (11.5-14.5); White Blood Count 3.9 K/mm3 (4.5-10.0)
[2023-05-09 05:52] LABS: Anion Gap 5 mmol/L (8-16); Blood Urea Nitrogen 4 mg/dL (7-17); Calcium 9.1 mg/dL (8.4-10.2); Carbon Dioxide 25 mmol/L (22-30); Chloride 105 mmol/L (98-107); Estimated CRCL calculation 88 ml/min; Estimated Glomerular Filt Rate > 60; Glucose 99 mg/dL (65-110); Magnesium 2.3 mg/dL (1.6-2.3); Potassium 3.5 mmol/L (3.4-5.0); Sodium 135 mmol/L (137-145)
[2023-05-09 06:43] LABS: Platelet Estimate Adequate (Adequate)
[2023-05-09 06:44] LABS: Atypical Lymphocytes Present; Schistocytes None Seen (NORMAL)
--- NOTE | 2023-05-09 06:48 | PM.IMPN ---
Progress Note: A&P Assessment and Plan (1) Hypertension: Code(s): I10 - Essential (primary) hypertension Status: Acute Assessment and Plan: Not currently on any home medications. Last admission in 09/2022 our hospitalist team started her on amlodipine 10 mg at discharge but it appears she has not been taking it. Adding amlodipine 5 mg PO daily while inpatient Blood pressures reviewed. SBP 180-140's/70-80's Unclear if she follows with a PCP, will ask during rounds. (2) Nausea and vomiting: Code(s): R11.2 - Nausea with vomiting, unspecified Status: Acute Assessment and Plan: Current marijuana user--may be cyclic vomiting syndrome No emesis documented overnight Currently full liquid diet. Yesterday, 05/06 she had at least two episodes of vomiting that were known. Her potassium is low again today. Replace with 40 meq PO K+ and 40 meq K+ IV. Repeat K+ level at 1400. QT interval has resolved. Compazine prn for nausea. Patient had 1 episode of vomiting over night per her reports. No bowel movement for a few days. KUB ordered--no acute findings (3) Abdominal pain: Code(s): R10.9 - Unspecified abdominal pain Status: Acute Assessment and Plan: Unclear etiology Has a history of diverticulitis but CT of her abdomen did not demonstrate that this admission. CT shows multiple hepatic probable cysts and renal cysts, normal appendix, diverticulosis, and small sliding hiatal hernia. There were concerns for drug seeking behaviors per price analyst note as patient was requesting multiple different pain medications. She received morphine and Dilaudid in the ED. Currently Tylenol is ordered for pain, added Toradol Slow downtrend of Hbg initially now stabilized 13.4->12.5->11.2-->11..7 today She reports coffee ground emesis. Added IV Protonix BID. Consulted GI and will go for EGD and colonoscopy today 05/09. Hopefully if no acute findings on EGD/colonoscopy she can have a diet and then d/c later today. (4) QT prolongation: Code(s): R94.31 - Abnormal electrocardiogram [ECG] [EKG] Status: Acute Assessment and Plan: EKG 05/05 sinus bradycardia with sinus arrhythmia Prolonged QT interval 553, QTc 493 Repeat EKG on 05/06 with resolution of prolonged interval EKG 05/07 with SB and continued resolution of prolonged QT interval Suspect it was related to hypokalemia initially. Plan Feeding:Full liquid diet Analgesia:Tylenol and Toradol Thromboembolic prophylaxis: SCDs Ulcer prophylaxis: Protonix BID Glycemic control: N/A Bowel regimen: N/A Lines: PIV Antibiotics: N/A Change IV fluids to LR at 100 ml per hour Monitor emesis for coffee grounds/renato blood Added Compazine for nausea now that QT has resolved. Add protonix BID for epigastric pain GI consult Subjective Date/time seen: 05/09/23 06:48 Interval history: HPI obtained from the chart, Chief Complaint: Patient came to the ER for evaluation for her abdominal pain associated with nausea and vomiting Narrative: She is a 48 years old? Afro-Tuvaluan female who is here today for evaluation of her abdominal pain.? She states that for last few days she is having diffuse abdominal pain which is worse on the left associated with nausea and vomiting. ? she also complains of patient nose for 2 days which has resolved. Workup was done in the ED including CT scan of the abdomen which was within acceptable limits.? She is also requesting multiple pain meds. ? EKG was done which showed prolonged QT interval of 553.? She has been given IV hydration and is being? placed under observation for medical monitoring, close management and repeat EKG in am. Interval history: 05/06-Provider was contacted by the nursing foundry supervisor about patient being in the shower all night and into the morning. She is refusing to leave the shower because she is nauseated and having pain. I ordered Toradol and Ativan 1 x. Patient was seen th
[2023-05-09] MEDS: KETOROLAC 30 MG/ML VIAL (*BKC) 15 MG IV PUSH (09:02)
[2023-05-09] MEDS: PANTOPRAZOLE SODIUM IV 40 MG VIAL IV PUSH (09:04)
[2023-05-09] MEDS: LACTATED RINGERS 1,000 ML 150 ML IV CONT (09:36)
--- NOTE | 2023-05-09 09:58 | WPDANESEPPF ---
Anes - Initial Pre Proc Eval Procedure: Operation Date: 05/09/23 14:00 Proposed Procedures p Esophagogastroduodenoscopy & Colonoscopy - Mika Torres MD Date/Time: 05/09/23 09:58 Surgeon: Marcelino Garcia MD Pre Op Diagnosis: prolonged QTc Patient Data Age: 48 Gender: F Height: 1.57 m Weight: 68 kg Last Vital Signs Temp 97.7 F 05/09/23 09:33 Pulse 67 05/09/23 09:33 Resp 18 05/09/23 09:33 BP 156/89 H 05/09/23 09:33 Pulse Ox 100 05/09/23 09:33 O2 Del Method Room Air 05/09/23 09:33 Allergies Allergy/AdvReac Type Severity Reaction Status Date / Time No Known Allergies Allergy Verified 05/05/23 15:52 Home Medications Medication Instructions Recorded Confirmed Type No Home Medications 05/05/23 05/05/23 History Laboratory Tests 05/08/23 05/08/23 05/09/23 08:44 18:11 05:28 WBC 3.8 L K/mm3 3.9 L K/mm3 (4.5-10.0) (4.5-10.0) RBC 4.07 L M/mm3 4.12 L M/mm3 (4.2-5.4) (4.2-5.4) Hgb 11.4 L g/dL 11.7 L g/dL (12.0-15.0) (12.0-15.0) Hct 34.6 L % 34.6 L % (37.0-47.0) (37.0-47.0) MCV 85.0 fl 84.0 fl (80-100) (80-100) MCH 28.0 pg 28.4 pg (26-34) (26-34) MCHC 32.9 g/dl 33.8 g/dl (32-36) (32-36) RDW 13.8 % 13.7 % (11.5-14.5) (11.5-14.5) Plt Count 267 k/mm3 279 k/mm3 (150-375) (150-375) MPV 9.1 fl 9.1 fl (7.4-10.4) (7.4-10.4) Immature Gran % (Auto) 0.0 % 0.3 % (0-0.5) (0-0.5) Neut % (Auto) 36.7 L % 37.5 L % (45.5-73.1) (45.5-73.1) Lymph % (Auto) 52.9 H % 52.1 H % (18.3-44.2) (18.3-44.2) [place] % (Auto) 8.6 H % 7.5 % (2.6-8.5) (2.6-8.5) Eos % (Auto) 0.8 % 1.6 % (0-4.4) (0-4.4) Baso % (Auto) 1.0 % 1.0 % (0.2-1.2) (0.2-1.2) Lymph # (Auto) 2.02 K/mm3 2.01 K/mm3 (0.9-3.2) (0.9-3.2) [place] # (Auto) 0.3 K/mm3 0.3 K/mm3 (0.1-0.6) (0.1-0.6) Eos # (Auto) 0.0 K/mm3 0.1 K/mm3 (0-0.3) (0-0.3) Baso # (Auto) 0.0 K/mm3 0.0 K/mm3 (0.0-0.1) (0.0-0.1) Abs Immat Gran (auto) 0.00 K/mm3 0.01 K/mm3 (0.00-0.031) (0.00-0.031) Absolute Neuts (auto) 1.4 K/mm3 1.5 K/mm3 (1.3-6.7) (1.3-6.7) Absolute Nucleated RBC 0.0 K/mm3 0.0 K/mm3 (0.0-0.012) (0.0-0.012) Nucleated RBC % 0.0 % 0.0 % (0.0-0.2) (0.0-0.2) Atypical Lymphocytes Present Platelet Estimate Adequate (Adequate) Schistocytes None seen (NORMAL) Sodium 135 L mmol/L (137-145) Potassium 3.5 mmol/L (3.4-5.0) Chloride 105 mmol/L (98-107) Carbon Dioxide 25 mmol/L (22-30) Anion Gap 5 L mmol/L (8-16) BUN 4 L D mg/dL (7-17) Creatinine 0.60 L mg/dL (0.7-1.0) Estim Creat Clear Calc 88 ml/min Estimated GFR > 60 (59 - ) Glucose 99 mg/dL (65-110) Calcium 9.1 mg/dL (8.4-10.2) Magnesium 2.3 mg/dL (1.6-2.3) Urine Color Yellow (Yellow) Urine Appearance Clear (Clear) Urine pH 8.0 (5.0-9.0) Ur Specific [place] 1.006 (1.001-1.035) Urine Protein Negative mg/dL (Negative) Urine Glucose (UA) Negative mg/dL (Negative) Urine Ketones Negative mg/dL (Negative) Ur Blood (Man) Negative (Negative) Urine Nitrate Negative (Negative) Urine Bilirubin Negative (Negative) Urine Urobilinogen 1.0 mg/dL (<2.0) Ur Leukocyte Esterase Negative ADI/UL (NEGATIVE) Patient hx anesthesia problems: none Family hx anesthesia problems: none Results Review: All pre-operative results and documents have been reviewed as part of the pre-operative evaluation. [facility] Past Medical History Medical History (Updated 05/08/23 @ 12:25 by Mika Torres MD) Diverticulitis of intestine with perfora
--- NOTE | 2023-05-09 10:03 | SUR.OPER ---
EGD start 1003 end 1007, Colonoscopy start 1011
--- NOTE | 2023-05-09 10:50 | SUR.PHASEII ---
1045-Dr. Patterson notified of pt's BPs. No further orders. Okay to return to the floor.
[2023-05-09] MEDS: amLODIPine BESYLATE 5 MG TABLET PO (11:22)
--- NOTE | 2023-05-09 13:40 | PM.DS ---
DS: Admitting Diagnosis Discharge Date 05/09 Admitting Diagnosis abdominal pain DS: Discharge Diagnosis Discharge Diagnosis (1) Hypertension: Code(s): I10 - Essential (primary) hypertension Status: Acute (2) Nausea and vomiting: Code(s): R11.2 - Nausea with vomiting, unspecified Status: Acute (3) Abdominal pain: Code(s): R10.9 - Unspecified abdominal pain Status: Acute (4) QT prolongation: Code(s): R94.31 - Abnormal electrocardiogram [ECG] [EKG] Status: Acute Plan Assessment and Plan (1) Hypertension: ?Code(s): I10 - Essential (primary) hypertension ?Status:?Acute ?Assessment and Plan: Not currently on any home medications. Last admission in 09/2022 our hospitalist team started her on amlodipine 10 mg at discharge but it appears she has not been taking it. Adding amlodipine 5 mg PO daily while inpatient Blood pressures reviewed. SBP 180-140's/70-80's Unclear if she follows with a PCP, will ask during rounds. (2) Nausea and vomiting: ?Code(s): R11.2 - Nausea with vomiting, unspecified ?Status:?Acute ?Assessment and Plan: Current marijuana user--may be cyclic vomiting syndrome No emesis documented overnight Currently full liquid diet. Yesterday, 05/06 she had at least two episodes of vomiting that were known. Her potassium is low again today. Replace with 40 meq PO K+ and 40 meq K+ IV. Repeat K+ level at 1400. QT interval has resolved. Compazine prn for nausea. Patient had 1 episode of vomiting over night per her reports. No bowel movement for a few days. KUB ordered. (3) Abdominal pain: ?Code(s): R10.9 - Unspecified abdominal pain ?Status:?Acute ?Assessment and Plan: Unclear etiology Has a history of diverticulitis but CT of her abdomen did not demonstrate that this admission. CT shows multiple hepatic probable cysts and renal cysts, normal appendix, diverticulosis, and small sliding hiatal hernia. There were concerns for drug seeking behaviors per glass mould cleaner note as patient was requesting multiple different pain medications. She received morphine and Dilaudid in the ED. Currently Tylenol is ordered for pain, added Toradol Slow downtrend of Hbg 13.4->12.5->11.2 today She reports coffee ground emesis. Added IV Protonix BID. Consulted GI today. Recommendations are appreciated. (4) QT prolongation: ?Code(s): R94.31 - Abnormal electrocardiogram [ECG] [EKG] ?Status:?Acute ?Assessment and Plan: EKG 05/05 sinus bradycardia with sinus arrhythmia Prolonged QT interval 553, QTc 493 Repeat EKG on 05/06 with resolution of prolonged interval EKG 05/07 with SB and continued resolution of prolonged QT interval Suspect it was related to hypokalemia initially. Plan Feeding:Full liquid diet Analgesia:Tylenol and Toradol Thromboembolic prophylaxis: SCDs Ulcer prophylaxis: Protonix BID Glycemic control: N/A Bowel regimen: N/A Lines: PIV Antibiotics: N/A Change IV fluids to LR at 100 ml per hour Monitor emesis for coffee grounds/renato blood Added Compazine for nausea now that QT has resolved. Add protonix BID for epigastric pain GI consult DS: Summary Hospital Course Hospital Course: Interval history: HPI obtained from the chart, Chief Complaint: Patient came to the ER for evaluation for her abdominal pain associated with nausea and vomiting Narrative: She is a 48 years old? Afro-Cuban female who is here today for evaluation of her abdominal pain.? She states that for last few days she is having diffuse abdominal pain which is worse on the left associated with nausea and vomiting. ? she also complains of patient nose for 2 days which has resolved. Workup was done in the ED including CT scan of the abdomen which was within acceptable limits.? She is also requesting multiple pain meds. ? EKG was done which showed prolonged QT interval of 553.? She has been given IV hydration and is being? placed under observation for medical m
[2023-05-09] MEDS: ACETAMINOPHEN 325 MG TABLET 650 MG PO (14:57)
== END 2023-05-09 15:15 | disposition home or self-care (01) | DRG 392 ==
LOC: ANHED 16:21 → ANH2MED 22:33
PROVIDERS: Internal Medicine Gastroenterology; Admitting Provider Family Medicine; Emergency Provider Emergency Medicine; Visit Provider Nurse Practitioner Acute Care
PROC: 0DJ08ZZ Inspection of Upper Intestinal Tract, Via Natural or Artificial Opening Endoscopic (ICD-10-PCS; CPT 43235; principal; 2023-05-09 14:00)
DX: K29.60 Other gastritis without bleeding (principal); E87.6 Hypokalemia; K63.5 Polyp of colon; K57.30 Diverticulosis of large intestine without perforation or abscess without bleeding; I10 Essential (primary) hypertension; D64.9 Anemia, unspecified; R94.31 Abnormal electrocardiogram [ECG] [EKG]; R11.2 Nausea with vomiting, unspecified; R00.1 Bradycardia, unspecified; F12.90 Cannabis use, unspecified, uncomplicated
CPT/HCPCS: 36415; 36569; 74018; 74177; 80048; 80053; 81001; 81003; 83690; 83735; 84100; 84132; 84484; 85025; 85610; 85730; 87081; 87086; 87088; 88305; 93005; 96361; 96365; 96374; 96375; 99285; A9270; C9113; G0378; J1170; J1885; J2060; J2405; J2704; J2765; J3480; J7030; J7040; J7120; Q9967

== ENCOUNTER 2023-11-01 02:52 | Emergency (ER) | payer OTHER, SELFPAY ==
--- NOTE | ~2023-11-01 | CT_ITS ---
CT of the Abdomen and Pelvis: Indication: Abdominal pain Technique: 2.5 mm axial scans were obtained through the abdomen and pelvis following intravenous adm inistration of 100 cc of Omnipaque 350. Dose reduction technique was used on this scan by utilizing a utomated exposure control and iterative reconstruction technique. The dose-length product (DLP) was 3 71.08 mGy-cm. COMPARISON: 05/05/2023 Findings: Scans through the lung bases are unremarkable. Stable tiny hepatic cysts. Cholecystectomy clips present. The spleen, pancreas, adrenals and kidneys are within normal limits. No evidence of aortic aneurysm. No lymphadenopathy. No bowel obstruction or bowel wall thickening. There is no evidence to suggest acute appendicitis. Images through the pelvis were performed. Urinary bladder unremarkable. No adnexal mass seen. No asci parker. Impression: No significant abnormalities seen. Reviewed, dictated and finalized at [facility]. Impression: No significant abnormalities seen.
--- NOTE | ~2023-11-01 | XR_ITS ---
Clinical Indication: Chest pain PA and lateral views of the chest: Comparison: 09/26/2022 Findings: The lungs are clear, without evidence of focal consolidation or pleural effusion. Cardiome diastinal silhouette is within normal limits. Bones and soft tissues are unremarkable. Impression: Normal chest. Reviewed, dictated and finalized at location . Impression: Normal chest.
[2023-11-01 03:11] VITALS: PULSE 80; RESP 16; O2SAT 100
--- NOTE | 2023-11-01 03:11 | ECG_ITS ---
Measurements Intervals [place] Rate: 79 P: 58 IN: 155 QRS: 51 QRSD: 93 T: 57 QT: 396 QTc: 455 Interpretive Statements SINUS RHYTHM BASELINE ARTIFACT- I, III, AVR, AVL NORMAL ECG COMPARED TO ECG 05/07/2023 11:18:00 SINUS RHYTHM NOW PRESENT Electronically Signed On 11-01-2023 6:27:14 CDT by Víctor Simon D.O.
--- NOTE | 2023-11-01 03:38 | PC.NURSE ---
per maritza lozada, ok to not give asa 324 at this time.
[2023-11-01] MEDS: SODIUM CHLORIDE 0.9% IV 1,000 ML 999 ML IV CONT (03:42)
[2023-11-01] MEDS: ONDANSETRON INJ 4 MG/2 ML VIAL IV PUSH (03:42)
[2023-11-01 03:45] VITALS: PULSE 71
--- NOTE | 2023-11-01 03:50 | ED.GENADULT ---
HPI - General Adult General Chief complaint: Unspecified Stated complaint: body aches/ hasn't used the bathroom Time Seen by Provider: 11/01/23 03:11 History of Present Illness HPI narrative: Patient is a 48-year-old female who presents emergency department with chief complaint of body aches cough generalized malaise abdominal pain urinating on herself whenever she coughs. Patient states she has also had diarrhea and reports that she has not really been eating and drinking well. Patient reports she has headache body aches patient reports she has prior history of diverticulosis and diverticulitis has had a bowel resection Related Data Allergies Allergy/AdvReac Type Severity Reaction Status Date / Time No Known Allergies Allergy Verified 05/05/23 15:52 Review of Systems Review of Systems: A 10 system review of systems was completed on the patient and is negative except for what is stated in the HPI. Nursing and ancillary documentation was reviewed. [facility] Past Medical History Medical History Diverticulitis of intestine with perforation and abscess (09/2022) Diverticulosis of colon Hypertension Weight loss Surgical History Surgical History History of ankle surgery History of laparoscopic cholecystectomy History of tubal ligation Family History Family History Other Family history non-contributory Social History Social History Social History: Surrogate medical decision maker: Soheila Gabriel, mother. Code status: Full code. Smoking status: Never smoker Second hand tobacco smoke exposure: No Alcohol intake: former Alcohol use details: Alcohol use in moderation. Substance use: current Substance use type: marijuana Lack of Transportation: No Lack of Food: Never True Current Housing: I Have Housing Concerned About Future Housing: No Difficulty Paying Gas/Electric Bills: No Difficulty Paying for Meds: No Currently Unemployed: No Education: High School Diploma/GED Difficulty w/ Childcare or Family Care: No Occupation/Education: occupation Additional occupation/education comments: Works for [employer] Spiritual care concerns: No Exam Narrative: GENERAL: Well-appearing, well-nourished, and in no acute distress. HEAD: Normocephalic, atraumatic. EYES: PERRLA and EOMI. ENT: Nares clear, no rhinorrhea or epistaxis. Mucous membranes moist. NECK: Supple. CHEST: Clear to auscultation. No respiratory distress. HEART: Regular rate and rhythm. No murmur heard. Normal peripheral pulses. ABDOMEN: Soft, diffusely tender to palpation, nondistended, normal active bowel sounds. EXTREMITIES: Normal range of motion. No edema. SKIN: Warm, dry, no rash. NEURO: No focal deficits. Alert and oriented x3. PSYCH: Normal mood and affect. Course Vital Signs Vital signs: Vital Signs Pulse Rate 80 11/01/23 03:11 Respiratory Rate 16 11/01/23 03:11 Pulse Oximetry 100 11/01/23 03:11 Pulse Rate 71 11/01/23 03:45 Respiratory Rate 16 11/01/23 03:11 Pulse Oximetry 100 11/01/23 03:11 Medical Decision Making MDM Narrative Medical decision making narrative: Differential diagnosis includes influenza, COVID, pyelonephritis, pneumonia, intra-abdominal infection. Patient is positive for influenza B urinalysis showed no evidence UTI electrolytes are within normal limits CBC showed a white count 2.6 chest x-ray showed no focal infiltrate CT of the abdomen pelvis showed no evidence of acute abnormality. Vital Signs Vital Signs: Vital Signs Pulse Rate 80 11/01/23 03:11 Respiratory Rate 16 11/01/23 03:11 Pulse Oximetry 100 11/01/23 03:11 Pulse Rate 71 11/01/23 03:45 Respiratory Rate 16 11/01/23
[2023-11-01 03:51] LABS: Basophils Percent Auto 0.8 % (0.2-1.2); Hematocrit 37.4 % (37.0-47.0); Hemoglobin 12.7 g/dL (12.0-15.0); Immature Granulocyte Absolute 0.01 K/mm3 (0.00-0.031); Immature Granulocyte Percent A 0.4 % (0-0.5); Lymphocytes Absolute Auto 0.84 K/mm3 (0.9-3.2); Lymphocytes Percent Auto 31.9 % (18.3-44.2); Mean Corpuscular Hemoglobin 28.5 pg (26-34); Mean Corpuscular Volume 83.9 fl (80-100); Mean Platelet Volume 9.4 fl (7.4-10.4); Monocytes Absolute Auto 0.5 K/mm3 (0.1-0.6); Monocytes Percent Auto 17.1 % (2.6-8.5); Neutrophils Absolute Auto 1.3 K/mm3 (1.3-6.7); Neutrophils Percent Auto 49.8 % (45.5-73.1); Platelet Count Result 278 k/mm3 (150-375); Red Blood Count 4.46 M/mm3 (4.2-5.4); Red Cell Distribution Width 14.5 % (11.5-14.5); White Blood Count 2.6 K/mm3 (4.5-10.0)
[2023-11-01 03:53] LABS: Influenza A QL RT-PCR Negative (Negative); Influenza B QL RT-PCR Positive (Negative); RSV RNA, RT-PCR Negative (Negative); SARS-CoV-2 RNA PCR Negative (Negative)
[2023-11-01 03:56] LABS: Lactic Acid Reflex 0.8 mmol/L (0.7-2.0)
[2023-11-01 03:57] LABS: Alanine Aminotransferase 23 U/L (6-35); Albumin Level 4.7 g/dL (3.5-5.1); Alkaline Phosphatase 80 U/L (38-126); Anion Gap 7 mmol/L (8-16); Aspartate Amino Transferase 41 U/L (14-36); Bilirubin,Total 0.6 mg/dL (0.2-1.3); Blood Urea Nitrogen 8 mg/dL (7-17); Calcium 9.6 mg/dL (8.4-10.2); Carbon Dioxide 25 mmol/L (22-30); Chloride 104 mmol/L (98-107); Estimated CRCL calculation 86 ml/min; Estimated Glomerular Filt Rate > 60; Glucose 104 mg/dL (65-110); INR 0.9; Lipase 130 U/L (23-300); Potassium 3.6 mmol/L (3.4-5.0); Prothrombin Time 12.8 Seconds (11.1-14.7); Sodium 136 mmol/L (137-145)
[2023-11-01 03:58] LABS: Partial Thromboplastin Time 28.7 Seconds (22.3-36.8)
[2023-11-01 04:19] LABS: Troponin I < 0.012 ng/mL (0.000-0.034)
[2023-11-01 06:02] LABS: Appearance Urine Clear (Clear); Bilirubin Urine Negative (Negative); Blood Urine Negative (Negative); Color Urine Yellow (Yellow); Glucose Urine UA Negative (Negative); Ketones Urine Negative (Negative); Leukocyte Esterase Ur Negative LEU/UL (Negative); Nitrate Urine Negative (Negative); Protein Urine Negative (Negative); Urobilinogen Urine 0.2 mg/dL (<2.0); pH Urine 6.5 (5.0-9.0)
[2023-11-01 06:07] LABS: Add Urine Microscopic? NO; Specific Grav Ur 1.041 (1.001-1.035)
[2023-11-01] MEDS: HYDROcodone/acetaminophen (*CRX) 5-325 MG TABLET 1 TAB PO (08:31)
[2023-11-01 08:42] VITALS: BP 144/86; PULSE 86; RESP 16; O2SAT 99
== END 2023-11-01 08:43 | disposition home or self-care (01) ==
PROVIDERS: Emergency Provider Emergency Medicine
DX: J10.1 Influenza due to other identified influenza virus with other respiratory manifestations (principal); Z20.822 Contact with and (suspected) exposure to COVID-19; I10 Essential (primary) hypertension; Z90.49 Acquired absence of other specified parts of digestive tract
CPT/HCPCS: 36415; 71046; 74177; 80053; 83605; 83690; 84484; 85025; 85610; 85730; 87637; 93005; 96361; 96374; 99284; A9270; J2405; J7030; Q9967